=== PATIENT | male | born 1945 | race African-American/Black ===

== ENCOUNTER 2017-08-14 13:43 | Inpatient (IN) | payer MEDICARE, MEDICAID ==
[~2017-08-14] VITALS: Ht 185.4 cm; Wt 79.4 kg
[~2017-08-14 13:43] MED LIST: ASPIR-LOW81 MG PO; IBUPROFEN600 MG ORAL; LOSARTAN-HCTZ1 EACH PO; MOTRIN600 MG PO; NORCO 10-325 T1 EACH PO; NORCO 5-325 TA1 EACH ORAL; NORCO 5-325 TA1 EACH PO; NORVASC10 MG PO; UNOBMED; ZOFRAN4 MG PO
[2017-08-14 13:49] VITALS: BP 105/67
[2017-08-14] MEDS ORDERED: Sodium Chloride 500ML 500 ML IV ONE (13:57)
--- NOTE | 2017-08-14 14:00 | Emergency Room Report ---
History of Present Illness General Chief Complaint: General Complaint Source: Patient Present Illness HPI Patient reports a 2 and half weeks ago he had an episode where he felt dizzy lightheaded describes a syncopal episode After the patient sat up he felt better Since then he has traveled to [place] and came back During the flight then coming back he feels that he has had increased congestion no cough Complains of general malaise and weakness Denies any focal weakness denies any chest pain or shortness of breath His cough with phlegm production does continue Denies any neck pain or photophobia Allergies: Coded Allergies: No Known Allergies (Unverified , 12/09/12) Patient History Past Medical History: see triage record Pertinent Family History: none Reviewed Nursing Documentation: PMH: Agreed, PSxH: Agreed Nursing Documentation-PMH Hx Cardiac Problems: Yes Hx Hypertension: Yes Hx Cancer: No Hx Neurological Problems: No Review of Systems All Other Systems: negative except mentioned in HPI Physical Exam Vital Signs Date Time Temp Pulse Resp B/P (MAP) Pulse Ox O2 Delivery O2 Flow Rate FiO2 08/14/17 13:49 98.1 123 20 105/67 93 Room Air Sp02 EP Interpretation: reviewed, normal General Appearance: well appearing, no apparent distress Head: normocephalic, atraumatic Eyes: bilateral eye PERRL, bilateral eye EOMI ENT: hearing grossly normal, normal pharynx, TMs + canals normal, uvula midline Neck: full range of motion, supple, no meningismus, no bony tend Respiratory: lungs clear, normal breath sounds, no rhonchi, no respiratory distress, no retraction, no accessory muscle use Cardiovascular #1: normal peripheral pulses, regular rate, rhythm, no edema, no gallop, no JVD, no murmur Gastrointestinal: normal bowel sounds, non tender, soft, no mass, no organomegaly, non-distended, no guarding, no hernia, no pulsatile mass, no rebound Genitourinary: no CVA tenderness Musculoskeletal: normal inspection Neurologic: oriented x3, responsive, vamp creaser III-XII nml as tested, motor strength/ tone normal, sensory intact Psychiatric: mood/affect normal Skin: normal color, no rash, warm/dry, palpation normal Lymphatic: normal inspection, no adenopathy Medical Decision Making Diagnostic Impression: Primary Impression: Dehydration Additional Impression: Sepsis ER Course Given the patient's presentation multiple differentials considered Blood work and imaging studies initiated Patient has done better throughout his stay feels better Patient's white blood cell count is elevated Unfortunately I was told that the patient was not able to obtain urine prior to transfer however given the initial complaint to be dark urine and the patient's general weakness UTI and sepsis is considered highly In order not to delay acute care patient was given antibiotics And at this time require transfer secondary to insurance purposes for continued inpatient care Labs Test 08/14/17 14:10 08/14/17 16:00 08/16/17 06:55 White Blood Count 9.2 K/UL (4.8-10.8) 8.1 K/UL (4.8-10.8) Red Blood Count 3.75 M/UL (4.70-6.10) 3.07 M/UL (4.70-6.10) Hemoglobin 11.9 G/DL (14.2-18.0) 10.2 G/DL (14.2-18.0) Hematocrit 36.0 % (42.0-52.0) 29.4 % (42.0-52.0) Mean Corpuscular Volume 96 FL (80-99) 96 FL (80-99) Mean Corpuscular Hemoglobin 31.7 PG (27.0-31.0) 33.2 PG (27.0-31.0) Mean Corpuscular Hemoglobin Concent 32.9 G/DL (32.0-36.0) 34.6 G/DL (32.0-36.0) Red Cell Distribution Width 12.8 % (11.6-14.8) 12.4 % (11.6-14.8) Platelet Count 181 K/UL (150-450) 158 K/UL (150-450) Mean Platelet Volume 8.1 FL (6.5-10.1) 7.1 FL (6.5-10.1) Neutrophils (%) (Auto) 68.8 % (45.0-75.0) % (45.0-75.0) Lymphocytes (%) (Auto) 15.2 % (20.0-45.0) % (20.0-45.0) Monocytes (%) (Auto) 15.7 % (1.0-10.0) % (1.0-10.0) Eosinophils (%) (Auto) 0.0 % (0.0-3.0) % (0.0-3.0) Basophils (%) (Auto) 0.3 % (0.0-2.0) % (0.0-2.0) Sodium Level 135 mEQ/L (135-145) Potassium Level 3.9 mEQ/L (3.4-4.9) Chloride Level 93 mEQ/L (98-107) Carbon Dioxide Level 24 mEQ/L (20-30) Anion Gap 18 (5-15) Blood Urea Nitrogen 10 mg/dL (7-23) Creatinine 1.6 mg/dL (0.7-1.2) Estimat Glomerular Filtration Rate mL/min (>60) Glucose Level 154 mg/dL (74-106) Calcium Level 8.9 mg/dL (8.6-10.2) Total Bilirubin 0.9 mg/dL (0.0-1.2) Aspartate Amino Transf (AST/SGOT) 30 U/L (5-40) Alanine Aminotransferase (ALT/SGPT) 16 U/L (3-41) Alkaline Phosphatase 135 U/L (40-129) Total Creatine Kinase 66 U/L (38-174) Creatine Kinase MB < 1.5 ng/mL (< 6.7) Creatine Kinase MB Relative Index Troponin I < 0.30 ng/mL (<=0.30) Pro-B-Type Natriuretic Peptide 581 pg/mL (0-125) Total Protein 8.6 g/dL (6.6-8.7) Albumin 4.2 g/dL (3.5-5.2) Globulin 4.4 g/dL Albumin/Globulin Ratio 0.9 (1.0-2.7) Lipase 11 U/L (< 60) Urine Color Yellow Urine Appearance Clear Urine pH 9 (4.5-8.0) Urine Specific [place] 1.015 (1.005-1.035) Urine Protein 1+ (NEGATIVE) Urine Glucose (UA) Negative (NEGATIVE) Urine Ketones Negative (NEGATIVE) Urine Occult Blood 2+ (NEGATIVE) Urine Nitrite Negative (NEGATIVE) Urine Bilirubin Negative (NEGATIVE) Urine Urobilinogen 4 MG/DL (0.0-1.0) Urine Leukocyte Esterase 1+ (NEGATIVE) Urine RBC 5-10 /HPF (0 - 0) Urine WBC 0-2 /HPF (0 - 0) Urine Squamous Epithelial Cells None /LPF (NONE/OCC) Urine Bacteria None /HPF (NONE) EKG Diagnostic Results Rate: normal Rhythm: NSR ST Segments: no acute changes Rhythm Strip Diag. Results EP Interpretation: yes Rate: 78 Rhythm: NSR, no PVC's, no ectopy Chest X-Ray Diagnostic Results Chest X-Ray Diagnostic Results : Chest X-Ray Ordered: Yes Indication: Chest Pain EP Interpretation: Yes Interpretation: no consolidation, no effusion, no pneumothorax Impression: No acute disease Electronically Signed by: Kassandra Tran DO Last Vital Signs Date Time Temp Pulse Resp B/P (MAP) Pulse Ox O2 Delivery O2 Flow Rate FiO2 08/14/17 13:49 98.1 123 20 105/67 93 Room Air Status: improved Disposition: [facility] Condition: Improved KASSANDRA TRAN D.O. Aug 14, 2017 14:00
--- NOTE | 2017-08-14 14:42 | Diagnostic Imaging Report ---
Indication: Dyspnea Comparison: 05/23/10 A single view chest radiograph was obtained. Findings: Cardiomediastinal appearance is within normal limits for age. Pulmonary vascularity is appropriate. The diaphragmatic contour is smooth and costophrenic angles are sharp. No pleural effusions are identified. The bones are osteopenic. Impression: No acute findings
[2017-08-14 14:43] LABS: BASOPHILS % (AUTO) 0.3 % (0.0-2.0); LYMPHOCYTES % (AUTO) 15.2 % (20.0-45.0); MEAN CORPUSCULAR HEMOGLOBIN 31.7 PG (27.0-31.0); MEAN CORPUSCULAR HGB CONC 32.9 G/DL (32.0-36.0); MEAN CORPUSCULAR VOLUME 96 FL (80-99); MEAN PLATELET VOLUME 8.1 FL (6.5-10.1); MONOCYTES % (AUTO) 15.7 % (1.0-10.0); NEUTROPHILS % (AUTO) 68.8 % (45.0-75.0); PLATELET COUNT 181 K/UL (150-450); RED BLOOD COUNT 3.75 M/UL (4.70-6.10); RED CELL DISTRIBUTION WIDTH 12.8 % (11.6-14.8); WHITE BLOOD COUNT 9.2 K/UL (4.8-10.8)
[2017-08-14 15:05] VITALS: BP 120/67
[2017-08-14 15:09] LABS: TROPONIN I < 0.30 ng/mL (<=0.30)
[2017-08-14 15:12] LABS: ALANINE AMINOTRANSFERASE 16 U/L (3-41); ALBUMIN/GLOBULIN RATIO 0.9 (1.0-2.7); ANION GAP 18 (5-15); ASPARTATE AMINO TRANSFERASE 30 U/L (5-40); CALCIUM 8.9 mg/dL (8.6-10.2); CARBON DIOXIDE 24 mEQ/L (20-30); CHLORIDE 93 mEQ/L (98-107); CREATININE 1.6 mg/dL (0.7-1.2); HEMOLYSIS 0; LIPASE 11 U/L (< 60); POTASSIUM 3.9 mEQ/L (3.4-4.9); SODIUM 135 mEQ/L (135-145); TOTAL PROTEIN 8.6 g/dL (6.6-8.7)
[2017-08-14 15:23] LABS: CKMB < 1.5 ng/mL (< 6.7)
[2017-08-14 16:17] LABS: APPEARANCE,URINE CLEAR; KETONES,URINE NEGATIVE (NEGATIVE); LEUKOCYTE ESTERASE ,URINE 1+ (NEGATIVE); NITRITE,URINE NEGATIVE (NEGATIVE); PH,URINE 9 (4.5-8.0); PROTEIN,URINE 1+ (NEGATIVE); UROBILINOGEN,URINE 4 MG/DL (0.0-1.0)
[2017-08-14 16:41] LABS: WBC,URINE 0-2 /HPF (0 - 0)
[2017-08-14 17:01] VITALS: BP 108/60
[2017-08-14] MEDS ORDERED: TAMSULOSIN HCL0.4 MG ORAL (17:36)
[2017-08-14 19:36] VITALS: BP 115/76
[2017-08-15] VITALS: BP 125/69
[2017-08-15 04:00] VITALS: BP 106/67
[2017-08-15 08:30] VITALS: BP 112/68
--- NOTE | 2017-08-15 11:33 | Consultation ---
Consult Note Consult Note asked to eval for Cr 1.6 Patient reports a 2 and half weeks ago he had an episode where he felt dizzy lightheaded describes a syncopal episode After the patient sat up he felt better Since then he has traveled to [place] and came back During the flight then coming back he feels that he has had increased congestion no cough Complains of general malaise and weakness Denies any focal weakness denies any chest pain or shortness of breath His cough with phlegm production does continue Denies any neck pain or photophobia Hx Cardiac Problems: Yes Hx Hypertension: Yes patient been on Ibuprofen , HCTZ and Coozar Also has anemia Examined- data reviewed Assessment/Plan Renal failure, likely acute( dehydration and Low BP) Anemia h/o HTN presents with Syncope Plan: Fluid challenge- Hold BP meds Monitor renal parameters and lytes Gastric support SHANNON CLINE Aug 15, 2017 11:33
[2017-08-15 12:00] VITALS: BP 117/70
[2017-08-15] MEDS ORDERED: Promethazine/Codeine 5ml UD ORAL PRN ×2 (13:00→17:00)
[2017-08-15] MEDS ORDERED: Albuterol/Ipratropium 3ml neb HHN SCH ×2 (13:00→19:00)
--- NOTE | 2017-08-15 13:03 | Consultation ---
History of Present Illness General Date patient seen: Aug 15, 2017 Chief Complaint: General Complaint Reason for Consultation: cough Present Illness HPI 72 year old with hx of smoking presented with CC of cough and yellowish phlegm for a few days. C/o of episode of syncope a few days ago. He smokes for many years about 1/2 pack a day. Allergies: Coded Allergies: No Known Allergies (Unverified , 12/09/12) Medication History Scheduled Amlodipine Besylate (Norvasc), 10 MG PO DAILY, (Reported) Aspirin* (Aspir-Low*), 81 MG PO DAILY, (Reported) Hydrocodone Bit/Acetaminophen 10-325* ([place] 10-325*), 1 TAB PO Q6H Hydrocodone Bit/Acetaminophen 5-325* ([place] 5-325*), 1 TAB PO Q6H Ibuprofen* (Motrin*), 600 MG PO QID, (Reported) Ibuprofen* (Motrin*), 600 MG ORAL THREE TIMES A DAY Losartan/Hydrochlorothiazide (Losartan-Hctz 100-12.5 Mg Tab), 1 TAB PO DAILY, ( Reported) Ondansetron (Zofran), 4 MG PO Q8H Tamsulosin Hcl (Tamsulosin Hcl*), 0.4 MG ORAL DAILY, (Reported) Scheduled PRN Hydrocodone Bit/Acetaminophen 5-325* ([place] 5-325*), 1 TAB ORAL Q6H PRN for For Pain Hydrocodone Bit/Acetaminophen 5-325* ([place] 5-325*), 1 TAB ORAL Q6H PRN for For Pain Patient History Healthcare decision maker Resuscitation status Full Code Advanced Directive on File No Past Medical/Surgical History Past Medical/Surgical History: (1) COPD (chronic obstructive pulmonary disease) Review of Systems Respiratory: Reports: cough, shortness of breath, sputum All Other Systems: negative except mentioned in HPI Physical Exam General Appearance: WD/WN Lines, tubes and drains: peripheral HEENT: normocephalic, atraumatic Neck: non-tender, normal alignment Respiratory/Chest: chest wall non-tender, lungs clear Breasts: no masses Cardiovascular/Chest: normal peripheral pulses Abdomen: normal bowel sounds, non tender Last 24 Hour Vital Signs Date Time Temp Pulse Resp B/P (MAP) Pulse Ox O2 Delivery O2 Flow Rate FiO2 08/15/17 08:30 97.7 93 19 112/68 90 Room Air 9/27/17 08:00 91 08/15/17 04:00 97.5 96 20 106/67 96 Room Air 08/15/17 03:50 86 08/15/17 00:00 97.5 94 20 125/69 97 Room Air 08/14/17 23:54 92 08/14/17 21:22 95 21 114/72 97 Room Air 08/14/17 19:36 98.2 103 20 115/76 100 Room Air 08/14/17 17:01 97.8 98 20 108/60 97 Room Air 08/14/17 15:05 98.1 96 18 120/67 98 Room Air 08/14/17 13:49 98.1 123 20 105/67 93 Room Air 08/14/17 13:49 98.1 123 20 105/67 93 Room Air Laboratory Tests Test 08/14/17 14:10 08/14/17 16:00 White Blood Count 9.2 K/UL (4.8-10.8) Red Blood Count 3.75 M/UL (4.70-6.10) L Hemoglobin 11.9 G/DL (14.2-18.0) L Hematocrit 36.0 % (42.0-52.0) L Mean Corpuscular Volume 96 FL (80-99) Mean Corpuscular Hemoglobin 31.7 PG (27.0-31.0) H Mean Corpuscular Hemoglobin Concent 32.9 G/DL (32.0-36.0) Red Cell Distribution Width 12.8 % (11.6-14.8) Platelet Count 181 K/UL (150-450) Mean Platelet Volume 8.1 FL (6.5-10.1) Neutrophils (%) (Auto) 68.8 % (45.0-75.0) Lymphocytes (%) (Auto) 15.2 % (20.0-45.0) L Monocytes (%) (Auto) 15.7 % (1.0-10.0) H Eosinophils (%) (Auto) 0.0 % (0.0-3.0) Basophils (%) (Auto) 0.3 % (0.0-2.0) Sodium Level 135 mEQ/L (135-145) Potassium Level 3.9 mEQ/L (3.4-4.9) Chloride Level 93 mEQ/L (98-107) L Carbon Dioxide Level 24 mEQ/L (20-30) Anion Gap 18 (5-15) H Blood Urea Nitrogen 10 mg/dL (7-23) Creatinine 1.6 mg/dL (0.7-1.2) H Estimat Glomerular Filtration Rate mL/min (>60) Glucose Level 154 mg/dL (74-106) H Calcium Level 8.9 mg/dL (8.6-10.2) Total Bilirubin 0.9 mg/dL (0.0-1.2) Aspartate Amino Transf (AST/SGOT) 30 U/L (5-40) Alanine Aminotransferase (ALT/SGPT) 16 U/L (3-41) Alkaline Phosphatase 135 U/L (40-129) H Total Creatine Kinase 66 U/L (38-174) Creatine Kinase MB < 1.5 ng/mL (< 6.7) Creatine Kinase MB Relative Index Troponin I < 0.30 ng/mL (<=0.30) Pro-B-Type Natriuretic Peptide 581 pg/mL (0-125) H Total Protein 8.6 g/dL (6.6-8.7) Albumin 4.2 g/dL (3.5-5.2) Globulin 4.4 g/dL Albumin/Globulin Ratio 0.9 (1.0-2.7) L Lipase 11 U/L (< 60) Urine Color Yellow Urine Appearance Clear Urine pH 9 (4.5-8.0) Urine Specific [place] 1.015 (1.005-1.035) Urine Protein 1+ (NEGATIVE) H Urine Glucose (UA) Negative (NEGATIVE) Urine Ketones Negative (NEGATIVE) Urine Occult Blood 2+ (NEGATIVE) H Urine Nitrite Negative (NEGATIVE) Urine Bilirubin Negative (NEGATIVE) Urine Urobilinogen 4 MG/DL (0.0-1.0) H Urine Leukocyte Esterase 1+ (NEGATIVE) H Urine RBC 5-10 /HPF (0 - 0) H Urine WBC 0-2 /HPF (0 - 0) Urine Squamous Epithelial Cells None /LPF (NONE/OCC) Urine Bacteria None /HPF (NONE) Height (Feet): 6 Height (Inches): 1.00 Weight (Pounds): 175 Medications Current Medications Medications (Trade) Dose Ordered Sig/Bree Route PRN Reason Start Time Stop Time Status Last Admin Dose Admin Acetaminophen (Tylenol) 650 mg Q6H PRN ORAL Mild Pain/Temp > 100.5 08/14/17 22:45 09/13/17 22:44 Albuterol/ Ipratropium (DuoNeb 0.5-3(2.5)mg/3ml) 3 ml Q6HRT HHN 08/15/17 13:00 08/20/17 12:59 UNV Aspirin (Ecotrin) 81 mg DAILY ORAL 08/16/17 09:00 09/15/17 08:59 Dextrose (Dextrose 50%) STAT PRN IV Hypoglycemia 08/15/17 06:30 09/14/17 06:29 Piperacillin Sod/ Tazobactam Sod 3.375 gm/Sodium Chloride 110 ml @ 220 mls/hr EVERY 8 HOURS IVPB 08/15/17 14:00 08/22/17 13:59 UNV Promethazine HCl/ Codeine (Phenergan with Codeine) 5 ml Q4H PRN ORAL For Cough 08/15/17 13:00 09/14/17 12:59 UNV Sodium Chloride 1,000 ml @ 100 mls/hr Q10H IV 08/15/17 11:45 08/15/17 21:44 08/15/17 11:45 Tamsulosin HCl (Flomax) 0.4 mg QHS ORAL 08/15/17 21:00 09/15/17 08:59 Theophylline (Sky-Dur) 100 mg EVERY 12 HOURS ORAL 08/15/17 21:00 09/14/17 20:59 UNV Assessment/Plan Problem List: (1) Purulent bronchitis ICD Codes: J41.1 - Mucopurulent chronic bronchitis SNOMED: 19316229 (2) COPD (chronic obstructive pulmonary disease) ICD Codes: J44.9 - Chronic obstructive pulmonary disease, unspecified SNOMED: 98191562 Assessment/Plan check sputum respiratory treatment IV abx incentive spirometry LORY JERNIGAN Aug 15, 2017 13:03
[2017-08-15] MEDS ORDERED: Piperacillin/Tazobactam 3.375 GM in NS 110 ML IVPB SCH ×5 (14:00→22:00)
[2017-08-15] MEDS ORDERED: Aspirin EC 81mg tab ORAL SCH (17:00)
--- NOTE | 2017-08-15 17:25 | Cardiac Electrophysiology PN ---
Subjective Subjective [id number] Objective Last 24 Hour Vital Signs Date Time Temp Pulse Resp B/P (MAP) Pulse Ox O2 Delivery O2 Flow Rate FiO2 08/15/17 13:35 96 18 100 Room Air 08/15/17 13:30 93 18 100 Room Air 08/15/17 12:00 98.3 89 18 117/70 92 Room Air 08/15/17 08:30 97.7 93 19 112/68 90 Room Air 08/15/17 08:00 91 08/15/17 04:00 97.5 96 20 106/67 96 Room Air 08/15/17 03:50 86 08/15/17 00:00 97.5 94 20 125/69 97 Room Air 08/14/17 23:54 92 08/14/17 21:22 95 21 114/72 97 Room Air 08/14/17 19:36 98.2 103 20 115/76 100 Room Air VINITA HERNÁNDEZ Aug 15, 2017 17:25
--- NOTE | 2017-08-15 17:54 | Infectious Diseases Prog Note ---
Assessment/Plan Problems: (1) Purulent bronchitis Assessment & Plan: will start levaquin, and stop zosyn ,continue bronchodilaters (2) UTI (urinary tract infection) Assessment & Plan: will send urine culture and start levaquin (3) COPD (chronic obstructive pulmonary disease) Assessment & Plan: continue antibiotics, bronchodilators, monitor CXR Subjective Allergies: Coded Allergies: No Known Allergies (Unverified , 12/09/12) Objective Vital Signs Last 24 Hour Vital Signs Date Time Temp Pulse Resp B/P (MAP) Pulse Ox O2 Delivery O2 Flow Rate FiO2 08/15/17 13:35 96 18 100 Room Air 08/15/17 13:30 93 18 100 Room Air 08/15/17 12:00 98.3 89 18 117/70 92 Room Air 08/15/17 08:30 97.7 93 19 112/68 90 Room Air 08/15/17 08:00 91 08/15/17 04:00 97.5 96 20 106/67 96 Room Air 08/15/17 03:50 86 08/15/17 00:00 97.5 94 20 125/69 97 Room Air 08/14/17 23:54 92 08/14/17 21:22 95 21 114/72 97 Room Air 08/14/17 19:36 98.2 103 20 115/76 100 Room Air Height (Feet): 6 Height (Inches): 1.00 Weight (Pounds): 175 Current Medications Medications (Trade) Dose Ordered Sig/Bree Route PRN Reason Start Time Stop Time Status Last Admin Dose Admin Acetaminophen (Tylenol) 650 mg Q6H PRN ORAL Mild Pain/Temp > 100.5 08/15/17 17:00 09/13/17 16:59 Albuterol/ Ipratropium (DuoNeb 0.5-3(2.5)mg/3ml) 3 ml Q6HRT HHN 08/15/17 19:00 08/20/17 12:59 Aspirin (Ecotrin) 81 mg DAILY ORAL 08/15/17 17:00 09/14/17 16:59 08/15/17 17:12 Dextrose (Dextrose 50%) STAT PRN IV Hypoglycemia 08/15/17 17:00 09/14/17 16:59 Piperacillin Sod/ Tazobactam Sod 3.375 gm/Sodium Chloride 110 ml @ 27.5 mls/hr EVERY 8 HOURS IVPB 08/15/17 22:00 08/22/17 13:59 Promethazine HCl/ Codeine (Phenergan with Codeine) 5 ml Q4H PRN ORAL For Cough 08/15/17 17:00 09/14/17 12:59 Tamsulosin HCl (Flomax) 0.4 mg QHS ORAL 08/15/17 21:00 09/15/17 08:59 Theophylline (Sky-Dur) 100 mg EVERY 12 HOURS ORAL 08/15/17 21:00 09/14/17 20:59 Kristal Mendenhall M.D. Aug 15, 2017 17:54
[2017-08-15] MEDS ORDERED: Tubing IV Secondary IV ONE (18:32)
[2017-08-15 19:59] VITALS: BP 131/78
[2017-08-15] MEDS ORDERED: Miralax 17gm pkt ORAL PRN ×2 (20:00→22:28)
[2017-08-15] MEDS ORDERED: Tamsulosin 0.4mg cap ORAL SCH ×2 (21:00)
[2017-08-15] MEDS ORDERED: Theophylline ER 100mg ORAL SCH ×2 (21:00)
[2017-08-15] MEDS ORDERED: LORazepam Inj 2mg/ml 1ml IV PRN ×2 (21:15→22:15)
[2017-08-15] MEDS: Albuterol/Ipratropium 3ml neb HHN SCH (22:43)
[2017-08-16] VITALS: BP 130/77
[2017-08-16] MEDS: Promethazine/Codeine 5ml UD ORAL PRN ×4 (00:53→19:30)
--- NOTE | 2017-08-16 04:00 | Consultation ---
DATE OF CONSULTATION: 08/15/2017 NOTE: "INCOMPLETE DICTATION" INFECTIOUS DISEASES CONSULTATION CONSULTING PHYSICIAN: Kristal Mendenhall M.D. REQUESTING PHYSICIAN: Kassandra Shelton M.D. Reason For Consultation: Bronchitis and urine infection, recommendation for antibiotics therapy. History Of Present Illness: The patient is a 72-year-old male with past medical history of coronary artery disease and hypertension, presented to the hospital at [facility] with dizziness and lightheadedness with presyncopal episodes. Symptoms started two and a half weeks ago. Since he traveled to [place] and came back, he developed congestion and cough productive of yellowish phlegm. Denied any fever or chills. Denied any sick contacts. No shortness of breath. No chest pain. The patient had a chest x-ray in the emergency room, it did not show any acute infiltration. Urinalysis showed evidence of urine infection. The patient was given Zosyn in the emergency room and I was consulted by the primary provider for antibiotics treatment and further management. Past Medical History: Significant for coronary artery disease and hypertension. PAST SURGICAL HISTORY: Negative. Medications: He is on Zosyn IV by the admitting physician. For the rest of his medications, please refer to MAR. ALLERGIES: He has no known drug allergy. Social History: The patient lives with family. Denied using any drugs, tobacco, or alcohol. FAMILY HISTORY: Negative. Review Of Systems: A 14-point of system reviewed were all negative apart from the one I mentioned above in my History and Physical. Kristal Mendenhall M.D. DR: LUCY JOB#: [id number] CC:
[2017-08-16 04:28] VITALS: BP 106/66
[2017-08-16 07:11] LABS: MEAN CORPUSCULAR HEMOGLOBIN 33.2 PG (27.0-31.0); MEAN CORPUSCULAR HGB CONC 34.6 G/DL (32.0-36.0); MEAN CORPUSCULAR VOLUME 96 FL (80-99); MEAN PLATELET VOLUME 7.1 FL (6.5-10.1); PLATELET COUNT 158 K/UL (150-450); RED BLOOD COUNT 3.07 M/UL (4.70-6.10); RED CELL DISTRIBUTION WIDTH 12.4 % (11.6-14.8); WHITE BLOOD COUNT 8.1 K/UL (4.8-10.8)
[2017-08-16] MEDS: Albuterol/Ipratropium 3ml neb HHN SCH (07:42)
[2017-08-16 07:43] LABS: TROPONIN I < 0.30 ng/mL (<=0.30)
[2017-08-16 07:48] LABS: HEMOLYSIS 6; IRON 60 ug/dL (59-158); TOTAL IRON BINDING CAPACITY 237 ug/dL (250-400)
[2017-08-16 07:49] LABS: ALANINE AMINOTRANSFERASE 19 U/L (3-41); ALBUMIN/GLOBULIN RATIO 0.8 (1.0-2.7); ANION GAP 16 (5-15); ASPARTATE AMINO TRANSFERASE 28 U/L (5-40); CALCIUM 8.6 mg/dL (8.6-10.2); CARBON DIOXIDE 22 mEQ/L (20-30); CHLORIDE 92 mEQ/L (98-107); CREATININE 1.3 mg/dL (0.7-1.2); CRP QUANT 6.5 mg/dL (< 0.5); MAGNESIUM 1.7 mg/dL (1.7-2.5); PHOSPHORUS 3.6 mg/dL (2.5-4.8); POTASSIUM 4.2 mEQ/L (3.4-4.9); SODIUM 130 mEQ/L (135-145); TOTAL PROTEIN 7.6 g/dL (6.6-8.7); URIC ACID 7.8 mg/dL (3.0-7.5)
[2017-08-16 07:54] LABS: FERRITIN 780 ng/mL (10-230)
[2017-08-16 08:03] VITALS: BP 107/65
[2017-08-16] MEDS: Aspirin EC 81mg tab ORAL SCH (08:08)
[2017-08-16] MEDS: Theophylline ER 100mg ORAL SCH ×2 (08:08→21:49)
[2017-08-16 08:34] LABS: HEMOGLOBIN A1C 6.7 % (< 6.0)
[2017-08-16 08:49] LABS: BAND NEUTROPHILS % (MANUAL) 0 % (0-8); BASOPHILS % (MANUAL) 0 % (0-2); EOSINOPHILS % (MANUAL) 0 % (0-3); LYMPHOCYTES % (MANUAL) 22 % (20-45); NEUTROPHILS % (MANUAL) 60 % (45-75); PLATELET ESTIMATE ADEQUATE; PLATELET MORPHOLOGY NORMAL; TOTAL CELLS COUNTED 100
[2017-08-16] MEDS ORDERED: Tamsulosin 0.4mg cap ORAL SCH ×2 (09:00→21:00)
[2017-08-16] MEDS ORDERED: Aspirin EC 81mg tab ORAL SCH (09:00)
--- NOTE | 2017-08-16 09:00 | History and Physical Report ---
DATE OF ADMISSION: 08/14/2017 History of Present Illness: The patient admitted for dehydration and syncope. The patient had a syncope. According to him, it was about 2 weeks ago. The patient is weak, has flu-like symptoms for the past couple of days including rhinorrhea, weakness, dizziness with cough and was admitted per the ER doctor for syncope workup as well as for azotemia and elevated BNP. We need to see if the patient has any congestive heart failure or not. Also we work the patient up for that as well. The patient denies any orthopnea. Denies leg edema. Denies fever or chills. Denies shortness of breath. Denies wheezing, but does have cough. PAST MEDICAL HISTORY: Significant for hypertension and BPH. PAST SURGICAL HISTORY: None. MEDICATIONS: Aspirin, hydrochlorothiazide, Flomax, and Norvasc. ALLERGIES: None. Social History: The patient has history of smoking, history of drug abuse, and history of alcohol abuse. FAMILY HISTORY: Noncontributory. Review of Systems: HEENT: Denies headaches. Respiratory: Denies shortness of breath. Does have cough, nonproductive, for the last couple of days. Cardiovascular: Denies chest pain. Denies orthopnea. Gastrointestinal: Denies nausea, vomiting, or diarrhea. Extremities: Denies any pain in the lower extremities. Central Nervous System: Reports a syncopal episode recently and also has dizziness with each cough that he makes. He feels dizzy. Denies diplopia. PHYSICAL EXAMINATION: Vital Signs: Temperature is 97.5, pulse is 94, and blood pressure 135/69. HEENT: PERRLA. NECK: Supple. No lymphadenopathy. CHEST: Clear to auscultation. CARDIOVASCULAR: Regular rate and rhythm. Gastrointestinal: Soft. Nondistended. Positive bowel sounds. Nontender. EXTREMITIES: 1+ edema. Neurologic: Reflexes are equal on both sides. Moves all 4 extremities. Sensory intact to light touch. Laboratory And Diagnostic Data: WBC of 9.3, hemoglobin of 11.9, and platelets of 181,000. Sodium 135, potassium of 3.9, BUN of 10, creatinine of 1.6, and glucose of 154. Assessment And Plan: Rule out congestive heart failure. The patient also has a syncope episode and we will do a syncopal workup. The patient also has azotemia. For the above-mentioned findings and diagnoses, I have consulted Dr. Edouard, Dr. Melo, Dr. Barraza, and Dr. Yanes 02:46 diagnoses and for the above-mentioned problems. Kassandra Shelton M.D. DR: SOTERO JOB#: [id number] CC:
--- NOTE | 2017-08-16 09:02 | Consultation ---
DATE OF CONSULTATION: 08/15/2017 CARDIOLOGY CONSULTATION CONSULTING PHYSICIAN: Santiago Yanes M.D. REFERRING PHYSICIAN: Kassandra Shelton M.D. REASON FOR CONSULTATION: Presyncope and shortness of breath. History Of Present Illness: The patient is a 72-year-old gentleman with history of hypertension and diabetic hypertrophy as well as history of heavy smoking, presented to the hospital with episode of presyncope a few days ago. The patient also was complaining of cough and yellowish phlegm for few days. The patient was admitted and a Cardiology consultation was obtained for further evaluation and management. PAST MEDICAL HISTORY: Hypertension. FAMILY HISTORY: Not contributory. SOCIAL HISTORY: He lives at home. Continues to smoke cigarettes. Review Of Systems: His review of system was performed and was negative other what was mentioned in history of present illness. PHYSICAL EXAMINATION: Vital Signs: Blood pressure is 117/70, pulse 89, respirations 18, and temperature is 98.3 degrees. HEAD AND NECK: Shows no JVD. LUNGS: Coarse rhonchi bilaterally. CARDIOVASCULAR: Shows regular S1 and S2 with no gallop or murmur. ABDOMEN: Soft. EXTREMITIES: There is no pitting edema. Laboratory Data: Labs show white count of 9.2, hemoglobin of 12, hematocrit of 36, and platelet count is 181,000. Sodium 135, potassium 3.9, BUN of 10, creatinine 1.6, and glucose 154. Troponin is negative. BNP is 581. ASSESSMENT AND PLAN: 1. Presyncope. The patient does not have any arrhythmia. His BNP level is 581. We will order an echocardiogram to evaluate for ejection fraction and wall motion abnormality. His EKG also showed normal sinus rhythm with poor R-wave progression. 2. Hypertension. The patient was on Norvasc that was discontinued earlier as the blood pressure was in the 100s. We will hold off on antihypertensives, otherwise we can resume the patient's later on. Obviously, hydrochlorothiazide and Cozaar were discontinued for renal failure. 3. Chronic kidney disease. Creatinine 1.6. Again, hold on Cozaar and hydrochlorothiazide. 4. Presyncope. This is not clear at this time. We will do an echocardiogram for further evaluation. Thank you very much, Dr. Shelton, for allowing me to participate in the care of this patient. Please do not hesitate to contact for any questions regarding my evaluation. Santiago Yanes M.D. DR: ANAND JOB#: [id number] CC:
--- NOTE | 2017-08-16 09:15 | Consultation ---
DATE OF CONSULTATION: 08/15/2017 HEMATOLOGY/ONCOLOGY CONSULTATION CONSULTING PHYSICIAN: Luis Frausto M.D. REQUESTING PHYSICIAN: Kassandra Shelton M.D. REASON FOR CONSULTATION: Evaluation of anemia. IDENTIFICATION DATA: Dear Dr. Shelton, The patient is a pleasant 72-year-old male with past medical history significant for cough production as well as yellowish phlegm for the past several days. He was noted to continue to be smoking at this time. He was noted to have anemia, which is mild and Hematology service was consulted for further evaluation and treatment. In addition, he reports two and a half weeks of dizziness potentially secondary to presyncopal versus syncopal episode. He complains of general malaise and weakness and cough consistent with phlegm production. PAST MEDICAL HISTORY: As noted above. PAST SURGICAL HISTORY: None noted. ALLERGIES: No known drug allergies. Medications: Amlodipine, aspirin, Ronceverte, losartan, Zofran, and tamsulosin. CODE STATUS: Full Code. Review Of Systems: Constitutional: No fever, chills, or night sweats. Skin: No rashes, bumps, or itching. HEENT: No headache, hearing, or vision changes. Breasts: No lumps, pain, or discharge. Pulmonary: Cough and some shortness of breath along with phlegm production noted. Gastrointestinal: No nausea, vomiting, or diarrhea. Genitourinary: No dysuria, frequency, or urgency. Musculoskeletal: No joint swelling, muscle pain, or trauma. PHYSICAL EXAMINATION: VITAL SIGNS: Reviewed. GENERAL: The patient is in no acute distress. PULMONARY: Decreased breath sounds. Some crackles noted. CARDIOVASCULAR: Regular rate. No S3 or S4. ABDOMEN: Soft, nontender, and nondistended. EXTREMITIES: There is 1+ edema. Laboratory Data: WBC 9.2, hemoglobin 11.9, hematocrit 36, and platelet count 181,000. IMAGING: Chest x-ray consistent with no acute findings. ASSESSMENT AND PLAN: 1. Anemia, secondary to chronic disease. We will order for anemia workup. 2. Urinary tract infection, currently is on antibiotics per Infectious Disease service. 3. Chronic obstructive pulmonary disease. Pulmonary is on board. He is on antibiotics as well. Chest x-ray reviewed. 4. Purulent bronchitis, currently on Levaquin and bronchodilators. 5. Acute kidney injury. Seen by Nephrology. 6. Hypertension. 7. The patient . I appreciate the consultation. Luis Frausto M.D. DR: TRAE JOB#: [id number] CC:
--- NOTE | 2017-08-16 10:21 | Diagnostic Imaging Report ---
Indication: Altered level of consciousness, syncope Technique: spiral acquisitions obtained through the brain. Angled axial and coronal 5 x 5 mm slices were reconstructed. No IV contrast utilized. Radiation dose was minimized using automated exposure control Total dose length product 1369 mGycm. CTDIvol(s) 70 mGy Comparison: none FINDINGS: No acute hemorrhage or edema. No mass effect or midline shift. There is age-related enlargement of the ventricles and extra axial CSF spaces. There is periventricular deep white matter ischemic change. Normal [place]-white differentiation. Visualized orbits are unremarkable. There is bilateral ethmoid sinus disease. Intact calvarium. 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 Negative for acute intracranial bleed or mass effect Sinus disease The CT scanner at [facility] is accredited by the [employer] and the scans are performed using protocols designed to limit radiation exposure to as low as reasonably achievable to attain images of sufficient resolution adequate for diagnostic evaluation
[2017-08-16 11:26] VITALS: BP 126/77
--- NOTE | 2017-08-16 12:06 | General Progress Note ---
Assessment/Plan Status: stable Status Narrative Cr lower Assessment/Plan Renal failure, likely acute( dehydration and Low BP) Anemia h/o HTN presents with Syncope Plan: Fluid challenge- again Hold BP meds Monitor renal parameters and lytes Gastric support Subjective ROS Limited/Unobtainable: No Constitutional: Reports: malaise Allergies: Coded Allergies: No Known Allergies (Unverified , 12/09/12) Objective Last 24 Hour Vital Signs Date Time Temp Pulse Resp B/P (MAP) Pulse Ox O2 Delivery O2 Flow Rate FiO2 08/16/17 11:26 96.9 87 20 126/77 98 Room Air 08/16/17 08:03 96.6 76 20 107/65 97 Room Air 08/16/17 08:00 76 08/16/17 07:38 Room Air 08/16/17 07:36 Room Air 08/16/17 04:28 97.9 84 20 106/66 97 Room Air 08/16/17 04:00 79 08/16/17 01:07 Room Air 08/16/17 01:07 Room Air 08/16/17 00:00 83 08/16/17 00:00 98.0 98 20 130/77 98 Room Air 08/15/17 21:56 92 08/15/17 19:59 98.2 102 20 131/78 94 Room Air 08/15/17 19:37 107 18 100 Room Air 08/15/17 19:21 96 18 98 Room Air 08/15/17 13:35 96 18 100 Room Air 08/15/17 13:30 93 18 100 Room Air Intake and Output 08/16/17 08/17/17 19:00 07:00 Intake Total 320 ml Balance 320 ml Intake Oral 320 ml # Voids 2 Laboratory Tests 08/16/17 06:55: White Blood Count 8.1, Red Blood Count 3.07L, Hemoglobin 10.2L, Hematocrit 29.4L , Mean Corpuscular Volume 96, Mean Corpuscular Hemoglobin 33.2H, Mean Corpuscular Hemoglobin Concent 34.6, Red Cell Distribution Width 12.4, Platelet Count 158, Mean Platelet Volume 7.1, Neutrophils (%) (Auto) , Lymphocytes (%) ( Auto) , Monocytes (%) (Auto) , Eosinophils (%) (Auto) , Basophils (%) (Auto) , Differential Total Cells Counted 100, Neutrophils % (Manual) 60, Lymphocytes % ( Manual) 22, Monocytes % (Manual) 18H, Eosinophils % (Manual) 0, Basophils % ( Manual) 0, Band Neutrophils 0, Platelet Estimate Adequate, Platelet Morphology Normal, Sodium Level 130L, Potassium Level 4.2, Chloride Level 92L, Carbon Dioxide Level 22, Anion Gap 16H, Blood Urea Nitrogen 10, Creatinine 1.3H, Estimat Glomerular Filtration Rate , Glucose Level 121H, Hemoglobin A1c 6.7H, Uric Acid 7.8H, Calcium Level 8.6, Phosphorus Level 3.6, Magnesium Level 1.7, Iron Level 60, Total Iron Binding Capacity 237L, Percent Iron Saturation 25, Unsaturated Iron Binding 177, Ferritin 780H, Total Bilirubin 0.7, Gamma Glutamyl Transpeptidase 221H, Aspartate Amino Transf (AST/SGOT) 28, Alanine Aminotransferase (ALT/SGPT) 19, Alkaline Phosphatase 130H, Total Creatine Kinase 62, Troponin I < 0.30, C-Reactive Protein, Quantitative 6.5H, Pro-B-Type Natriuretic Peptide 208H, Total Protein 7.6, Albumin 3.5, Globulin 4.1, Albumin/ Globulin Ratio 0.8L, Vitamin B12 Level 1235H, Folate [Pending], Thyroid Stimulating Hormone (TSH) 3.490, Free Thyroxine 1.32 Height (Feet): 6 Height (Inches): 1.00 Weight (Pounds): 175 General Appearance: no apparent distress Objective PE not changed SHANNON CLINE Aug 16, 2017 12:06
--- NOTE | 2017-08-16 12:31 | Pulmonology Progress Note ---
Assessment/Plan Problems: (1) Purulent bronchitis (2) COPD (chronic obstructive pulmonary disease) (3) Uncontrolled seizures (4) Syncope Assessment/Plan improving respiratory treatment continue respiratory treatment check sputum cultures Subjective ROS Limited/Unobtainable: No Interval Events: less cough, no SOB Constitutional: Reports: no symptoms HEENT: Repors: no symptoms Allergies: Coded Allergies: No Known Allergies (Unverified , 12/09/12) Objective Last 24 Hour Vital Signs Date Time Temp Pulse Resp B/P (MAP) Pulse Ox O2 Delivery O2 Flow Rate FiO2 08/16/17 11:26 96.9 87 20 126/77 98 Room Air 08/16/17 08:03 96.6 76 20 107/65 97 Room Air 08/16/17 08:00 76 08/16/17 07:38 Room Air 08/16/17 07:36 Room Air 08/16/17 04:28 97.9 84 20 106/66 97 Room Air 08/16/17 04:00 79 08/16/17 01:07 Room Air 08/16/17 01:07 Room Air 08/16/17 00:00 83 08/16/17 00:00 98.0 98 20 130/77 98 Room Air 08/15/17 21:56 92 08/15/17 19:59 98.2 102 20 131/78 94 Room Air 08/15/17 19:37 107 18 100 Room Air 08/15/17 19:21 96 18 98 Room Air 08/15/17 13:35 96 18 100 Room Air 08/15/17 13:30 93 18 100 Room Air Intake and Output 08/16/17 08/17/17 19:00 07:00 Intake Total 320 ml Balance 320 ml Intake Oral 320 ml # Voids 2 General Appearance: WD/WN HEENT: normocephalic, atraumatic Respiratory/Chest: chest wall non-tender, lungs clear Cardiovascular: normal peripheral pulses, normal rate Abdomen: normal bowel sounds, soft, non tender Genitourinary: normal external genitalia Extremities: no cyanosis Skin: no rash Neurologic/Psychiatric: managing broker II-XII grossly normal Lymphatic: no neck adenopathy Microbiology Date/Time Source Procedure Growth Status 08/15/17 15:30 Sputum Gram Stain - Final Resulted 08/15/17 15:30 Sputum Sputum Culture Pending Resulted Laboratory Tests 08/16/17 06:55: White Blood Count 8.1, Red Blood Count 3.07L, Hemoglobin 10.2L, Hematocrit 29.4L , Mean Corpuscular Volume 96, Mean Corpuscular Hemoglobin 33.2H, Mean Corpuscular Hemoglobin Concent 34.6, Red Cell Distribution Width 12.4, Platelet Count 158, Mean Platelet Volume 7.1, Neutrophils (%) (Auto) , Lymphocytes (%) ( Auto) , Monocytes (%) (Auto) , Eosinophils (%) (Auto) , Basophils (%) (Auto) , Differential Total Cells Counted 100, Neutrophils % (Manual) 60, Lymphocytes % ( Manual) 22, Monocytes % (Manual) 18H, Eosinophils % (Manual) 0, Basophils % ( Manual) 0, Band Neutrophils 0, Platelet Estimate Adequate, Platelet Morphology Normal, Sodium Level 130L, Potassium Level 4.2, Chloride Level 92L, Carbon Dioxide Level 22, Anion Gap 16H, Blood Urea Nitrogen 10, Creatinine 1.3H, Estimat Glomerular Filtration Rate , Glucose Level 121H, Hemoglobin A1c 6.7H, Uric Acid 7.8H, Calcium Level 8.6, Phosphorus Level 3.6, Magnesium Level 1.7, Iron Level 60, Total Iron Binding Capacity 237L, Percent Iron Saturation 25, Unsaturated Iron Binding 177, Ferritin 780H, Total Bilirubin 0.7, Gamma Glutamyl Transpeptidase 221H, Aspartate Amino Transf (AST/SGOT) 28, Alanine Aminotransferase (ALT/SGPT) 19, Alkaline Phosphatase 130H, Total Creatine Kinase 62, Troponin I < 0.30, C-Reactive Protein, Quantitative 6.5H, Pro-B-Type Natriuretic Peptide 208H, Total Protein 7.6, Albumin 3.5, Globulin 4.1, Albumin/ Globulin Ratio 0.8L, Vitamin B12 Level 1235H, Folate [Pending], Thyroid Stimulating Hormone (TSH) 3.490, Free Thyroxine 1.32 Current Medications Medications (Trade) Dose Ordered Sig/Bree Route PRN Reason Start Time Stop Time Status Last Admin Dose Admin Acetaminophen (Tylenol) 650 mg Q6H PRN ORAL Mild Pain/Temp > 100.5 08/15/17 23:00 09/13/17 16:59 Albuterol/ Ipratropium (DuoNeb 0.5-3(2.5)mg/3ml) 3 ml Q6HRT HHN 08/16/17 01:00 08/20/17 12:59 Aspirin (Ecotrin) 81 mg DAILY ORAL 08/16/17 09:00 09/14/17 16:59 08/16/17 08:08 Bisacodyl (Dulcolax) 10 mg DAILYPRN PRN RECTAL Constipation 08/15/17 22:27 09/14/17 22:26 Dextrose (Dextrose 50%) STAT PRN IV Hypoglycemia 08/15/17 22:27 09/14/17 22:26 Levofloxacin 100 ml @ 100 mls/hr Q24H IVPB 08/16/17 20:00 08/22/17 19:59 Lorazepam (Ativan 2mg/ml 1ml) 1 mg Q1H PRN IV For Seizures 08/15/17 22:15 08/22/17 21:14 Polyethylene Glycol (Miralax) 17 gm DAILY PRN ORAL Constipation 08/15/17 22:28 09/14/17 22:27 Promethazine HCl/ Codeine (Phenergan with Codeine) 5 ml Q4H PRN ORAL For Cough 08/15/17 22:29 09/14/17 22:28 08/16/17 11:10 Sodium Chloride 500 ml @ 999 mls/hr ONCE ONCE IVPB 08/16/17 12:15 08/16/17 12:45 UNV Tamsulosin HCl (Flomax) 0.4 mg QHS ORAL 08/16/17 21:00 09/15/17 08:59 Theophylline (Sky-Dur) 100 mg EVERY 12 HOURS ORAL 08/16/17 09:00 09/14/17 20:59 08/16/17 08:08 LORY JERNIGAN Aug 16, 2017 12:31
[2017-08-16] MEDS ORDERED: Ipratropium 0.02% Inh Soln 2.5ml UD HHN SCH (13:00)
[2017-08-16] MEDS ORDERED: Sodium Chloride 500ML 500 ML IV ONE (13:00)
[2017-08-16] MEDS ORDERED: Ipratropium 0.02% Inh Soln 2.5ml UD HHN PRN (13:30)
[2017-08-16 15:21] VITALS: BP 114/72
--- NOTE | 2017-08-16 17:47 | Cardiac Electrophysiology PN ---
Assessment/Plan Assessment/Plan 1. Presyncope. The patient did not have any arrhythmia. His BNP level is 581. Echocardiogram EF 60% . His EKG also showed normal sinus rhythm with poor R-wave progression. 2. Hypertension. We will hold off on antihypertensives 3. Chronic kidney disease. Creatinine 1.6. 5. Seizure like activity on the floor.Follow up Dr Christi THOMAS RN Subjective Subjective Comfortable in NAD. Objective Last 24 Hour Vital Signs Date Time Temp Pulse Resp B/P (MAP) Pulse Ox O2 Delivery O2 Flow Rate FiO2 08/16/17 15:21 98.1 83 20 114/72 98 Room Air 08/16/17 13:10 Room Air 08/16/17 13:08 87 18 96 Room Air 08/16/17 12:00 102 08/16/17 11:26 96.9 87 20 126/77 98 Room Air 08/16/17 08:03 96.6 76 20 107/65 97 Room Air 08/16/17 08:00 76 08/16/17 07:38 Room Air 08/16/17 07:36 Room Air 08/16/17 04:28 97.9 84 20 106/66 97 Room Air 08/16/17 04:00 79 08/16/17 01:07 Room Air 08/16/17 01:07 Room Air 08/16/17 00:00 83 08/16/17 00:00 98.0 98 20 130/77 98 Room Air 08/15/17 21:56 92 08/15/17 19:59 98.2 102 20 131/78 94 Room Air 08/15/17 19:37 107 18 100 Room Air 08/15/17 19:21 96 18 98 Room Air Intake and Output 08/16/17 08/17/17 19:00 07:00 Intake Total 560 ml Balance 560 ml Intake Oral 560 ml # Voids 2 Laboratory Tests Test 08/16/17 06:55 White Blood Count 8.1 K/UL (4.8-10.8) Red Blood Count 3.07 M/UL (4.70-6.10) L Hemoglobin 10.2 G/DL (14.2-18.0) L Hematocrit 29.4 % (42.0-52.0) L Mean Corpuscular Volume 96 FL (80-99) Mean Corpuscular Hemoglobin 33.2 PG (27.0-31.0) H Mean Corpuscular Hemoglobin Concent 34.6 G/DL (32.0-36.0) Red Cell Distribution Width 12.4 % (11.6-14.8) Platelet Count 158 K/UL (150-450) Mean Platelet Volume 7.1 FL (6.5-10.1) Neutrophils (%) (Auto) % (45.0-75.0) Lymphocytes (%) (Auto) % (20.0-45.0) Monocytes (%) (Auto) % (1.0-10.0) Eosinophils (%) (Auto) % (0.0-3.0) Basophils (%) (Auto) % (0.0-2.0) Differential Total Cells Counted 100 Neutrophils % (Manual) 60 % (45-75) Lymphocytes % (Manual) 22 % (20-45) Monocytes % (Manual) 18 % (1-10) H Eosinophils % (Manual) 0 % (0-3) Basophils % (Manual) 0 % (0-2) Band Neutrophils 0 % (0-8) Platelet Estimate Adequate Platelet Morphology Normal Sodium Level 130 mEQ/L (135-145) L Potassium Level 4.2 mEQ/L (3.4-4.9) Chloride Level 92 mEQ/L (98-107) L Carbon Dioxide Level 22 mEQ/L (20-30) Anion Gap 16 (5-15) H Blood Urea Nitrogen 10 mg/dL (7-23) Creatinine 1.3 mg/dL (0.7-1.2) H Estimat Glomerular Filtration Rate mL/min (>60) Glucose Level 121 mg/dL (74-106) H Hemoglobin A1c 6.7 % (< 6.0) H Uric Acid 7.8 mg/dL (3.0-7.5) H Calcium Level 8.6 mg/dL (8.6-10.2) Phosphorus Level 3.6 mg/dL (2.5-4.8) Magnesium Level 1.7 mg/dL (1.7-2.5) Iron Level 60 ug/dL (59-158) Total Iron Binding Capacity 237 ug/dL (250-400) L Percent Iron Saturation 25 % (15-50) Unsaturated Iron Binding 177 ug/dL (112-346) Ferritin 780 ng/mL (10-230) H Total Bilirubin 0.7 mg/dL (0.0-1.2) Gamma Glutamyl Transpeptidase 221 U/L (8-61) H Aspartate Amino Transf (AST/SGOT) 28 U/L (5-40) Alanine Aminotransferase (ALT/SGPT) 19 U/L (3-41) Alkaline Phosphatase 130 U/L (40-129) H Total Creatine Kinase 62 U/L (38-174) Troponin I < 0.30 ng/mL (<=0.30) C-Reactive Protein, Quantitative 6.5 mg/dL (< 0.5) H Pro-B-Type Natriuretic Peptide 208 pg/mL (0-125) H Total Protein 7.6 g/dL (6.6-8.7) Albumin 3.5 g/dL (3.5-5.2) Globulin 4.1 g/dL Albumin/Globulin Ratio 0.8 (1.0-2.7) L Vitamin B12 Level 1235 pg/mL (211-946) H Folate Pending Thyroid Stimulating Hormone (TSH) 3.490 uIU/mL (0.300-4.500) Free Thyroxine 1.32 ng/dL (0.86-1.85) Microbiology Date/Time Source Procedure Growth Status 08/15/17 15:30 Sputum Gram Stain - Final Resulted 08/15/17 15:30 Sputum Sputum Culture Pending Resulted Objective HEAD AND NECK: Shows no JVD. LUNGS: Coarse rhonchi bilaterally. CARDIOVASCULAR: Shows regular S1 and S2 with no gallop or murmur. ABDOMEN: Soft. EXTREMITIES: There is no pitting edema. VINITA HERNÁNDEZ Aug 16, 2017 17:47
--- NOTE | 2017-08-16 18:30 | Electroencephalogram ---
DATE OF PROCEDURE: 08/15/2017 PROCEDURE PERFORMED: Electroencephalography. READING PHYSICIAN: Sam Barraza M.D. REQUESTING PHYSICIAN: Kassandra Shelton M.D. Indication: The patient is a 72-year-old man with a history of single seizure episode. CURRENT TREATMENT: Norvasc and Tylenol. Technique: EEG was done using 18 electrodes placed scalp to scalp, scalp to ear montages according to 10/20 International System. During the recording, the patient was awake or drowsy, at times asleep, but normal mentality and fair cooperation. Most wakeful portions of recording consists of a low voltage, at times poorly defined slow-wave activities of 6 to 8 hertz bilaterally. Activation procedure included eye opening and eye closure. As recording progressed, there was disorganization of background corresponding to sleep stages. IMPRESSION: Mildly abnormal EEG in the presence of diffuse slowing. Comment: The above abnormality is a nonspecific finding, may reflect toxic or metabolic derangement. Absence of paroxysmal event on a single recording should not rule out seizure disorder. Sam Barraza M.D. DR: ARISTIDES JOB#: [id number] CC:
--- NOTE | 2017-08-16 18:31 | Infectious Diseases Prog Note ---
Assessment/Plan Problems: (1) Purulent bronchitis Assessment & Plan: continue levaquin, and bronchodilators, taper steroids (2) UTI (urinary tract infection) Assessment & Plan: await urine culture , continue levaquin (3) COPD (chronic obstructive pulmonary disease) Assessment & Plan: continue antibiotics, bronchodilators, monitor CXR Subjective Constitutional: Reports: no symptoms HEENT: Reports: no symptoms Respiratory: Reports: productive cough Breasts: Reports: no symptoms Cardiovascular: Reports: no symptoms Gastrointestinal/Abdominal: Reports: no symptoms Genitourinary: Reports: no symptoms Neurologic: Reports: no symptoms Psychiatric: Reports: no symptoms Skin: Reports: no symptoms Endocrine: Reports: no symptoms Allergies: Coded Allergies: No Known Allergies (Unverified , 12/09/12) Objective Vital Signs Last 24 Hour Vital Signs Date Time Temp Pulse Resp B/P (MAP) Pulse Ox O2 Delivery O2 Flow Rate FiO2 08/16/17 15:21 98.1 83 20 114/72 98 Room Air 08/16/17 13:10 Room Air 08/16/17 13:08 87 18 96 Room Air 08/16/17 12:00 102 08/16/17 11:26 96.9 87 20 126/77 98 Room Air 08/16/17 08:03 96.6 76 20 107/65 97 Room Air 08/16/17 08:00 76 08/16/17 07:38 Room Air 08/16/17 07:36 Room Air 08/16/17 04:28 97.9 84 20 106/66 97 Room Air 08/16/17 04:00 79 08/16/17 01:07 Room Air 08/16/17 01:07 Room Air 08/16/17 00:00 83 08/16/17 00:00 98.0 98 20 130/77 98 Room Air 08/15/17 21:56 92 08/15/17 19:59 98.2 102 20 131/78 94 Room Air 08/15/17 19:37 107 18 100 Room Air 08/15/17 19:21 96 18 98 Room Air Height (Feet): 6 Height (Inches): 1.00 Weight (Pounds): 175 General Appearance: WD/WN, no acute distress HEENT: normocephalic, atraumatic, mucous membranes moist, PERRL, EOMI, pharynx normal, supple, no JVD Respiratory/Chest: chest wall non-tender, no respiratory distress, no accessory muscle use, decreased breath sounds, expiratory wheezing Cardiovascular: normal peripheral pulses, normal rate, regular rhythm, no gallop/murmur, no JVD Abdomen: normal bowel sounds, soft, non tender, no organomegaly, non distended , no mass, no scars Extremities: no cyanosis, no clubbing Skin: no rash, no lesions, no ulcers Neurologic/Psychiatric: alert, oriented x 3 Microbiology Date/Time Source Procedure Growth Status 08/15/17 15:30 Sputum Gram Stain - Final Resulted 08/15/17 15:30 Sputum Sputum Culture Pending Resulted Laboratory Tests Test 08/16/17 06:55 White Blood Count 8.1 K/UL (4.8-10.8) Red Blood Count 3.07 M/UL (4.70-6.10) L Hemoglobin 10.2 G/DL (14.2-18.0) L Hematocrit 29.4 % (42.0-52.0) L Mean Corpuscular Volume 96 FL (80-99) Mean Corpuscular Hemoglobin 33.2 PG (27.0-31.0) H Mean Corpuscular Hemoglobin Concent 34.6 G/DL (32.0-36.0) Red Cell Distribution Width 12.4 % (11.6-14.8) Platelet Count 158 K/UL (150-450) Mean Platelet Volume 7.1 FL (6.5-10.1) Neutrophils (%) (Auto) % (45.0-75.0) Lymphocytes (%) (Auto) % (20.0-45.0) Monocytes (%) (Auto) % (1.0-10.0) Eosinophils (%) (Auto) % (0.0-3.0) Basophils (%) (Auto) % (0.0-2.0) Differential Total Cells Counted 100 Neutrophils % (Manual) 60 % (45-75) Lymphocytes % (Manual) 22 % (20-45) Monocytes % (Manual) 18 % (1-10) H Eosinophils % (Manual) 0 % (0-3) Basophils % (Manual) 0 % (0-2) Band Neutrophils 0 % (0-8) Platelet Estimate Adequate Platelet Morphology Normal Sodium Level 130 mEQ/L (135-145) L Potassium Level 4.2 mEQ/L (3.4-4.9) Chloride Level 92 mEQ/L (98-107) L Carbon Dioxide Level 22 mEQ/L (20-30) Anion Gap 16 (5-15) H Blood Urea Nitrogen 10 mg/dL (7-23) Creatinine 1.3 mg/dL (0.7-1.2) H Estimat Glomerular Filtration Rate mL/min (>60) Glucose Level 121 mg/dL (74-106) H Hemoglobin A1c 6.7 % (< 6.0) H Uric Acid 7.8 mg/dL (3.0-7.5) H Calcium Level 8.6 mg/dL (8.6-10.2) Phosphorus Level 3.6 mg/dL (2.5-4.8) Magnesium Level 1.7 mg/dL (1.7-2.5) Iron Level 60 ug/dL (59-158) Total Iron Binding Capacity 237 ug/dL (250-400) L Percent Iron Saturation 25 % (15-50) Unsaturated Iron Binding 177 ug/dL (112-346) Ferritin 780 ng/mL (10-230) H Total Bilirubin 0.7 mg/dL (0.0-1.2) Gamma Glutamyl Transpeptidase 221 U/L (8-61) H Aspartate Amino Transf (AST/SGOT) 28 U/L (5-40) Alanine Aminotransferase (ALT/SGPT) 19 U/L (3-41) Alkaline Phosphatase 130 U/L (40-129) H Total Creatine Kinase 62 U/L (38-174) Troponin I < 0.30 ng/mL (<=0.30) C-Reactive Protein, Quantitative 6.5 mg/dL (< 0.5) H Pro-B-Type Natriuretic Peptide 208 pg/mL (0-125) H Total Protein 7.6 g/dL (6.6-8.7) Albumin 3.5 g/dL (3.5-5.2) Globulin 4.1 g/dL Albumin/Globulin Ratio 0.8 (1.0-2.7) L Vitamin B12 Level 1235 pg/mL (211-946) H Folate Pending Thyroid Stimulating Hormone (TSH) 3.490 uIU/mL (0.300-4.500) Free Thyroxine 1.32 ng/dL (0.86-1.85) Current Medications Medications (Trade) Dose Ordered Sig/Bree Route PRN Reason Start Time Stop Time Status Last Admin Dose Admin Acetaminophen (Tylenol) 650 mg Q6H PRN ORAL Mild Pain/Temp > 100.5 08/15/17 23:00 09/13/17 16:59 Aspirin (Ecotrin) 81 mg DAILY ORAL 08/16/17 09:00 09/14/17 16:59 08/16/17 08:08 Bisacodyl (Dulcolax) 10 mg DAILYPRN PRN RECTAL Constipation 08/15/17 22:27 09/14/17 22:26 Dextrose (Dextrose 50%) STAT PRN IV Hypoglycemia 08/15/17 22:27 09/14/17 22:26 Ipratropium [place] (Atrovent) 500 mcg Q6H PRN HHN Shortness of Breath 08/16/17 13:30 08/21/17 13:29 Levofloxacin 100 ml @ 100 mls/hr Q24H IVPB 08/16/17 20:00 08/22/17 19:59 Lorazepam (Ativan 2mg/ml 1ml) 1 mg Q1H PRN IV For Seizures 08/15/17 22:15 08/22/17 21:14 Polyethylene Glycol (Miralax) 17 gm DAILY PRN ORAL Constipation 08/15/17 22:28 09/14/17 22:27 Promethazine HCl/ Codeine (Phenergan with Codeine) 5 ml Q4H PRN ORAL For Cough 08/15/17 22:29 09/14/17 22:28 08/16/17 15:30 Tamsulosin HCl (Flomax) 0.4 mg QHS ORAL 08/16/17 21:00 09/15/17 08:59 Theophylline (Sky-Dur) 100 mg EVERY 12 HOURS ORAL 08/16/17 09:00 09/14/17 20:59 08/16/17 08:08 Kristal Mendenhall M.D. Aug 16, 2017 18:31
--- NOTE | 2017-08-16 20:00 | Consultation ---
DATE OF CONSULTATION: 08/16/2017 NEUROLOGIC CONSULTATION CONSULTING PHYSICIAN: Sam Barraza M.D. REQUESTING PHYSICIAN: Kassandra Shelton M.D. History Of Present Illness: The patient is a 72-year-old man, seen in neurological consultation to evaluate the episode of generalized seizure episode. The patient was admitted to this hospital with generalized malaise, weakness, and productive cough. He was getting respiratory therapy yesterday while with his being at bedside when she noted that he started coughing, he suddenly became stiff, looked up, and body was shaking. This lasted about few seconds. The patient being unresponsive then upon awakening, was somewhat confused without recollection of events. Stat assessment was obtained. There was no neurological deficit noted. Diagnostic studies were obtained, this included electroencephalogram, which was normal with no seizure activities. Stat CT of the brain was obtained, this revealed a periventricular deep white matter ischemic changes, bilateral ethmoid sinus disease, old bilateral basal ganglia lacunar infarcts noted, but no evidence of acute intracranial abnormality, and no midline shift. Since yesterday, he has remained asymptomatic with no evidence of paroxysmal events. According to the patient and his about three weeks ago while being outside, he got up from sitting position, got very dizzy, "I felt like spinning," lost consciousness, and fell down for few seconds. He had no recollection of events, but there was no evidence of involuntary movement. No urine or bowel incontinence. The patient had a syncopal episode. There was no other events with the loss of consciousness reported. The patient's laboratory work now included mild anemia, hemoglobin 11.9 and hematocrit 36.0. Chemistry panel with creatinine 1.6, blood sugar 154, and BNP 581. Normal B12 and TSH. Elevated CRP at 6.5. Elevated hemoglobin A1c of 6.7 and . Past Medical History: The patient has a history of chronic obstructive pulmonary disease, history of recent syncope, and bronchitis. He has a chronic kidney failure and hypertension. Social History: The patient lives at home. He is a smoker. Denies alcohol or drug abuse. FAMILY HISTORY: Noncontributory. Review Of Symptoms: The patient indicated that currently he is feeling fairly well. He has no headache. No dizziness. No unilateral weakness, numbness, or tingling. No chest pain. No palpitations, but has some mild respiratory difficulties and still dry cough. No urine or bowel incontinence. PHYSICAL EXAMINATION: General: A well-developed and well-nourished man, not in acute distress. His at bedside. Vital Signs: His vital signs now are stable with blood pressure 136/77 and temperature 96.9 degrees. HEENT: Head, normocephalic. There is no evidence of trauma. Eyes, ears, and throat are clear. NECK: Supple. No meningeal signs. Musculoskeletal Examination: Unremarkable. There is no deformities. Peripheral pulses 1+ and symmetric. Mental Status: Alert and oriented x3. No evidence of aphasia. No apraxia. Cognitive function normal. Cranial Nerve II: Pupils both responding to light and accommodation. Extraocular movement intact. No nystagmus. CRANIAL NERVE V: Normal corneal responses. CRANIAL NERVE VII: No facial asymmetry. CRANIAL NERVE VIII: Normal hearing. CRANIAL NERVES IX THROUGH XII: Within normal limits. Motor Examination: Normal muscle tone and strength 5/5 in all extremities. No involuntary movement. Deep tendon reflexes 1+ and symmetric with downgoing toes on both sides. Sensory Exam: Normal to pinprick and light touch. Gait reported stable. IMPRESSION: 1. History of single generalized seizure episode in the setting of chronic obstructive pulmonary disease and cough. 2. History of syncopal episode. 3. Hypertension. 4. Chronic renal insufficiency. 5. Ischemic cerebrovascular disease. 6. Old lacunar strokes. Recommendations: The patient had a single episode in the setting of respiratory abnormalities and metabolic derangement. This probably is asymptomatic event and does not represent chronic seizure activities. Still, his and the patient advised to observe for any further paroxysmal events at which point, the patient will need a preventive treatment with anticonvulsants. Advised not to drive for the following three months while under observation. Thank you for allowing me to see this interesting patient in neurological consultation. Sam Barraza M.D. DR: ARISTIDES JOB#: [id number] CC:
[2017-08-16 20:22] VITALS: BP 122/72
--- NOTE | 2017-08-16 20:38 | General Progress Note ---
Assessment/Plan Problem List: (1) UTI (urinary tract infection) ICD Codes: N39.0 - Urinary tract infection, site not specified SNOMED: 45246806 (2) Sepsis ICD Codes: A41.9 - Sepsis, unspecified organism SNOMED: 03967739 (3) Dehydration ICD Codes: E86.0 - Dehydration SNOMED: 46607819 (4) Syncope ICD Codes: R55 - Syncope and collapse SNOMED: 447810775 Status: progressing Assessment/Plan afebrile abx per id no sz clinically improving uti improving Subjective ROS Limited/Unobtainable: Yes Constitutional: Reports: no symptoms Allergies: Coded Allergies: No Known Allergies (Unverified , 12/09/12) Objective Last 24 Hour Vital Signs Date Time Temp Pulse Resp B/P (MAP) Pulse Ox O2 Delivery O2 Flow Rate FiO2 08/16/17 20:22 97.9 94 20 122/72 97 Room Air 08/16/17 16:00 86 08/16/17 15:21 98.1 83 20 114/72 98 Room Air 08/16/17 13:10 Room Air 08/16/17 13:08 87 18 96 Room Air 08/16/17 12:00 102 08/16/17 11:26 96.9 87 20 126/77 98 Room Air 08/16/17 08:03 96.6 76 20 107/65 97 Room Air 08/16/17 08:00 76 08/16/17 07:38 Room Air 08/16/17 07:36 Room Air 08/16/17 04:28 97.9 84 20 106/66 97 Room Air 08/16/17 04:00 79 08/16/17 01:07 Room Air 08/16/17 01:07 Room Air 08/16/17 00:00 83 08/16/17 00:00 98.0 98 20 130/77 98 Room Air 08/15/17 21:56 92 Intake and Output 08/16/17 08/17/17 19:00 07:00 Intake Total 800 ml Balance 800 ml Intake Oral 800 ml # Voids 3 Laboratory Tests 08/16/17 06:55: White Blood Count 8.1, Red Blood Count 3.07L, Hemoglobin 10.2L, Hematocrit 29.4L , Mean Corpuscular Volume 96, Mean Corpuscular Hemoglobin 33.2H, Mean Corpuscular Hemoglobin Concent 34.6, Red Cell Distribution Width 12.4, Platelet Count 158, Mean Platelet Volume 7.1, Neutrophils (%) (Auto) , Lymphocytes (%) ( Auto) , Monocytes (%) (Auto) , Eosinophils (%) (Auto) , Basophils (%) (Auto) , Differential Total Cells Counted 100, Neutrophils % (Manual) 60, Lymphocytes % ( Manual) 22, Monocytes % (Manual) 18H, Eosinophils % (Manual) 0, Basophils % ( Manual) 0, Band Neutrophils 0, Platelet Estimate Adequate, Platelet Morphology Normal, Sodium Level 130L, Potassium Level 4.2, Chloride Level 92L, Carbon Dioxide Level 22, Anion Gap 16H, Blood Urea Nitrogen 10, Creatinine 1.3H, Estimat Glomerular Filtration Rate , Glucose Level 121H, Hemoglobin A1c 6.7H, Uric Acid 7.8H, Calcium Level 8.6, Phosphorus Level 3.6, Magnesium Level 1.7, Iron Level 60, Total Iron Binding Capacity 237L, Percent Iron Saturation 25, Unsaturated Iron Binding 177, Ferritin 780H, Total Bilirubin 0.7, Gamma Glutamyl Transpeptidase 221H, Aspartate Amino Transf (AST/SGOT) 28, Alanine Aminotransferase (ALT/SGPT) 19, Alkaline Phosphatase 130H, Total Creatine Kinase 62, Troponin I < 0.30, C-Reactive Protein, Quantitative 6.5H, Pro-B-Type Natriuretic Peptide 208H, Total Protein 7.6, Albumin 3.5, Globulin 4.1, Albumin/ Globulin Ratio 0.8L, Vitamin B12 Level 1235H, Folate [Pending], Thyroid Stimulating Hormone (TSH) 3.490, Free Thyroxine 1.32 Height (Feet): 6 Height (Inches): 1.00 Weight (Pounds): 175 Neck: supple Cardiovascular: normal rate Respiratory/Chest: lungs clear Kassandra Shelton MD Aug 16, 2017 20:38
--- NOTE | 2017-08-16 20:57 | General Progress Note ---
Assessment/Plan Assessment/Plan ASSESSMENT AND PLAN: 1. Anemia, secondary to chronic disease. The patient has an elevated ferritin level and decreased TIBC. --> continue to watch counts 2. Urinary tract infection, currently is on antibiotics per Infectious Disease service. 3. Chronic obstructive pulmonary disease. Pulmonary is on board. He is on antibiotics as well. Chest x-ray reviewed. 4. Purulent bronchitis, currently on Levaquin and bronchodilators. 5. Acute kidney injury. Seen by Nephrology. 6. Hypertension. . Subjective Allergies: Coded Allergies: No Known Allergies (Unverified , 12/09/12) Objective Last 24 Hour Vital Signs Date Time Temp Pulse Resp B/P (MAP) Pulse Ox O2 Delivery O2 Flow Rate FiO2 08/16/17 20:22 97.9 94 20 122/72 97 Room Air 08/16/17 16:00 86 08/16/17 15:21 98.1 83 20 114/72 98 Room Air 08/16/17 13:10 Room Air 08/16/17 13:08 87 18 96 Room Air 08/16/17 12:00 102 08/16/17 11:26 96.9 87 20 126/77 98 Room Air 08/16/17 08:03 96.6 76 20 107/65 97 Room Air 08/16/17 08:00 76 08/16/17 07:38 Room Air 08/16/17 07:36 Room Air 08/16/17 04:28 97.9 84 20 106/66 97 Room Air 08/16/17 04:00 79 08/16/17 01:07 Room Air 08/16/17 01:07 Room Air 08/16/17 00:00 83 08/16/17 00:00 98.0 98 20 130/77 98 Room Air 08/15/17 21:56 92 Intake and Output 08/16/17 08/17/17 19:00 07:00 Intake Total 800 ml 240 ml Balance 800 ml 240 ml Intake Oral 800 ml 240 ml # Voids 3 1 Laboratory Tests 08/16/17 06:55: White Blood Count 8.1, Red Blood Count 3.07L, Hemoglobin 10.2L, Hematocrit 29.4L , Mean Corpuscular Volume 96, Mean Corpuscular Hemoglobin 33.2H, Mean Corpuscular Hemoglobin Concent 34.6, Red Cell Distribution Width 12.4, Platelet Count 158, Mean Platelet Volume 7.1, Neutrophils (%) (Auto) , Lymphocytes (%) ( Auto) , Monocytes (%) (Auto) , Eosinophils (%) (Auto) , Basophils (%) (Auto) , Differential Total Cells Counted 100, Neutrophils % (Manual) 60, Lymphocytes % ( Manual) 22, Monocytes % (Manual) 18H, Eosinophils % (Manual) 0, Basophils % ( Manual) 0, Band Neutrophils 0, Platelet Estimate Adequate, Platelet Morphology Normal, Sodium Level 130L, Potassium Level 4.2, Chloride Level 92L, Carbon Dioxide Level 22, Anion Gap 16H, Blood Urea Nitrogen 10, Creatinine 1.3H, Estimat Glomerular Filtration Rate , Glucose Level 121H, Hemoglobin A1c 6.7H, Uric Acid 7.8H, Calcium Level 8.6, Phosphorus Level 3.6, Magnesium Level 1.7, Iron Level 60, Total Iron Binding Capacity 237L, Percent Iron Saturation 25, Unsaturated Iron Binding 177, Ferritin 780H, Total Bilirubin 0.7, Gamma Glutamyl Transpeptidase 221H, Aspartate Amino Transf (AST/SGOT) 28, Alanine Aminotransferase (ALT/SGPT) 19, Alkaline Phosphatase 130H, Total Creatine Kinase 62, Troponin I < 0.30, C-Reactive Protein, Quantitative 6.5H, Pro-B-Type Natriuretic Peptide 208H, Total Protein 7.6, Albumin 3.5, Globulin 4.1, Albumin/ Globulin Ratio 0.8L, Vitamin B12 Level 1235H, Folate [Pending], Thyroid Stimulating Hormone (TSH) 3.490, Free Thyroxine 1.32 Height (Feet): 6 Height (Inches): 1.00 Weight (Pounds): 175 Luis Frausto Aug 16, 2017 20:57
[2017-08-17 00:02] VITALS: BP 106/67
[2017-08-17] MEDS: Promethazine/Codeine 5ml UD ORAL PRN ×3 (03:43→15:06)
[2017-08-17 03:50] VITALS: BP 103/67
[2017-08-17 08:00] VITALS: BP 111/65
[2017-08-17] MEDS: Theophylline ER 100mg ORAL SCH (09:44)
[2017-08-17] MEDS: Aspirin EC 81mg tab ORAL SCH (09:44)
[2017-08-17 12:00] VITALS: BP_SYST 120; BP_SYST 65; BP_DIAS 65
--- NOTE | 2017-08-17 12:12 | Diagnostic Imaging Report ---
APPROVED REPORT CPT Code: 24020 Present Symptoms Comments: Weakness BILATERAL: Imaging reveals a patent deep venous system bilaterally. There is no evidence of thrombus within the femoral, popliteal or tibial segments. The greater saphenous veins are also within normal limits. Doppler indicates normal spontaneous flow within these segments.
--- NOTE | 2017-08-17 12:15 | General Progress Note ---
Assessment/Plan Status: stable Assessment/Plan Renal failure, likely acute( dehydration and Low BP) Anemia h/o HTN presents with Syncope Plan: Stable from renal stand ? DC planning?? Subjective ROS Limited/Unobtainable: No Allergies: Coded Allergies: No Known Allergies (Unverified , 12/09/12) Objective Last 24 Hour Vital Signs Date Time Temp Pulse Resp B/P (MAP) Pulse Ox O2 Delivery O2 Flow Rate FiO2 08/17/17 08:00 97.5 73 21 111/65 95 Room Air 08/17/17 04:00 75 08/17/17 03:50 97.5 89 20 103/67 97 Room Air 08/17/17 00:02 97.0 77 20 106/67 96 Room Air 08/17/17 00:00 74 08/16/17 20:22 97.9 94 20 122/72 97 Room Air 08/16/17 20:00 84 08/16/17 16:00 86 08/16/17 15:21 98.1 83 20 114/72 98 Room Air 08/16/17 13:10 Room Air 08/16/17 13:08 87 18 96 Room Air Intake and Output 08/17/17 08/18/17 19:00 07:00 Intake Total 260 ml Balance 260 ml Intake Oral 260 ml Height (Feet): 6 Height (Inches): 1.00 Weight (Pounds): 175 General Appearance: no apparent distress Objective PE not changed SHANNON CLINE Aug 17, 2017 12:15
--- NOTE | 2017-08-17 12:22 | Pulmonology Progress Note ---
Assessment/Plan Problems: (1) Purulent bronchitis (2) COPD (chronic obstructive pulmonary disease) (3) Uncontrolled seizures (4) Syncope Assessment/Plan improving respiratory treatment continue respiratory treatment check sputum cultures pb controlled echo reviewed pt wants to go home Subjective ROS Limited/Unobtainable: No Constitutional: Reports: no symptoms Respiratory: Reports: no symptoms Allergies: Coded Allergies: No Known Allergies (Unverified , 12/09/12) Objective Last 24 Hour Vital Signs Date Time Temp Pulse Resp B/P (MAP) Pulse Ox O2 Delivery O2 Flow Rate FiO2 08/17/17 08:00 73 08/17/17 08:00 97.5 73 21 111/65 95 Room Air 08/17/17 04:00 75 08/17/17 03:50 97.5 89 20 103/67 97 Room Air 08/17/17 00:02 97.0 77 20 106/67 96 Room Air 08/17/17 00:00 74 08/16/17 20:22 97.9 94 20 122/72 97 Room Air 08/16/17 20:00 84 08/16/17 16:00 86 08/16/17 15:21 98.1 83 20 114/72 98 Room Air 08/16/17 13:10 Room Air 08/16/17 13:08 87 18 96 Room Air Intake and Output 08/17/17 08/18/17 19:00 07:00 Intake Total 260 ml Balance 260 ml Intake Oral 260 ml General Appearance: WD/WN HEENT: normocephalic, anicteric Respiratory/Chest: chest wall non-tender, lungs clear Cardiovascular: normal peripheral pulses, normal rate Abdomen: normal bowel sounds, soft, non tender Genitourinary: normal external genitalia Extremities: no clubbing Skin: no rash Microbiology Date/Time Source Procedure Growth Status 08/15/17 15:30 Sputum Gram Stain - Final Complete 08/15/17 15:30 Sputum Sputum Culture - Final NORMAL UPPER RESPIRATORY WILLIAMS PRESENT Complete 08/15/17 18:53 Urine,Clean Catch Urine Culture - Preliminary NO GROWTH AFTER 24 HOURS Resulted Current Medications Medications (Trade) Dose Ordered Sig/Bree Route PRN Reason Start Time Stop Time Status Last Admin Dose Admin Acetaminophen (Tylenol) 650 mg Q6H PRN ORAL Mild Pain/Temp > 100.5 08/15/17 23:00 09/13/17 16:59 Aspirin (Ecotrin) 81 mg DAILY ORAL 08/16/17 09:00 09/14/17 16:59 08/17/17 09:44 Bisacodyl (Dulcolax) 10 mg DAILYPRN PRN RECTAL Constipation 08/15/17 22:27 09/14/17 22:26 Dextrose (Dextrose 50%) STAT PRN IV Hypoglycemia 08/15/17 22:27 09/14/17 22:26 Ipratropium Merrill (Atrovent) 500 mcg Q6H PRN HHN Shortness of Breath 08/16/17 13:30 08/21/17 13:29 Levofloxacin 100 ml @ 100 mls/hr Q24H IVPB 08/16/17 20:00 08/22/17 19:59 08/16/17 19:30 Lorazepam (Ativan 2mg/ml 1ml) 1 mg Q1H PRN IV For Seizures 08/15/17 22:15 08/22/17 21:14 Polyethylene Glycol (Miralax) 17 gm DAILY PRN ORAL Constipation 08/15/17 22:28 09/14/17 22:27 Promethazine HCl/ Codeine (Phenergan with Codeine) 5 ml Q4H PRN ORAL For Cough 08/15/17 22:29 09/14/17 22:28 08/17/17 10:38 Tamsulosin HCl (Flomax) 0.4 mg QHS ORAL 08/16/17 21:00 09/15/17 08:59 08/16/17 21:49 Theophylline (Sky-Dur) 100 mg EVERY 12 HOURS ORAL 08/16/17 09:00 09/14/17 20:59 08/17/17 09:44 LORY JERNIGAN Aug 17, 2017 12:22
--- NOTE | 2017-08-17 15:25 | Cardiology Report ---
APPROVED REPORT EKG Measurement Heart [id number] Normal sinus rhythm Anteroseptal infarct, age undetermined Abnormal ECG
--- NOTE | 2017-08-17 15:25 | General Progress Note ---
Assessment/Plan Problem List: (1) UTI (urinary tract infection) ICD Codes: N39.0 - Urinary tract infection, site not specified SNOMED: 79087029 (2) Sepsis ICD Codes: A41.9 - Sepsis, unspecified organism SNOMED: 61108210 (3) Dehydration ICD Codes: E86.0 - Dehydration SNOMED: 15072718 (4) Syncope ICD Codes: R55 - Syncope and collapse SNOMED: 947320293 Status: progressing Assessment/Plan reviewed chart and labs clinically improving uti improving Subjective Constitutional: Reports: no symptoms Allergies: Coded Allergies: No Known Allergies (Unverified , 12/09/12) Objective Last 24 Hour Vital Signs Date Time Temp Pulse Resp B/P (MAP) Pulse Ox O2 Delivery O2 Flow Rate FiO2 08/17/17 12:00 97.8 75 20 120/65 93 Room Air 08/17/17 08:00 73 08/17/17 08:00 97.5 73 21 111/65 95 Room Air 08/17/17 04:00 75 08/17/17 03:50 97.5 89 20 103/67 97 Room Air 08/17/17 00:02 97.0 77 20 106/67 96 Room Air 08/17/17 00:00 74 08/16/17 20:22 97.9 94 20 122/72 97 Room Air 08/16/17 20:00 84 08/16/17 16:00 86 Intake and Output 08/17/17 08/18/17 19:00 07:00 Intake Total 260 ml Balance 260 ml Intake Oral 260 ml Height (Feet): 6 Height (Inches): 1.00 Weight (Pounds): 175 Respiratory/Chest: lungs clear Abdomen: soft Kassandra Shelton MD Aug 17, 2017 15:25
--- NOTE | 2017-08-17 15:38 | Cardiac Electrophysiology PN ---
Assessment/Plan Assessment/Plan 1. Presyncope. The patient did not have any arrhythmia. His BNP level is 581. Echocardiogram EF 60% . His EKG also showed normal sinus rhythm with poor R-wave progression. 2. Hypertension. We will hold off on antihypertensives 3. Chronic kidney disease. Creatinine 1.6. 5. Seizure like activity on the floor.Follow up Dr Christi THOMAS RN and OK to DC from cardiac perspective Subjective Subjective Comfortable in NAD. at bedside. Wants to go home. Objective Last 24 Hour Vital Signs Date Time Temp Pulse Resp B/P (MAP) Pulse Ox O2 Delivery O2 Flow Rate FiO2 08/17/17 12:00 97.8 75 20 120/65 93 Room Air 08/17/17 08:00 73 08/17/17 08:00 97.5 73 21 111/65 95 Room Air 08/17/17 04:00 75 08/17/17 03:50 97.5 89 20 103/67 97 Room Air 08/17/17 00:02 97.0 77 20 106/67 96 Room Air 08/17/17 00:00 74 08/16/17 20:22 97.9 94 20 122/72 97 Room Air 08/16/17 20:00 84 08/16/17 16:00 86 Intake and Output 08/17/17 08/18/17 19:00 07:00 Intake Total 260 ml Balance 260 ml Intake Oral 260 ml Microbiology Date/Time Source Procedure Growth Status 08/15/17 15:30 Sputum Gram Stain - Final Complete 08/15/17 15:30 Sputum Sputum Culture - Final NORMAL UPPER RESPIRATORY WILLIAMS PRESENT Complete 08/15/17 18:53 Urine,Clean Catch Urine Culture - Preliminary NO GROWTH AFTER 24 HOURS Resulted Objective HEAD AND NECK: No JVD. LUNGS: Coarse rhonchi bilaterally. CARDIOVASCULAR: Regular S1 and S2 with no gallop or murmur. ABDOMEN: Soft. EXTREMITIES: There is no pitting edema. VINITA HERNÁNDEZ Aug 17, 2017 15:38
[2017-08-17 16:00] VITALS: BP 137/82
[2017-08-17] MEDS ORDERED: NS 275ml ONE (16:39)
[2017-08-17] MEDS ORDERED: Tubing IV Secondary IV ONE (16:39)
[2017-08-17] MEDS ORDERED: 1/2 NS 1000ml IV ONE (16:39)
--- NOTE | 2017-08-17 19:30 | General Progress Note ---
Assessment/Plan Assessment/Plan ASSESSMENT AND PLAN: 1. Anemia, secondary to chronic disease. The patient has an elevated ferritin level and decreased TIBC. --> continue to watch counts, stable currently 2. Urinary tract infection, currently is on antibiotics per Infectious Disease service. 3. Chronic obstructive pulmonary disease. Pulmonary is on board. He is on antibiotics as well. Chest x-ray reviewed. 4. Purulent bronchitis, currently on Levaquin and bronchodilators. 5. Acute kidney injury. Seen by Nephrology. 6. Hypertension. . Subjective Constitutional: Reports: no symptoms HEENT: Reports: no symptoms Cardiovascular: Reports: no symptoms Respiratory: Reports: no symptoms Gastrointestinal/Abdominal: Reports: no symptoms Genitourinary: Reports: no symptoms Neurologic/Psychiatric: Reports: no symptoms Endocrine: Reports: no symptoms Hematologic/Lymphatic: Reports: no symptoms Allergies: Coded Allergies: No Known Allergies (Unverified , 12/09/12) Subjective NAD Objective Last 24 Hour Vital Signs Date Time Temp Pulse Resp B/P (MAP) Pulse Ox O2 Delivery O2 Flow Rate FiO2 08/17/17 16:00 97.0 71 20 137/82 95 Room Air 08/17/17 12:00 107 08/17/17 12:00 97.8 75 20 120/65 93 Room Air 08/17/17 08:00 73 08/17/17 08:00 97.5 73 21 111/65 95 Room Air 08/17/17 04:00 75 08/17/17 03:50 97.5 89 20 103/67 97 Room Air 08/17/17 00:02 97.0 77 20 106/67 96 Room Air 08/17/17 00:00 74 08/16/17 20:22 97.9 94 20 122/72 97 Room Air 08/16/17 20:00 84 Intake and Output 08/17/17 08/18/17 19:00 07:00 Intake Total 260 ml Balance 260 ml Intake Oral 260 ml Height (Feet): 6 Height (Inches): 1.00 Weight (Pounds): 175 General Appearance: no apparent distress EENT: normal ENT inspection Neck: normal alignment, supple Cardiovascular: regular rhythm Abdomen: non tender Extremities: non-tender Skin: warm/dry Luis Frausto Aug 17, 2017 19:30
--- NOTE | 2017-08-18 10:36 | Cardiology Report ---
APPROVED REPORT EXAM: Two-dimensional and M-mode echocardiogram with Doppler and color Doppler. INDICATION Congestive Heart Failure M-Mode DIMENSIONS IVSd1.0 (0.7-1.1cm)Left Atrium (MM)3.8 (1.6-4.0cm) LVDd3.5 (3.5-5.6cm)Aortic Root3.1 (2.0-3.7cm) PWd0.8 (0.7-1.1cm)Aortic Cusp Exc.1.7 (1.5-2.0cm) LVDs2.6 (2.5-4.0cm) PWs1.1 cm Normal left ventricular chamber size, systolic function and wall motion. Left ventricular ejection fraction estimated to be 60-65%. No evidence of left ventricular hypertrophy. No evidence of pericardial or pleural effusion. Mild left atrial enlargement by 2D. Right cardiac chamber sizes are within normal limits. Focal aortic valve sclerosis with adequate cusp excursion. Normal mitral valve leaflets with normal excursion. Normal mitral annulus and aortic root calcification. Pulmonic valve not well visualized. Normal tricuspid valve structure. IVC is normal in size and collapsible with respiration. A color flow and spectral Doppler study was performed and revealed: No aortic regurgitation. No mitral regurgitation. Mitral diastolic velocities suggest reduced left ventricular relaxation c/w diastolic dysfunction grade 1. No tricuspid regurgitation.
--- NOTE | 2017-08-20 10:23 | Discharge Summary ---
Discharge Summary Hospital Course Date of Admission Aug 14, 2017 at 19:19 Date of Discharge Aug 17, 2017 at 16:40 Admitting Diagnosis syncope, dehydration HPI Arsalan Finley NarcisoSr is a 72 year old male who was admitted on Aug 14, 2017 at 19: 19 for Syncope, Dehydration Hospital Course dc summary #[id number] Discharge Medications Continued Medications: Amlodipine Besylate (Norvasc) 10 Mg Tab 10 MG PO DAILY, #10 TAB Aspirin* (Aspir-Low*) 81 Mg Tablet.dr 81 MG PO DAILY Hydrocodone Bit/Acetaminophen 5-325* ([place] 5-325*) 1 Each Tablet 1 TAB ORAL Q6H PRN for For Pain, #20 TAB Ibuprofen* (Motrin*) 600 Mg Tablet 600 MG ORAL THREE TIMES A DAY, #20 TAB Losartan/Hydrochlorothiazide (Losartan-Hctz 100-12.5 Mg Tab) 1 Each Tablet 1 TAB PO DAILY Ondansetron (Zofran) 4 Mg Tab 4 MG PO Q8H, #10 TAB Tamsulosin Hcl (Tamsulosin Hcl*) 0.4 Mg Cap.er.24h 0.4 MG ORAL DAILY, CAP Discharge Condition Upon Discharge: stable Discharge Disposition Patient was discharged to Home (01) Discharge Diagnoses: Discharge Instructions Discharge Instructions Special Instructions I have been assigned to complete a D/C Summary on this account. I was not involved in the patient management Migdalia Hliario NP ([place]) Aug 20, 2017 10:23
--- NOTE | 2017-08-21 01:15 | Discharge Summary 2 SIG ---
DATE OF ADMISSION: 08/14/2017 DATE OF DISCHARGE: 08/17/2017 Reason For Admission: 72-year-old male with history of old CVA and hypertension, presented to emergency room with complaint of cough, yellowish phlegm for few days. He had a syncopal episode few weeks ago that was treated. After that he traveled to [place] and he felt good until this time when he developed a cough and a phlegm. He reported history of smoking about 1/2 pack a day for years. Chest x-ray revealed no acute cardiopulmonary pathology. The patient was afebrile. Creatinine - 1.6. Blood pressure was on the low side. Patient was admitted for further management. ADMITTING DIAGNOSES: 1. Purulent bronchitis. 2. Chronic obstructive pulmonary disease. 3. History of syncopal episode. 4. Hypotension. 5. Acute kidney injury. Hospital Course: The patient was admitted. Pulmonology, Infectious Disease, Cardiology, Nephrology, and Hematology consults were requested. Supplemental oxygen was provided to keep saturation above 92%. Pulmonary toilet provided on as needed basis. The patient was started on theophylline. Antitussive were provided as needed. Incentive spirometer was on the bedside. The patient was taught and encouraged to use while in the bed. Sputum culture was negative. The patient was on empiric antibiotic as per ID management. Urine culture was negative. The patient off antibiotic prior to discharge. The patient counseled on smoking cessation. Consult for Neurology was called because while being in the hospital , the patient had an episode, resembling seizure. While the was at the bedside, she noted that he started to cough, became stiff, looked up, and his body was shaken. It lasted about few seconds. The patient initially was unresponsive and then upon awakening was somewhat confused without recollection of the event. Subsequently, Neurology consult was obtained. Per neurologist, the patient had a single generalized seizure episode in the setting of chronic obstructive pulmonary disease and cough likely due to the respiratory abnormalities and metabolic derangement. Per Neurology, this was asymptomatic event and did not represent any chronic seizure activity. He suggested to and the patient to observe for any further paroxysmal events and should they occur, then the patient will need a preventive treatment with anticonvulsant. At this time, no anticonvulsants were ordered. EEG revealed mild abnormality. The patient was advised not to drive for 3 months while under observation. EEG showed mildly abnormal EEG in the presence of diffuse slowing, likely related to history of ischemic cardiovascular disease and old lacunar stroke. CT of the head revealed no acute cardiopulmonary pathology, but showed extensive chronic and age related changes. Donation Specialist followed the patient. Per janitor cleaner, the patient had no evidence of any arrhythmia. Pro BNP - 581. Echocardiogram revealed preserved ejection fraction. The patient was in normal sinus rhythm. Initially, antihypertensive medications were on hold since the patient was hypotensive . The patient was given IV fluids. Acute kidney injury was likely secondary to dehydration and hypotension. Insurance Account Manager closely followed. After intravenous fluids, creatinine down to 1.3. The patient likely had acute kidney injury on chronic kidney disease. Antihypertensive medication resumed as blood pressure normalized. School Cook followed. Hemoglobin and hematocrit remained at the baseline. Anemia workup revealed stable iron, stable B12 and folate level. School Cook recommended monitor counts. The patient was stable for discharge. FINAL DIAGNOSES: 1. Purulent bronchitis. 2. Chronic obstructive pulmonary disease. 3. Single generalized seizure episode. 4. History of syncopal episode. 5. Dehydration. 6. Hypertension (initial hypotension). 7. Acute on chronic kidney disease. 8. Ischemic cerebrovascular disease. 9. Old lacunar stroke. 10. Anemia of chronic disease. DISCHARGE MEDICATIONS: See medication reconciliation list. Discharge Instructions: The patient was discharged to home and follow up with the primary medical doctor. Kassandra Shelton M.D. I have been assigned to dictate discharge summary on this account and I was not involved in the patient's management. Migdalia Saavedradixon N.PAngeli DR: JELANI JOB#: [id number] CC: TRACY
--- NOTE | 2017-08-25 02:45 | Consultation ---
DATE OF CONSULTATION: 08/15/2017 NOTE: PREVIOUS INCOMPLETE DICTATION HAS BEEN MERGED WITH THIS DICTATION PER PHYSICIAN REQUEST INFECTIOUS DISEASES CONSULTATION CONSULTING PHYSICIAN: Kristal Mendenhall M.D. REQUESTING PHYSICIAN: Kassandra Shelton M.D. Reason For Consultation: Bronchitis and urine infection, recommendation for antibiotics therapy. History Of Present Illness: The patient is a 72-year-old male with past medical history of coronary artery disease and hypertension, presented to the hospital at [facility] with dizziness and lightheadedness with presyncopal episodes. Symptoms started two and a half weeks ago. Since he traveled to [place] and came back, he developed congestion and cough productive of yellowish phlegm. Denied any fever or chills. Denied any sick contacts. No shortness of breath. No chest pain. The patient had a chest x-ray in the emergency room, it did not show any acute infiltration. Urinalysis showed evidence of urine infection. The patient was given Zosyn in the emergency room and I was consulted by the primary provider for antibiotics treatment and further management. Past Medical History: Significant for coronary artery disease and hypertension. PAST SURGICAL HISTORY: Negative. ALLERGIES: No known drug allergy. MEDICATIONS: Please refer to the medical record. Social History: The patient lives with family. Denied using any drugs, tobacco, or alcohol. FAMILY HISTORY: Unable to obtain at this point. Review Of Systems: A 14-point of system reviewed were all negative apart from the one I mentioned above in my History and Physical. PHYSICAL EXAMINATION: Vital Signs: Temperature 98.2, pulse 102, respirations 20, blood pressure 131/78, and saturation 94% on room air. General: A middle-aged male, up in bed, awake, alert, not in distress. HEENT: Normocephalic, atraumatic. Pupils reactive to light. Moist oral mucosa. No exudate. NECK: Supple. No lymphadenopathy. CARDIOVASCULAR: Regular rate and rhythm. No murmur or gallop. Lungs: He had wheezing with diminished breathing sounds at the bases. Normal breathing efforts. Abdomen: Soft, nontender, and nondistended. Positive bowel sounds. No hepatosplenomegaly. No ascites. EXTREMITIES: No edema or cyanosis. SKIN: No rash or hives. Laboratory and diagnostic Data: White count 9.2, hemoglobin 11.9, and platelet count 181,000. BUN of 10, creatinine 1.3. Hemoglobin A1c 6.7. C-reactive protein 6.5. Urinalysis showed +1 leukocyte esterase, 5 to 10 red blood cells, and WBC 0 to 2. Imaging, chest x-ray showed no acute finding. ASSESSMENT AND RECOMMENDATION: 1. Purulent bronchitis. We will start the patient on Levaquin empiric treatment. Continue bronchodilator and taper steroid as needed. 2. Urinary tract infection. We will send urine culture and start Levaquin empiric treatment. 3. Chronic obstructive pulmonary disease with acute exacerbation. Continue antibiotics, bronchodilator, and oxygen. Monitor chest x-ray. Pulmonary is following. Thank you for the consult. Infectious Disease will continue to follow. Kristal Mendenhall M.D. DR: CORA JOB#: [id number] CC:
== END 2017-08-17 16:40 | disposition home or self-care (01) | DRG 191 ==
LOC: EMR 14:25 → 2E 19:19 → EDBEDREQ 19:30 → 4E 08-15 15:46 → 2E 08-15 22:02
PROC: 4A00X4Z Measurement of Central Nervous Electrical Activity, External Approach (ICD-10-PCS; principal; 2017-08-16)
DX: J44.1 Chronic obstructive pulmonary disease with (acute) exacerbation (principal); N17.9 Acute kidney failure, unspecified; R56.9 Unspecified convulsions; N39.0 Urinary tract infection, site not specified; E86.0 Dehydration; D63.8 Anemia in other chronic diseases classified elsewhere; I12.9 Hypertensive chronic kidney disease with stage 1 through stage 4 chronic kidney disease, or unspecified chronic kidney disease; N18.9 Chronic kidney disease, unspecified; F17.210 Nicotine dependence, cigarettes, uncomplicated; I25.10 Atherosclerotic heart disease of native coronary artery without angina pectoris; N40.0 Benign prostatic hyperplasia without lower urinary tract symptoms; Z86.73 Personal history of transient ischemic attack (TIA), and cerebral infarction without residual deficits
CPT/HCPCS: 36415; 70450; 71010; 80053; 81003; 82550; 82553; 82607; 82728; 82746; 82977; 83036; 83540; 83550; 83690; 83735; 83880; 84100; 84439; 84443; 84484; 84550; 85007; 85025; 86140; 87070; 87086; 87205; 93005; 93306; 93970; 94640; 95819; 99285; J7620

== ENCOUNTER 2017-11-14 20:05 | Inpatient (IN) | payer OTHER, MEDICAID ==
[~2017-11-14] VITALS: Ht 185.4 cm; Wt 78.9 kg
[~2017-11-14 20:05] MED LIST changes: +TAMSULOSIN HCL0.4 MG ORAL
[2017-11-14 20:52] VITALS: BP 99/61
--- NOTE | 2017-11-14 21:23 | Emergency Room Report ---
History of Present Illness General Chief Complaint: General Complaint Source: Patient Present Illness HPI Is a 72-year-old male with a history blood pressure. He presents with chief complaint of joint weakness and body pain. Onset for last 2 days. Subjective fever and chills. Pain is 9/10 diffuse in nature. No nausea no vomiting. Mild cough. Denies any diarrhea. Denies any sick contact. No chest pain. Allergies: Coded Allergies: No Known Allergies (Unverified , 11/14/17) Patient History Past Medical History: see triage record, old chart reviewed, HTN Past Surgical History: other Pertinent Family History: none Social History: Denies: smoking Immunizations: other Reviewed Nursing Documentation: PMH: Agreed, PSxH: Agreed Nursing Documentation-PMH Hx Hypertension: Yes Review of Systems Constitutional: Reports: fever, malaise, weakness Eye: Denies: eye pain, blurred vision ENT: Denies: ear pain, nose congestion, throat swelling Respiratory: Denies: cough, shortness of breath Cardiovascular: Denies: chest pain, palpitations Gastrointestinal: Denies: abdominal pain, diarrhea, nausea, vomiting Musculoskeletal: Denies: back pain, joint pain Skin: Denies: rash Neurological: Denies: headache, numbness Endocrine: Denies: increased thirst, increased urine Hematologic/Lymphatic: Denies: easy bruising All Other Systems: negative except mentioned in HPI Physical Exam Vital Signs Date Time Temp Pulse Resp B/P (MAP) Pulse Ox O2 Delivery O2 Flow Rate FiO2 11/14/17 20:49 99.7 107 22 99/61 98 Room Air vitals with low-grade fever Sp02 EP Interpretation: reviewed, normal General Appearance: well appearing, no apparent distress, alert Head: normocephalic, atraumatic Eyes: bilateral eye PERRL, bilateral eye EOMI ENT: hearing grossly normal, normal pharynx Neck: full range of motion, supple, no meningismus Respiratory: chest non-tender, lungs clear, normal breath sounds Cardiovascular #1: regular rate, rhythm, no murmur Gastrointestinal: normal bowel sounds, no mass, no organomegaly, no bruit, non- distended, tenderness - diffuse Musculoskeletal: back normal, gait/station normal, normal range of motion Psychiatric: mood/affect normal Skin: warm/dry Medical Decision Making Diagnostic Impression: Primary Impression: Choledocholithiasis with acute cholecystitis with obstruction Additional Impression: PARAS (acute kidney injury) ER Course Patient presents with obstructing common bile duct stone. May also have sepsis secondary to cholecystitis. White count very high. His influenza is negative. Antibiotics given. He felt better now. We'll admit this patient unable to be transferred due to lack of bed at [facility]. I had initially discussed the case with the transferring Dr. Patient will be admitted here. Pt will be admitted to service of Dr. Frausto who is covering for Dr. Guevara. I also contacted Dr. Sullivan, surgeon regarding case. Laboratory Tests Test 11/14/17 21:35 11/14/17 21:56 Urine Color Brown Urine Appearance Clear Urine pH 6 (4.5-8.0) Urine Specific [place] 1.010 (1.005-1.035) Urine Protein Negative (NEGATIVE) Urine Glucose (UA) Negative (NEGATIVE) Urine Ketones 1+ (NEGATIVE) H Urine Occult Blood 1+ (NEGATIVE) H Urine Nitrite Negative (NEGATIVE) Urine Bilirubin 1+ (NEGATIVE) H Urine Ictotest Positive Urine Urobilinogen 4 MG/DL (0.0-1.0) H Urine Leukocyte Esterase 1+ (NEGATIVE) H Urine RBC 2-4 /HPF (0 - 0) H Urine WBC 2-4 /HPF (0 - 0) Urine Squamous Epithelial Cells None /LPF (NONE/OCC) Urine Bacteria Few /HPF (NONE) White Blood Count 29.7 K/UL (4.8-10.8) *H Red Blood Count 4.22 M/UL (4.70-6.10) L Hemoglobin 13.1 G/DL (14.2-18.0) L Hematocrit 41.0 % (42.0-52.0) L Mean Corpuscular Volume 97 FL (80-99) Mean Corpuscular Hemoglobin 31.1 PG (27.0-31.0) H Mean Corpuscular Hemoglobin Concent 32.0 G/DL (32.0-36.0) Red Cell Distribution Width 11.3 % (11.6-14.8) L Platelet Count 205 K/UL (150-450) Mean Platelet Volume 7.3 FL (6.5-10.1) Neutrophils (%) (Auto) % (45.0-75.0) Lymphocytes (%) (Auto) % (20.0-45.0) Monocytes (%) (Auto) % (1.0-10.0) Eosinophils (%) (Auto) % (0.0-3.0) Basophils (%) (Auto) % (0.0-2.0) Differential Total Cells Counted 100 Neutrophils % (Manual) 87 % (45-75) H Lymphocytes % (Manual) 5 % (20-45) L Monocytes % (Manual) 4 % (1-10) Eosinophils % (Manual) 1 % (0-3) Basophils % (Manual) 0 % (0-2) Band Neutrophils 3 % (0-8) Platelet Estimate Adequate Platelet Morphology Normal Red Blood Cell Morphology Normal Sodium Level 130 MMOL/L (136-145) L Potassium Level 4.2 MMOL/L (3.5-5.1) Chloride Level 95 MMOL/L (98-107) L Carbon Dioxide Level 25 MMOL/L (21-32) Anion Gap 10 mmol/L (5-15) Blood Urea Nitrogen 14 mg/dL (7-18) Creatinine 2.0 MG/DL (0.55-1.30) H Estimat Glomerular Filtration Rate mL/min (>60) Glucose Level 239 MG/DL (74-106) H Calcium Level 8.6 MG/DL (8.5-10.1) Total Bilirubin 3.4 MG/DL (0.2-1.0) H Direct Bilirubin 2.6 MG/DL (0.0-0.3) H Aspartate Amino Transf (AST/SGOT) 102 U/L (15-37) H Alanine Aminotransferase (ALT/SGPT) 41 U/L (12-78) Alkaline Phosphatase 251 U/L (46-116) H Total Protein 8.8 G/DL (6.4-8.2) H Albumin 3.2 G/DL (3.4-5.0) L Lipase 91 U/L (73-393) Lab Results Impression labs with elevated WBC Chest X-Ray Diagnostic Results Chest X-Ray Diagnostic Results : Chest X-Ray Ordered: Yes # of Views/Limited/Complete: 1 View Indication: Shortness of Breath EP Interpretation: Yes Interpretation: no consolidation, no effusion, no pneumothorax, no acute cardiopulmonary disease Impression: No acute disease Electronically Signed by: Aniceto Rodrigez MD CT/MRI/US Diagnostic Results CT/MRI/US Diagnostic Results #1: Imaging Test Ordered: CT abdomen and pelvis Impression read by radiologist. Cholelithiasis and choledocholithiasis. Distended gallbladder and biliary prominence, concerning for biliary obstruction. Possible mild stranding near pancreatic head, correlate clinically for pancreatitis. No appendicitis, SBO, or diverticulitis. No hydronephrosis or ureteral calculus. Small umbilical fat hernia. Possible right pelvis Paget's disease. Right lower lung mild infiltrates. CT/MRI/US Diagnostic Results #2: Imaging Test Ordered: Abdominal ultrasound Impression Read by night time nanny. Very dilated gallbladder. No stranding or of pericholecystic fluid. Common bile duct dilated to 1 cm. Positive gallstone. Last Vital Signs Date Time Temp Pulse Resp B/P (MAP) Pulse Ox O2 Delivery O2 Flow Rate FiO2 11/14/17 20:49 99.7 107 22 99/61 98 Room Air Status: improved Disposition: ADMITTED INPATIENT Condition: Serious ANICETO RODRIGEZ M.D. Nov 14, 2017 21:23
[2017-11-14] MEDS ORDERED: Ketorolac 30mg Inj IV ONE (21:30)
[2017-11-14] MEDS ORDERED: Acetaminophen 500mg (ES) tab ORAL ONE (21:30)
[2017-11-14 21:54] LABS: APPEARANCE,URINE CLEAR; BILIRUBIN, URINE 1+ (NEGATIVE); COLOR,URINE BROWN; GLUCOSE, URINE (UA) NEGATIVE (NEGATIVE); KETONES,URINE 1+ (NEGATIVE); LEUKOCYTE ESTERASE ,URINE 1+ (NEGATIVE); NITRITE,URINE NEGATIVE (NEGATIVE); PH,URINE 6 (4.5-8.0); PROTEIN,URINE NEGATIVE (NEGATIVE); UROBILINOGEN,URINE 4 MG/DL (0.0-1.0)
[2017-11-14 22:20] LABS: HEMOGLOBIN 13.1 G/DL (14.2-18.0); MEAN CORPUSCULAR VOLUME 97 FL (80-99); PLATELET COUNT 205 K/UL (150-450); RED BLOOD COUNT 4.22 M/UL (4.70-6.10); RED CELL DISTRIBUTION WIDTH 11.3 % (11.6-14.8)
[2017-11-14 22:23] LABS: WHITE BLOOD COUNT 29.7 K/UL (4.8-10.8)
[2017-11-14 22:28] LABS: ANION GAP 10 mmol/L (5-15); BLOOD UREA NITROGEN 14 mg/dL (7-18); CALCIUM 8.6 MG/DL (8.5-10.1); CARBON DIOXIDE 25 MMOL/L (21-32); CHLORIDE 95 MMOL/L (98-107); POTASSIUM 4.2 MMOL/L (3.5-5.1); SODIUM 130 MMOL/L (136-145)
[2017-11-14 22:52] VITALS: BP 100/55
[2017-11-15] VITALS (13 sets, daily range): BP systolic 90–130; BP diastolic 47–86
[2017-11-15] MEDS ORDERED: Mylanta II UD 30ml ORAL ONE (00:15)
[2017-11-15 00:22] LABS: ALANINE AMINOTRANSFERASE 41 U/L (12-78); ALBUMIN 3.2 G/DL (3.4-5.0); ALKALINE PHOSPHATASE 251 U/L (46-116); ASPARTATE AMINO TRANSFERASE 102 U/L (15-37); BILIRUBIN,DIRECT 2.6 MG/DL (0.0-0.3); BILIRUBIN,TOTAL 3.4 MG/DL (0.2-1.0)
[2017-11-15] MEDS ORDERED: Piperacillin/Tazobactam 3.375 GM in NS 55 ML IVPB ONE (00:30)
[2017-11-15] MEDS ORDERED: Zosyn 3.375gm inj ONE (01:22)
[2017-11-15] MEDS ORDERED: UNOBMED (04:19)
[2017-11-15] MEDS: Norco 5mg/325mg tab ORAL PRN ×2 (05:45→17:16)
[2017-11-15] MEDS: Heparin 5000 units/ml inj SUBQ SCH ×2 (09:02→21:43)
--- NOTE | 2017-11-15 09:58 | Diagnostic Imaging Report ---
Indication: Reason For Exam: SOB Technique: One view of the chest Comparison: none Findings: There are linear and irregular opacities in the right lung apex, more questionable similar opacities in the left lung apex. Questionable small curvilinear densities are seen in the left mid and upper lung. The remainder of the lungs and pleural spaces are clear. The heart size is normal. Impression: Bilateral apical opacities, probably on the basis of scarring but mass or infiltrate not excludable. More questionable smaller left mid and upper lung opacities. May just be artifact of normal vascular markings. Recommend CT for further evaluation of the above No acute process otherwise Patient's nurse notified at the time of interpretation
--- NOTE | 2017-11-15 10:42 | Diagnostic Imaging Report ---
Indication: Is abdominal pain Technique: Spiral acquisitions obtained through the abdomen and pelvis. No oral contrast utilized, per emergency room physician request No IV contrast utilized, per referring physician request.. Multiplanar reconstructions were generated. Total dose length product 671.06 mGycm. CTDIvol(s) 13.68 mGy. Dose reduction achieved using automated exposure control Comparison: None Findings: Since the appendix is normal. There is colonic diverticulosis. No evidence of diverticulitis. No small bowel distention. No free or loculated intraperitoneal air or fluid. There is a tiny fat-containing umbilical hernia. The distal esophagus, stomach, duodenum are unremarkable. The gallbladder is distended, but the wall is not particularly thickened and there is no pericholecystic inflammation. One or more small gallstones are seen within the gallbladder lumen. The common bile duct is dilated, measuring up to 13 mm in diameter. There is also significant central intrahepatic biliary ductal dilatation A 4 mm calculus is seen within the common bile duct. However, it does not span the entire lumen, and the dilated common bile duct is seen to continue downstream beyond this calculus. The common bile duct dilatation terminates within the pancreatic head, but a discrete pancreatic head mass or intraluminal calculus are not definitely identified. There are dense calcifications within the pancreatic head, any of which could be an ampullary calculus, but these could also be calcifications from chronic calcifying pancreatitis, which are present in abundance. The lack of IV contrast limits assessment of the solid organs. The liver is unremarkable other than the central intrahepatic biliary ductal dilatation. The pancreas, as mentioned earlier, contains numerous calcifications. It is also atrophic. The spleen is unremarkable. The left adrenal is somewhat enlarged, demonstrates surrounding fat stranding. The right adrenal is unremarkable. Unusual reticular and linear densities are seen around the upper pole of the right kidney. The kidneys are otherwise unremarkable. No calculi, hydronephrosis, or hydroureter demonstrated. No retroperitoneal or mesenteric mass or adenopathy. No pelvic mass or adenopathy. There are very mild degenerative changes of the lumbar spine. There is unusual appearance of the right pelvis, with mixture lucency and prominent trabecular markings likely representing pagetoid changes. Interstitial septal thickening, hyperinflation, and small bullae are seen at the lung bases. Reticular opacities are seen in the right middle lobe and right lower lobe Impression: Cholelithiasis and choledocholithiasis. Biliary ductal dilatation is concerning for common bile duct obstruction, most likely due to the choledocholithiasis, much less likely due to pancreatic mass. Consider MRCP for better characterization if clinically indicated Evidence of chronic calcifying pancreatitis COPD changes of the lung bases. Nonspecific interstitial septal thickening and reticular opacities Unusual fat stranding surrounding the adrenals. Correlate with adrenal function Unusual opacities over the right kidney, may indicate prior surgery Pagetoid changes of the right pelvis Other findings as noted, including degenerative spondylosis, fat-containing umbilical hernia This agrees with the preliminary interpretation provided overnight by [facility] teleradiology service. The CT scanner at [facility] is accredited by the [employer] and the scans are performed using protocols designed to limit radiation exposure to as low as reasonably achievable to attain images of sufficient resolution adequate for diagnostic evaluation.
--- NOTE | 2017-11-15 10:46 | Diagnostic Imaging Report ---
Indication: Abdominal pain Technique: Guillen-scale and duplex images of the upper abdomen were obtained Comparison: Reference made to CT scan performed one hour earlier Findings: Gallbladder demonstrates a small calculus. No gallbladder wall thickening nor pericholecystic fluid Sonographic Kline's sign is negative. Common bile duct measures 11 mm in diameter. The intraductal stones seen on recent CT is not visualized on the current exam, likely obscured by overlying bowel gas. There is intrahepatic biliary ductal dilatation. Liver demonstrates normal echogenicity, no focal abnormality. Portal vein and hepatic veins are patent. Pancreas is obscured by bowel gas. Spleen is unremarkable. Left kidney measures 10.6 cm in length. Right kidney measures 10.2 cm length. Both kidneys demonstrate normal echogenicity. There is no hydronephrosis. No focal abnormality . Non-aneurysmal abdominal aorta . Impression: Cholelithiasis, also described on recent CT. No secondary signs of acute cholecystitis Biliary ductal dilatation. Probably related to choledocholithiasis better seen on recent CT scan Nonvisualization of the pancreas
--- NOTE | 2017-11-15 11:21 | GI Initial Consult Note ---
Beatriz Lala N.P. 11/15/17 1121: History of Present Illness General Date patient seen: Nov 15, 2017 Time patient seen: 11:15 Reason for Hospitalization: General Complaint Referring physician: HANNAH ESTRADA Reason for Consultation: ABDOMINAL PAIN Present Illness HPI Is a 72-year-old male with a history blood pressure. He presents with chief complaint of joint weakness and body pain. Onset for last 2 days. Subjective fever and chills. Pain is 9/10 diffuse in nature. No nausea no vomiting. Mild cough. Denies any diarrhea. Denies any sick contact. No chest pain. GI consulted for abdominal pain. HPI as noted above. Pt seen on floor, awake A&Ox4 NAD with no active s/sx of N/V/D. Had previous abdominal pain, now rated at 6/10. Denies hematemesis/coffee grounds/melena/hematochezia. Last EGD /colonoscopy performed approximately 6 years which the patient stated as "okay. " CT AP shows possible choledocholithiasis, see full report. Lab evaluation leukocytosis with WBC 29 elevated total bilirubin elevated alkaline phosphatase Home Meds Active Scripts Hydrocodone Bit/Acetaminophen 5-325* (NORCO 5-325*) 1 Each Tablet, 1 TAB ORAL Q6H Y for For Pain, #20 TAB Prov:HERBERT ALVAREZ P.A. 12/22/14 Hydrocodone Bit/Acetaminophen 5-325* ([place] 5-325*) 1 Each Tablet, 1 TAB ORAL Q6H Y for For Pain, #15 TAB Prov:BEATA TRAN D.O. 12/26/13 Ibuprofen* (MOTRIN*) 600 Mg Tablet, 600 MG ORAL THREE TIMES A DAY, #20 TAB Prov:ITZELEHDOR,ALI D.O. 12/26/13 Hydrocodone Bit/Acetaminophen 10-325* (NORCO 10-325*) 1 Each Tablet, 1 TAB PO Q6H, #20 TAB PRN PAIN Prov:JAS HEAD M.D. 01/23/13 Ondansetron (Zofran) 4 Mg Tab, 4 MG PO Q8H, #10 TAB Prov:KAYLEIGH MACARIO P.A. 12/09/12 Hydrocodone Bit/Acetaminophen 5-325* (NORCO 5-325*) 1 Each Tablet, 1 TAB PO Q6H , #20 TAB Take 1 tablet by mouth every 6 hours as needed for pain. Prov:AMIRAHKAYLEIGHJUDE Adkins 12/09/12 Reported Medications Metronidazole (FLAGYL) 375 Mg Capsule, 300 MG ORAL Q8HR, #9 CAP 0 Refills 11/18/17 Ciprofloxacin (CIPRO) 500 Mg/5 Ml Consuelo.mc.rec, 500 MG PO Q12HR, #6 11/18/17 Docusate Sodium* (COLACE*) 100 Mg Capsule, 100 MG ORAL TWICE A DAY, #60 CAP 11/18/17 Hydrocodone Bit/Acetaminophen 5-325* (NORCO 5-325 TABLET*) 1 Each Tablet, 1 TAB ORAL Q4H Y for For Pain, #30 TAB 11/18/17 Unable to Obtain Medications (UNABLE TO OBTAIN MEDS) 1 Ea Ea 11/15/17 Tamsulosin Hcl (TAMSULOSIN HCL*) 0.4 Mg Cap.er.24h, 0.4 MG ORAL DAILY, CAP 08/14/17 Amlodipine Besylate (Norvasc) 10 Mg Tab, 10 MG PO DAILY, #10 TAB 12/25/12 Aspirin* (ASPIR-LOW*) 81 Mg Tablet.dr, 81 MG PO DAILY 12/25/12 Losartan/Hydrochlorothiazide (LOSARTAN-HCTZ 100-12.5 MG TAB) 1 Each Tablet, 1 TAB PO DAILY 12/25/12 Ibuprofen* (MOTRIN*) 600 Mg Tablet, 600 MG PO QID, TAB 12/25/12 Med list reviewed/reconciled: Yes Allergies: Coded Allergies: No Known Allergies (Unverified , 12/09/12) Patient History PMH Narrative Past Medical History: see triage record, old chart reviewed, HTN Past Surgical History: other Pertinent Family History: none Social History: Denies: smoking Immunizations: other Reviewed Nursing Documentation: PMH: Agreed, PSxH: Agreed Nursing Documentation-PMH Hx Hypertension: Yes Social History: Denies: smoking, alcohol use, drug use, other Review of Systems All Other Systems: negative except mentioned in HPI Physical Exam Vital Signs Date Time Temp Pulse Resp B/P (MAP) Pulse Ox O2 Delivery O2 Flow Rate FiO2 11/14/17 20:49 99.7 107 22 99/61 98 Room Air Sp02 EP Interpretation: reviewed, normal Labs Laboratory Tests Test 11/14/17 21:35 11/14/17 21:56 Urine Color Brown Urine Appearance Clear Urine pH 6 (4.5-8.0) Urine Specific [place] 1.010 (1.005-1.035) Urine Protein Negative (NEGATIVE) Urine Glucose (UA) Negative (NEGATIVE) Urine Ketones 1+ (NEGATIVE) H Urine Occult Blood 1+ (NEGATIVE) H Urine Nitrite Negative (NEGATIVE) Urine Bilirubin 1+ (NEGATIVE) H Urine Ictotest Positive Urine Urobilinogen 4 MG/DL (0.0-1.0) H Urine Leukocyte Esterase 1+ (NEGATIVE) H Urine RBC 2-4 /HPF (0 - 0) H Urine WBC 2-4 /HPF (0 - 0) Urine Squamous Epithelial Cells None /LPF (NONE/OCC) Urine Bacteria Few /HPF (NONE) White Blood Count 29.7 K/UL (4.8-10.8) *H Red Blood Count 4.22 M/UL (4.70-6.10) L Hemoglobin 13.1 G/DL (14.2-18.0) L Hematocrit 41.0 % (42.0-52.0) L Mean Corpuscular Volume 97 FL (80-99) Mean Corpuscular Hemoglobin 31.1 PG (27.0-31.0) H Mean Corpuscular Hemoglobin Concent 32.0 G/DL (32.0-36.0) Red Cell Distribution Width 11.3 % (11.6-14.8) L Platelet Count 205 K/UL (150-450) Mean Platelet Volume 7.3 FL (6.5-10.1) Neutrophils (%) (Auto) % (45.0-75.0) Lymphocytes (%) (Auto) % (20.0-45.0) Monocytes (%) (Auto) % (1.0-10.0) Eosinophils (%) (Auto) % (0.0-3.0) Basophils (%) (Auto) % (0.0-2.0) Differential Total Cells Counted 100 Neutrophils % (Manual) 87 % (45-75) H Lymphocytes % (Manual) 5 % (20-45) L Monocytes % (Manual) 4 % (1-10) Eosinophils % (Manual) 1 % (0-3) Basophils % (Manual) 0 % (0-2) Band Neutrophils 3 % (0-8) Platelet Estimate Adequate Platelet Morphology Normal Red Blood Cell Morphology Normal Sodium Level 130 MMOL/L (136-145) L Potassium Level 4.2 MMOL/L (3.5-5.1) Chloride Level 95 MMOL/L (98-107) L Carbon Dioxide Level 25 MMOL/L (21-32) Anion Gap 10 mmol/L (5-15) Blood Urea Nitrogen 14 mg/dL (7-18) Creatinine 2.0 MG/DL (0.55-1.30) H Estimat Glomerular Filtration Rate mL/min (>60) Glucose Level 239 MG/DL (74-106) H Calcium Level 8.6 MG/DL (8.5-10.1) Total Bilirubin 3.4 MG/DL (0.2-1.0) H Direct Bilirubin 2.6 MG/DL (0.0-0.3) H Aspartate Amino Transf (AST/SGOT) 102 U/L (15-37) H Alanine Aminotransferase (ALT/SGPT) 41 U/L (12-78) Alkaline Phosphatase 251 U/L (46-116) H Total Protein 8.8 G/DL (6.4-8.2) H Albumin 3.2 G/DL (3.4-5.0) L Lipase 91 U/L (73-393) General Appearance: well appearing, no apparent distress, alert Head: normocephalic EENT: PERRL/EOMI, normal ENT inspection Neck: supple Respiratory: normal breath sounds, no respiratory distress Cardiovascular: normal rate Gastrointestinal: normal inspection, non tender, soft, normal bowel sounds, non -distended Rectal: deferred Genitourinary: deferred Musculoskeletal: normal inspection, back normal Neurologic: normal inspection, alert, oriented x3, responsive Psychiatric: normal inspection, judgement/insight normal, memory normal Skin: normal inspection, normal color, no rash, warm/dry, palpation normal, well hydrated Lymphatic: normal inspection, no adenopathy Current Medications Current Medications Medications (Trade) Dose Ordered Sig/Bree Route PRN Reason Start Time Stop Time Status Last Admin Dose Admin Acetaminophen/ Hydrocodone Bitart ([place] 5/325) 1 tab Q8H PRN ORAL Severe Pain (Pain Scale 7-10) 11/15/17 05:15 11/22/17 05:14 11/15/17 05:45 Heparin Sodium (Porcine) (Heparin 5000 units/ml) 5,000 units EVERY 12 HOURS SUBQ 11/15/17 09:00 12/15/17 08:59 11/15/17 09:02 Ondansetron HCl (Zofran) 4 mg Q6H PRN IVP Nausea & Vomiting 11/15/17 05:15 12/15/17 05:14 Sodium Chloride 1,000 ml @ 150 mls/hr Q6H40M IV 11/15/17 05:15 12/15/17 05:14 11/15/17 10:25 GI: Plan Problems: (1) (2) Plan abdomina U/S, CT AP reviewed. ERCP today. maintain NPO + IVFs pain mgmt ppi IV fu labs Discussed with Dr. Johnson. Thank you for this patient referral, we will follow. AMY JOHNSON 11/20/17 1225: History of Present Illness General Reason for Hospitalization: General Complaint Present Illness Home Meds Active Scripts Hydrocodone Bit/Acetaminophen 5-325* (NORCO 5-325*) 1 Each Tablet, 1 TAB ORAL Q6H Y for For Pain, #20 TAB Prov:HERBERT ALVAREZ P.A. 12/22/14 Hydrocodone Bit/Acetaminophen 5-325* (NORCO 5-325*) 1 Each Tablet, 1 TAB ORAL Q6H Y for For Pain, #15 TAB Prov:BEATA TRAN D.O. 12/26/13 Ibuprofen* (MOTRIN*) 600 Mg Tablet, 600 MG ORAL THREE TIMES A DAY, #20 TAB Prov:BEATA TRAN D.O. 12/26/13 Hydrocodone Bit/Acetaminophen 10-325* (NORCO 10-325*) 1 Each Tablet, 1 TAB PO Q6H, #20 TAB PRN PAIN Prov:JAS HEAD M.D. 01/23/13 Ondansetron (Zofran) 4 Mg Tab, 4 MG PO Q8H, #10 TAB Prov:KAYLEIGH MACARIO P.A. 12/09/12 Hydrocodone Bit/Acetaminophen 5-325* (NORCO 5-325*) 1 Each Tablet, 1 TAB PO Q6H , #20 TAB Take 1 tablet by mouth every 6 hours as needed for pain. Prov:KAYLEIGH MACARIO P.A. 12/09/12 Reported Medications Metronidazole (FLAGYL) 375 Mg Capsule, 300 MG ORAL Q8HR, #9 CAP 0 Refills 11/18/17 Ciprofloxacin (CIPRO) 500 Mg/5 Ml Consuelo.mc.rec, 500 MG PO Q12HR, #6 11/18/17 Docusate Sodium* (COLACE*) 100 Mg Capsule, 100 MG ORAL TWICE A DAY, #60 CAP 11/18/17 Hydrocodone Bit/Acetaminophen 5-325* (NORCO 5-325 TABLET*) 1 Each Tablet, 1 TAB ORAL Q4H Y for For Pain, #30 TAB 11/18/17 Unable to Obtain Medications (UNABLE TO OBTAIN MEDS) 1 Ea Ea 11/15/17 Tamsulosin Hcl (TAMSULOSIN HCL*) 0.4 Mg Cap.er.24h, 0.4 MG ORAL DAILY, CAP 08/14/17 Amlodipine Besylate (Norvasc) 10 Mg Tab, 10 MG PO DAILY, #10 TAB 12/25/12 Aspirin* (ASPIR-LOW*) 81 Mg Tablet.dr, 81 MG PO DAILY 12/25/12 Losartan/Hydrochlorothiazide (LOSARTAN-HCTZ 100-12.5 MG TAB) 1 Each Tablet, 1 TAB PO DAILY 12/25/12 Ibuprofen* (MOTRIN*) 600 Mg Tablet, 600 MG PO QID, TAB 12/25/12 Allergies: Coded Allergies: No Known Allergies (Unverified , 12/09/12) GI: Plan Plan The patient was seen and examined at bedside and all new and available data was reviewed in the patients chart. I agree with the above findings, impression and plan. (Patient seen earlier today. Signature stamp does not reflect patient encounter time.). - MD Dai [facility] Enmanuel N.PAngeli Nov 15, 2017 11:21 AMY JOHNSON Nov 20, 2017 12:25
[2017-11-15 11:25] LABS: BASOPHILS % (AUTO) 0.2 % (0.0-2.0); HEMOGLOBIN 11.4 G/DL (14.2-18.0); LYMPHOCYTES % (AUTO) 6.3 % (20.0-45.0); MEAN CORPUSCULAR VOLUME 96 FL (80-99); NEUTROPHILS % (AUTO) 84.5 % (45.0-75.0); PLATELET COUNT 172 K/UL (150-450); RED BLOOD COUNT 3.55 M/UL (4.70-6.10); RED CELL DISTRIBUTION WIDTH 11.6 % (11.6-14.8)
--- NOTE | 2017-11-15 11:36 | Consultation ---
History of Present Illness General Date patient seen: Nov 15, 2017 Time patient seen: 11:56 Chief Complaint: General Complaint Referring physician: HANNAH ESTRADA Reason for Consultation: ABDOMINAL PAIN Present Illness HPI 72 y/o M with hx of HTN presents to ED on 11/14 with 2 days onset of joint weakness and body pain, subjective fevers and chills, mild cough and abd pain, rate 6/10. Found to have WBC up to 29, elevated bili and ALP and a CT AP that showed possible choledocholithiasis. Denies n/v/d, sick contacts, CP, hematemesis/hematochezia. Allergies: Coded Allergies: No Known Allergies (Unverified , 11/14/17) Medication History Miscellaneous Medications Unable to Obtain Medications (Unable To Obtain Meds), Unknown Dose, (Reported) Patient History Healthcare decision maker Resuscitation status Full Code Advanced Directive on File No Patient History Narrative PMhx: as above SHx Denies: smoking, alcohol use, drug use Fhx: non contributory Review of Systems ROS Narrative as per HPI, otherwise negative Physical Exam Physical Exam Narrative General Appearance: well appearing, no apparent distress, alert] HEENT: normocephalic, PERRL/EOMI, normal ENT inspection Neck: supple Respiratory: normal breath sounds, no respiratory distress Cardiovascular: normal rate Gastrointestinal: normal inspection, non tender, soft, normal bowel sounds, non -distended Musculoskeletal: normal inspection, back normal Neurologic: normal inspection, alert, oriented x3, responsive Psychiatric: normal inspection, judgement/insight normal, memory normal Skin: normal inspection, normal color, no rash, warm/dry, palpation normal, well hydrated Lymphatic: normal inspection, no adenopathy Last 24 Hour Vital Signs Date Time Temp Pulse Resp B/P (MAP) Pulse Ox O2 Delivery O2 Flow Rate FiO2 11/15/17 08:47 97.9 69 19 98/59 98 11/15/17 04:50 98.1 73 20 90/55 98 11/15/17 04:40 97.0 70 15 97/49 97 Room Air 11/15/17 04:40 97.0 70 15 97/48 97 Room Air 11/15/17 02:52 97.0 78 17 96/47 97 Room Air 11/15/17 00:52 98.2 100 15 111/61 97 Room Air 11/14/17 23:02 98.2 12/27/17 22:52 98.2 99 21 100/55 98 Room Air 11/14/17 22:32 98.2 11/14/17 20:52 99.7 107 22 99/61 98 Room Air 11/14/17 20:49 99.7 107 22 99/61 98 Room Air Intake and Output 11/14/17 11/15/17 19:00 07:00 Intake Total 1050 ml Balance 1050 ml Intake IV Total 1050 ml # Voids 2 Laboratory Tests Test 11/14/17 21:35 11/14/17 21:56 11/15/17 11:00 Urine Color Brown Urine Appearance Clear Urine pH 6 (4.5-8.0) Urine Specific [place] 1.010 (1.005-1.035) Urine Protein Negative (NEGATIVE) Urine Glucose (UA) Negative (NEGATIVE) Urine Ketones 1+ (NEGATIVE) H Urine Occult Blood 1+ (NEGATIVE) H Urine Nitrite Negative (NEGATIVE) Urine Bilirubin 1+ (NEGATIVE) H Urine Ictotest Positive Urine Urobilinogen 4 MG/DL (0.0-1.0) H Urine Leukocyte Esterase 1+ (NEGATIVE) H Urine RBC 2-4 /HPF (0 - 0) H Urine WBC 2-4 /HPF (0 - 0) Urine Squamous Epithelial Cells None /LPF (NONE/OCC) Urine Bacteria Few /HPF (NONE) White Blood Count 29.7 K/UL (4.8-10.8) *H 14.0 K/UL (4.8-10.8) #H Red Blood Count 4.22 M/UL (4.70-6.10) L 3.55 M/UL (4.70-6.10) L Hemoglobin 13.1 G/DL (14.2-18.0) L 11.4 G/DL (14.2-18.0) L Hematocrit 41.0 % (42.0-52.0) L 34.0 % (42.0-52.0) L Mean Corpuscular Volume 97 FL (80-99) 96 FL (80-99) Mean Corpuscular Hemoglobin 31.1 PG (27.0-31.0) H 32.2 PG (27.0-31.0) H Mean Corpuscular Hemoglobin Concent 32.0 G/DL (32.0-36.0) 33.6 G/DL (32.0-36.0) Red Cell Distribution Width 11.3 % (11.6-14.8) L 11.6 % (11.6-14.8) Platelet Count 205 K/UL (150-450) 172 K/UL (150-450) Mean Platelet Volume 7.3 FL (6.5-10.1) 8.0 FL (6.5-10.1) Neutrophils (%) (Auto) % (45.0-75.0) 84.5 % (45.0-75.0) H Lymphocytes (%) (Auto) % (20.0-45.0) 6.3 % (20.0-45.0) L Monocytes (%) (Auto) % (1.0-10.0) 9.0 % (1.0-10.0) Eosinophils (%) (Auto) % (0.0-3.0) 0.0 % (0.0-3.0) Basophils (%) (Auto) % (0.0-2.0) 0.2 % (0.0-2.0) Differential Total Cells Counted 100 Neutrophils % (Manual) 87 % (45-75) H Lymphocytes % (Manual) 5 % (20-45) L Monocytes % (Manual) 4 % (1-10) Eosinophils % (Manual) 1 % (0-3) Basophils % (Manual) 0 % (0-2) Band Neutrophils 3 % (0-8) Platelet Estimate Adequate Platelet Morphology Normal Red Blood Cell Morphology Normal Sodium Level 130 MMOL/L (136-145) L Pending Potassium Level 4.2 MMOL/L (3.5-5.1) Pending Chloride Level 95 MMOL/L (98-107) L Pending Carbon Dioxide Level 25 MMOL/L (21-32) Pending Anion Gap 10 mmol/L (5-15) Blood Urea Nitrogen 14 mg/dL (7-18) Pending Creatinine 2.0 MG/DL (0.55-1.30) H Pending Estimat Glomerular Filtration Rate mL/min (>60) Pending Glucose Level 239 MG/DL (74-106) H Pending Calcium Level 8.6 MG/DL (8.5-10.1) Pending Total Bilirubin 3.4 MG/DL (0.2-1.0) H Pending Direct Bilirubin 2.6 MG/DL (0.0-0.3) H Aspartate Amino Transf (AST/SGOT) 102 U/L (15-37) H Pending Alanine Aminotransferase (ALT/SGPT) 41 U/L (12-78) Pending Alkaline Phosphatase 251 U/L (46-116) H Pending Total Protein 8.8 G/DL (6.4-8.2) H Pending Albumin 3.2 G/DL (3.4-5.0) L Pending Lipase 91 U/L (73-393) Globulin Pending Microbiology Date/Time Source Procedure Growth Status 11/14/17 21:50 Nasal Nares Influenza Types A,B Antigen (MARIANA) - Final Complete Height (Feet): 6 Height (Inches): 1.00 Weight (Pounds): 174 Medications Current Medications Medications (Trade) Dose Ordered Sig/Bree Route PRN Reason Start Time Stop Time Status Last Admin Dose Admin Acetaminophen/ Hydrocodone Bitart ([place] 5/325) 1 tab Q8H PRN ORAL Severe Pain (Pain Scale 7-10) 11/15/17 05:15 11/22/17 05:14 11/15/17 05:45 Heparin Sodium (Porcine) (Heparin 5000 units/ml) 5,000 units EVERY 12 HOURS SUBQ 11/15/17 09:00 12/15/17 08:59 11/15/17 09:02 Ondansetron HCl (Zofran) 4 mg Q6H PRN IVP Nausea & Vomiting 11/15/17 05:15 12/15/17 05:14 Sodium Chloride 1,000 ml @ 150 mls/hr Q6H40M IV 11/15/17 05:15 12/15/17 05:14 11/15/17 10:25 Assessment/Plan Assessment/Plan Abx: Zosyn x1 11/15 Assessment: Leukocytosis, improving- ?2ry to cholangitis vs PNA -afebrile Pulmonary opacities- ?scarring vs PNA vs mass- CT chest ordered -CXR: Bilateral apical opacities, probably on the basis of scarring but mass or infiltrate not excludable. -influenza neg Choledocholithiasis and cholelithiasis -CT abd/p: Cholelithiasis and choledocholithiasis. Biliary ductal dilatation is concerning for common bile duct obstruction, most likely due to the choledocholithiasis, much less likely due to pancreatic mass. Consider MRCP for better characterization if clinically indicated. Evidence of chronic calcifying pancreatitis. COPD changes of the lung bases. Nonspecific interstitial septal thickening and reticular opacities. Unusual fat stranding surrounding the adrenals. Correlate with adrenal function. Unusual opacities over the right kidney, may indicate prior surgery. Pagetoid changes of the right pelvis -Abd US: Cholelithiasis, also described on recent CT. No secondary signs of acute cholecystitis. Biliary ductal dilatation. Probably related to choledocholithiasis better seen on recent CT scan Elevated LFTs, ALB. Bili- 2ry to above PARAS- improving HTN Plan: -s/p 1 dose of Zosyn; start Ceftriaxone and Flagyl for possible cholangitis and PNA -For ERCP today per GI -please send cultures from biliary fluid -obtain sp and Bcx -f/u CT chest -f/u cx -Monitor CBC/CMP, temperatures -aspiration precautions Thank you for this consultation. Will continue to follow along with you. Discussed with Lidia Johnsno M.D. Nov 15, 2017 11:36
[2017-11-15 11:52] LABS: ALANINE AMINOTRANSFERASE 43 U/L (12-78); ALBUMIN 2.7 G/DL (3.4-5.0); ALBUMIN/GLOBULIN RATIO 0.6 (1.0-2.7); ALKALINE PHOSPHATASE 209 U/L (46-116); ANION GAP 8 mmol/L (5-15); ASPARTATE AMINO TRANSFERASE 79 U/L (15-37); BILIRUBIN,TOTAL 3.3 MG/DL (0.2-1.0); BLOOD UREA NITROGEN 19 mg/dL (7-18); CALCIUM 7.7 MG/DL (8.5-10.1); CARBON DIOXIDE 25 MMOL/L (21-32); CHLORIDE 100 MMOL/L (98-107); CREATININE 1.8 MG/DL (0.55-1.30); POTASSIUM 4.1 MMOL/L (3.5-5.1); SODIUM 133 MMOL/L (136-145)
[2017-11-15 11:54] LABS: BILIRUBIN,DIRECT 2.8 MG/DL (0.0-0.3)
--- NOTE | 2017-11-15 12:37 | Consultation ---
History of Present Illness General Date patient seen: Nov 15, 2017 Chief Complaint: General Complaint Referring physician: HANNAH ESTRADA Reason for Consultation: ABDOMINAL PAIN Present Illness HPI 72 year old male presented with worsening RUQ abdominal pain with associated nausea and emesis. As per patient, he was in his normal state of health until two days ago when he began to have some vague RUQ abdominal pain. Pain progressively worsened and he spent most the day at home in bed because of pain. Pain 10/10 RUQ at max with no radiation. associated nausea and multiple non bloody emesis. chills and fatigue. normal BM's. no significant appetite. has had intermittent RUQ abdominal discomfort for years but did not seek medical care. in ED had scan which demonstrated cholecystitis with choledocholithiasis. leukocytosis of 29k and elevated t bili/lfts. surgery called to evaluate. Allergies: Coded Allergies: No Known Allergies (Unverified , 11/14/17) Medication History Miscellaneous Medications Unable to Obtain Medications (Unable To Obtain Meds), Unknown Dose, (Reported) Patient History History Provided By: Patient Healthcare decision maker Resuscitation status Full Code Advanced Directive on File No Past Medical/Surgical History Past Medical/Surgical History: (1) PARAS (acute kidney injury) (2) Choledocholithiasis with acute cholecystitis with obstruction (3) Cholecystitis (4) Leukocytosis Review of Systems Constitutional: Reports: no symptoms, chills, fever, malaise, Denies: see HPI, sweats, weakness, other Eye: Denies: no symptoms, see HPI, eye pain, blurred vision, tearing, double vision, nose pain, nose congestion, acuity changes, discharge, other ENT: Denies: no symptoms, see HPI, ear pain, ear discharge, nose pain, nose congestion, throat pain, throat swelling, mouth pain, hearing loss, nasal discharge, other Respiratory: Denies: no symptoms, see HPI, cough, orthopnea, shortness of breath, stridor, wheezing, BOYCE, sputum, other Cardiovascular: Denies: no symptoms, see HPI, chest pain, edema, palpitations, syncope, PND, other Gastrointestinal: Reports: abdominal pain, nausea, vomiting Genitourinary: Denies: no symptoms, see HPI, discharge, dysuria, frequency, hematuria, pain, retention, incontinence, urgency, vag bleed/dc, other Musculoskeletal: Reports: joint pain, Denies: no symptoms, see HPI, back pain, gout, joint swelling, muscle pain, muscle stiffness, other Skin: Denies: no symptoms, see HPI, rash, change in color, change in hair/nails , dryness, lesions, other Psychiatric: Denies: no symptoms, see HPI, prior hx, anxiety, depressed feelings, emotional problems, SI, HI, hallucinations, other Neurological: Denies: no symptoms, see HPI, headache, numbness, paresthesia, seizure, tingling, tremors, focal weakness, syncope, dizziness, other Endocrine: Denies: no symptoms, see HPI, excessive sweating, flushing, intolerance to temperature, increased thirst, increased urine, unexplained weight loss, other All Other Systems: negative except mentioned in HPI Physical Exam General Appearance: WD/WN, no apparent distress, alert Lines, tubes and drains: peripheral HEENT: normocephalic, atraumatic, mucous membranes moist, PERRL Neck: non-tender, normal alignment, normal inspection Respiratory/Chest: lungs clear, normal breath sounds, no respiratory distress, no accessory muscle use Cardiovascular/Chest: normal peripheral pulses, normal rate, regular rhythm Abdomen: normal bowel sounds, non tender, soft, no organomegaly, no mass Extremities: normal inspection Skin Exam: normal pigmentation, warm/dry Neurologic: alert, oriented x 3, responsive Last 24 Hour Vital Signs Date Time Temp Pulse Resp B/P (MAP) Pulse Ox O2 Delivery O2 Flow Rate FiO2 11/15/17 11:37 98.4 74 20 107/59 95 11/15/17 08:47 97.9 69 19 98/59 98 11/15/17 04:50 98.1 73 20 90/55 98 11/15/17 04:40 97.0 70 15 97/49 97 Room Air 11/15/17 04:40 97.0 70 15 97/48 97 Room Air 11/15/17 02:52 97.0 78 17 96/47 97 Room Air 11/15/17 00:52 98.2 100 15 111/61 97 Room Air 11/14/17 23:02 98.2 11/14/17 22:52 98.2 99 21 100/55 98 Room Air 11/14/17 22:32 98.2 11/14/17 20:52 99.7 107 22 99/61 98 Room Air 11/14/17 20:49 99.7 107 22 99/61 98 Room Air Intake and Output 11/14/17 11/15/17 19:00 07:00 Intake Total 1050 ml Balance 1050 ml Intake IV Total 1050 ml # Voids 2 Laboratory Tests Test 11/14/17 21:35 11/14/17 21:56 11/15/17 11:00 Urine Color Brown Urine Appearance Clear Urine pH 6 (4.5-8.0) Urine Specific Rayne 1.010 (1.005-1.035) Urine Protein Negative (NEGATIVE) Urine Glucose (UA) Negative (NEGATIVE) Urine Ketones 1+ (NEGATIVE) H Urine Occult Blood 1+ (NEGATIVE) H Urine Nitrite Negative (NEGATIVE) Urine Bilirubin 1+ (NEGATIVE) H Urine Ictotest Positive Urine Urobilinogen 4 MG/DL (0.0-1.0) H Urine Leukocyte Esterase 1+ (NEGATIVE) H Urine RBC 2-4 /HPF (0 - 0) H Urine WBC 2-4 /HPF (0 - 0) Urine Squamous Epithelial Cells None /LPF (NONE/OCC) Urine Bacteria Few /HPF (NONE) White Blood Count 29.7 K/UL (4.8-10.8) *H 14.0 K/UL (4.8-10.8) #H Red Blood Count 4.22 M/UL (4.70-6.10) L 3.55 M/UL (4.70-6.10) L Hemoglobin 13.1 G/DL (14.2-18.0) L 11.4 G/DL (14.2-18.0) L Hematocrit 41.0 % (42.0-52.0) L 34.0 % (42.0-52.0) L Mean Corpuscular Volume 97 FL (80-99) 96 FL (80-99) Mean Corpuscular Hemoglobin 31.1 PG (27.0-31.0) H 32.2 PG (27.0-31.0) H Mean Corpuscular Hemoglobin Concent 32.0 G/DL (32.0-36.0) 33.6 G/DL (32.0-36.0) Red Cell Distribution Width 11.3 % (11.6-14.8) L 11.6 % (11.6-14.8) Platelet Count 205 K/UL (150-450) 172 K/UL (150-450) Mean Platelet Volume 7.3 FL (6.5-10.1) 8.0 FL (6.5-10.1) Neutrophils (%) (Auto) % (45.0-75.0) 84.5 % (45.0-75.0) H Lymphocytes (%) (Auto) % (20.0-45.0) 6.3 % (20.0-45.0) L Monocytes (%) (Auto) % (1.0-10.0) 9.0 % (1.0-10.0) Eosinophils (%) (Auto) % (0.0-3.0) 0.0 % (0.0-3.0) Basophils (%) (Auto) % (0.0-2.0) 0.2 % (0.0-2.0) Differential Total Cells Counted 100 Neutrophils % (Manual) 87 % (45-75) H Lymphocytes % (Manual) 5 % (20-45) L Monocytes % (Manual) 4 % (1-10) Eosinophils % (Manual) 1 % (0-3) Basophils % (Manual) 0 % (0-2) Band Neutrophils 3 % (0-8) Platelet Estimate Adequate Platelet Morphology Normal Red Blood Cell Morphology Normal Sodium Level 130 MMOL/L (136-145) L 133 MMOL/L (136-145) L Potassium Level 4.2 MMOL/L (3.5-5.1) 4.1 MMOL/L (3.5-5.1) Chloride Level 95 MMOL/L (98-107) L 100 MMOL/L (98-107) Carbon Dioxide Level 25 MMOL/L (21-32) 25 MMOL/L (21-32) Anion Gap 10 mmol/L (5-15) 8 mmol/L (5-15) Blood Urea Nitrogen 14 mg/dL (7-18) 19 mg/dL (7-18) H Creatinine 2.0 MG/DL (0.55-1.30) H 1.8 MG/DL (0.55-1.30) H Estimat Glomerular Filtration Rate mL/min (>60) mL/min (>60) Glucose Level 239 MG/DL (74-106) H 120 MG/DL (74-106) #H Calcium Level 8.6 MG/DL (8.5-10.1) 7.7 MG/DL (8.5-10.1) L Total Bilirubin 3.4 MG/DL (0.2-1.0) H 3.3 MG/DL (0.2-1.0) H Direct Bilirubin 2.6 MG/DL (0.0-0.3) H 2.8 MG/DL (0.0-0.3) H Aspartate Amino Transf (AST/SGOT) 102 U/L (15-37) H 79 U/L (15-37) H Alanine Aminotransferase (ALT/SGPT) 41 U/L (12-78) 43 U/L (12-78) Alkaline Phosphatase 251 U/L (46-116) H 209 U/L (46-116) H Total Protein 8.8 G/DL (6.4-8.2) H 7.5 G/DL (6.4-8.2) Albumin 3.2 G/DL (3.4-5.0) L 2.7 G/DL (3.4-5.0) L Lipase 91 U/L (73-393) Globulin 4.8 g/dL Albumin/Globulin Ratio 0.6 (1.0-2.7) L Microbiology Date/Time Source Procedure Growth Status 11/14/17 21:50 Nasal Nares Influenza Types A,B Antigen (MARIANA) - Final Complete Height (Feet): 6 Height (Inches): 1.00 Weight (Pounds): 174 Medications Current Medications Medications (Trade) Dose Ordered Sig/Bree Route PRN Reason Start Time Stop Time Status Last Admin Dose Admin Acetaminophen/ Hydrocodone Bitart ([place] 5/325) 1 tab Q8H PRN ORAL Severe Pain (Pain Scale 7-10) 11/15/17 05:15 11/22/17 05:14 11/15/17 05:45 Ceftriaxone Sodium 1 gm/ Dextrose 55 ml @ 110 mls/hr Q24H IVPB 11/15/17 13:00 11/22/17 12:59 Heparin Sodium (Porcine) (Heparin 5000 units/ml) 5,000 units EVERY 12 HOURS SUBQ 11/15/17 09:00 12/15/17 08:59 11/15/17 09:02 Metronidazole 100 ml @ 100 mls/hr Q8HR IVPB 11/15/17 14:00 11/22/17 13:59 Ondansetron HCl (Zofran) 4 mg Q6H PRN IVP Nausea & Vomiting 11/15/17 05:15 12/15/17 05:14 Sodium Chloride 1,000 ml @ 150 mls/hr Q6H40M IV 11/15/17 05:15 12/15/17 05:14 11/15/17 10:25 Assessment/Plan Problem List: (1) Choledocholithiasis with acute cholecystitis with obstruction Assessment & Plan: 72M with acute cholecystitis and choledocholithiasis. currently afebrile, HD stable, leukocytosis 29k, elevated t bili/lft's, CT with obstructing stone, ultrasound with distended gallbladder/stones. on exam pain improved since administered pain meds and abx. -ERCP as planned per GI -Abx as per ID -trend labs -should have cholecystectomy given history and recent events. will discuss timing of cholecystectomy with patient after this episode resolved. thank you for this consultation. will follow with you. ICD Codes: K80.41 - Calculus of bile duct with cholecystitis, unspecified, with obstruction SNOMED: [id number] Status: stable JoaojoyColt Nov 15, 2017 12:37
--- NOTE | 2017-11-15 14:13 | Diagnostic Imaging Report ---
Clinical Indication: Abnormal chest radiograph, cough Technique: Spiral acquisitions obtained through the chest. No IV contrast utilized, due to history of acute kidney injury. Multiplanar reconstructions generated. Total dose length product 655 mGycm. CTDIvol(s) 17.31 mGy. Dose reduction achieved using automated exposure control Comparison: none. Reference made to chest radiograph 11/14/2017 Findings: There is parenchymal scarring at the right lung apex, presumably accounting for the apical opacity described on recent chest radiograph. There is also underlying pleural scarring. Similar parenchymal scarring is seen in the left lung apex as well, less striking on the recent chest radiograph. The possibility of underlying mass within either these areas of opacity cannot be completely ruled out. There is some calcification at the periphery of the left apical scarring. Apical bullae are also present. There is generalized hyperinflation. Some scarring is seen adjacent to the posterior minor fissure on the right. A non-calcified 5 mm solid nodule in the right lower lobe (series 33, image 4) is indeterminate. Some pleural thickening is seen at the lung bases bilaterally. Some irregular opacities likely representing scarring are seen in the perihilar left upper lobe. No mediastinal or hilar mass or adenopathy. There is minimal anterior pericardial thickening. The heart size is normal. There are coronary artery calcifications. The included upper abdominal anatomy is remarkable for intrahepatic biliary ductal dilatation and unusual opacities surrounding the upper pole of the right kidney. Impression: Bilateral apical parenchymal scarring, presumably accounting for the opacities demonstrated on recent chest radiograph. Findings do not appear suspicious for neoplasm, although underlying mass lesion cannot be completely ruled out COPD changes Other areas of postinflammatory change, as described Upper abdominal findings, as described, also described in recent abdomen pelvis CT report Indeterminate solid pulmonary nodule measuring 5 mm. In a high-risk patient with a solid nodule <6 mm, CT at 12 months is optional with stronger consideration if there is suspicious nodule morphology and/or upper lobe location. Cesiahoxenia H, et al. Guidelines for Management of Incidental Pulmonary Nodules Detected on CT Images: From the Fleischner Society 2017. Radiology. 2017 Guillermo;284(1):228-243. The CT scanner at [facility] is accredited by the [employer] and the scans are performed using protocols designed to limit radiation exposure to as low as reasonably achievable to attain images of sufficient resolution adequate for diagnostic evaluation.
--- NOTE | 2017-11-15 14:26 | Anethesia Preoperative Eval ---
Anesthesia Pre-op PMH/ROS General Date of Evaluation: Nov 15, 2017 Time of Evaluation: 14:31 Anesthesiologist: Caryn ASA Score: ASA 3 Mallampati Score Class I : Soft palate, uvula, fauces, pillars visible Class II: Soft palate, uvula, fauces visible Class III: Soft palate, base of uvula visible Class IV: Only hard plate visible Mallampati Classification: Class II Surgeon: Leslie Diagnosis: Abd Pain Surgical Procedure: ERCP Anesthesia History: none Family History: no anesthesia problems Allergies: Coded Allergies: No Known Allergies (Unverified , 11/14/17) Medications: see eMAR Past Medical History Cardiovascular: Reports: HTN Pulmonary: Reports: other - Bronchitis Musculoskeletal/Integumentary: Reports: other - Back Pain PSxH Narrative: Appendectomy Anesthesia Pre-op Phys. Exam Physician Exam Last Vital Signs Date Time Temp Pulse Resp B/P (MAP) Pulse Ox O2 Delivery O2 Flow Rate FiO2 11/15/17 11:37 98.4 74 20 107/59 95 11/15/17 04:40 Room Air Constitutional: NAD Neurologic: CN 2-12 intact Cardiovascular: RRR Respiratory: CTA Gastrointestinal: S/NT/ND Airway Exam Mallampati Score: Class II MO: limited ROM: full Teeth: intact Anesthesia Pre-op A/P Labs Hematology Test 11/14/17 21:56 11/15/17 11:00 White Blood Count 29.7 K/UL (4.8-10.8) *H 14.0 K/UL (4.8-10.8) #H Red Blood Count 4.22 M/UL (4.70-6.10) L 3.55 M/UL (4.70-6.10) L Hemoglobin 13.1 G/DL (14.2-18.0) L 11.4 G/DL (14.2-18.0) L Hematocrit 41.0 % (42.0-52.0) L 34.0 % (42.0-52.0) L Mean Corpuscular Volume 97 FL (80-99) 96 FL (80-99) Mean Corpuscular Hemoglobin 31.1 PG (27.0-31.0) H 32.2 PG (27.0-31.0) H Mean Corpuscular Hemoglobin Concent 32.0 G/DL (32.0-36.0) 33.6 G/DL (32.0-36.0) Red Cell Distribution Width 11.3 % (11.6-14.8) L 11.6 % (11.6-14.8) Platelet Count 205 K/UL (150-450) 172 K/UL (150-450) Mean Platelet Volume 7.3 FL (6.5-10.1) 8.0 FL (6.5-10.1) Neutrophils (%) (Auto) % (45.0-75.0) 84.5 % (45.0-75.0) H Lymphocytes (%) (Auto) % (20.0-45.0) 6.3 % (20.0-45.0) L Monocytes (%) (Auto) % (1.0-10.0) 9.0 % (1.0-10.0) Eosinophils (%) (Auto) % (0.0-3.0) 0.0 % (0.0-3.0) Basophils (%) (Auto) % (0.0-2.0) 0.2 % (0.0-2.0) Differential Total Cells Counted 100 Neutrophils % (Manual) 87 % (45-75) H Lymphocytes % (Manual) 5 % (20-45) L Monocytes % (Manual) 4 % (1-10) Eosinophils % (Manual) 1 % (0-3) Basophils % (Manual) 0 % (0-2) Band Neutrophils 3 % (0-8) Platelet Estimate Adequate Platelet Morphology Normal Red Blood Cell Morphology Normal Chemistry Test 11/14/17 21:56 11/15/17 11:00 Sodium Level 130 MMOL/L (136-145) L 133 MMOL/L (136-145) L Potassium Level 4.2 MMOL/L (3.5-5.1) 4.1 MMOL/L (3.5-5.1) Chloride Level 95 MMOL/L (98-107) L 100 MMOL/L (98-107) Carbon Dioxide Level 25 MMOL/L (21-32) 25 MMOL/L (21-32) Anion Gap 10 mmol/L (5-15) 8 mmol/L (5-15) Blood Urea Nitrogen 14 mg/dL (7-18) 19 mg/dL (7-18) H Creatinine 2.0 MG/DL (0.55-1.30) H 1.8 MG/DL (0.55-1.30) H Estimat Glomerular Filtration Rate mL/min (>60) mL/min (>60) Glucose Level 239 MG/DL (74-106) H 120 MG/DL (74-106) #H Calcium Level 8.6 MG/DL (8.5-10.1) 7.7 MG/DL (8.5-10.1) L Total Bilirubin 3.4 MG/DL (0.2-1.0) H 3.3 MG/DL (0.2-1.0) H Direct Bilirubin 2.6 MG/DL (0.0-0.3) H 2.8 MG/DL (0.0-0.3) H Aspartate Amino Transf (AST/SGOT) 102 U/L (15-37) H 79 U/L (15-37) H Alanine Aminotransferase (ALT/SGPT) 41 U/L (12-78) 43 U/L (12-78) Alkaline Phosphatase 251 U/L (46-116) H 209 U/L (46-116) H Total Protein 8.8 G/DL (6.4-8.2) H 7.5 G/DL (6.4-8.2) Albumin 3.2 G/DL (3.4-5.0) L 2.7 G/DL (3.4-5.0) L Lipase 91 U/L (73-393) Globulin 4.8 g/dL Albumin/Globulin Ratio 0.6 (1.0-2.7) L Risk Assessment & Plan Assessment: ASA 3 Plan: GA Status Change Before Surgery: No Pre-Antibiotics Dru Gram Cefoxitin IV Given Within 1 Hr of Incision: Yes Time Given: 14:46 Jet Rubin MD Nov 15, 2017 14:26
[2017-11-15] MEDS ORDERED: Iothalamate Meglumine 60% 30ML INJ ONE (14:28)
[2017-11-15] MEDS ORDERED: NS 500ML IV ONE (14:30)
[2017-11-15] MEDS ORDERED: Lidocaine 1% MPF 10mg/ml 5ml ONE (14:30)
[2017-11-15] MEDS ORDERED: Propofol 200mg/20ml IV ONE (14:30)
[2017-11-15] MEDS ORDERED: Metoprolol 5mg/5ml Inj ONE (14:30)
[2017-11-15] MEDS ORDERED: LR 1000ml ONE (14:30)
--- NOTE | 2017-11-15 14:35 | Immediate Post-Op Evaluation ---
Immediate Post-Op Evalulation Immediate Post-Op Evalulation Procedure: ERCP Date of Evaluation: Nov 15, 2017 Time of Evaluation: 16:15 IV Fluids: 500 LR Blood Products: 0 Estimated Blood Loss: 10 Urinary Output: 0 Blood Pressure Systolic: 125 Blood Pressure Diastolic: 82 Pulse Rate: 81 Respiratory Rate: 16 O2 Sat by Pulse Oximetry: 98 Temperature (Fahrenheit): 98.4 Pain Score (1-10): 1 Nausea: No Vomiting: No Complications 0 Patient Status: awake, reacts, patent, none Hydration Status: adequate Dru Gram Cefoxitin IV Given Within 1 Hr of Incision: Yes Time Given: 14:46 Jet Rubin MD Nov 15, 2017 14:35
--- NOTE | 2017-11-15 14:36 | 48 Hour Post Anesthesia Eval ---
Post Anesthesia Evaluation Procedure: ERCP Date of Evaluation: Nov 15, 2017 Time of Evaluation: 18:21 Blood Pressure Systolic: 124 0: 73 Pulse Rate: 84 Respiratory Rate: 18 Temperature (Fahrenheit): 98.4 O2 Sat by Pulse Oximetry: 99 Airway: patent Nausea: No Vomiting: No Pain Intensity: 1 Hydration Status: adequate Cardiopulmonary Status: Stable Mental Status/LOC: patient returned to baseline Follow-up Care/Observations: 0 Post-Anesthesia Complications: 0 Follow-up care needed: N/A Jet Rubin MD Nov 15, 2017 14:36
--- NOTE | 2017-11-15 16:11 | Endoscopy Procedure Note ---
Endoscopy Procedure Note Indication for Procedure: cholangitis Procedures Performed: ERCP Operative Findings/Diagnosis: same Specimen: yes Pt Tolerated Procedure Well: Yes Estimated Blood Loss: none Anesthesiologist: shan Anesthesia: MAC Implant(s) used?: No 50 yrs or older w/o bx or poly: Not Applicable 10yrs. F/U not recommended: Not Applicable AMY JOHNSON Nov 15, 2017 16:11
--- NOTE | 2017-11-15 16:58 | Diagnostic Imaging Report ---
Indication: Abdominal pain, elevated bilirubin Technique: Intraprocedural images Comparison: Reference made to recent CT scan Findings: Digital images demonstrate opacification of dilated common bile duct and common hepatic duct as well as mildly dilated central intrahepatic bile ducts. Small intraluminal filling defects are consistent with small common bile duct calculi. Subsequent images demonstrate stone deployment balloon, balloon dilatation of the ampulla with an angioplasty balloon, and placement of a plastic endobiliary stent Impression: Intraoperative images, as described
[2017-11-15] MEDS: cefTRIAXone 1 GM in D5W 55 ML IVPB SCH (17:17)
[2017-11-15] MEDS ORDERED: Morphine Sulfate 2mg/ml Inj IVP PRN (18:30)
--- NOTE | 2017-11-15 21:30 | Procedure Note ---
DATE OF PROCEDURE: 11/15/2017 PROCEDURE: ERCP with sphincterotomy, dilatation, stone removal, and stent placement. ANESTHESIA: Per Dr. Rubin. INSTRUMENT: Olympus scope. INDICATIONS: Biliary obstruction and cholangitis. The procedure, risks, benefits, and possible consequences, including hemorrhage, aspiration, perforation and infection, and alternative treatments, were explained to the patient/legal guardian by Dr. Elias Nelson and the patient/legal guardian understood and accepted these risks. DESCRIPTION OF PROCEDURE: After informed consent was obtained and the patient was adequately sedated, ERCP scope was advanced from the mouth into the second portion of the duodenum. Using the sphincterotome, common bile duct was selectively cannulated. Initial cholangiogram showed evidence of dilated common bile duct to about 12 mm. The patient had a tight stricture in the distal common bile duct that was a short stricture and may be about 1 cm, but very tight. Using a sphincterotome over guidewire, 95% sphincterotomy was performed. Also, I would like to mention that there were multiple floating stones in the common bile duct. After ERCP was completed, we used a 1-cm balloon to dilate the distal common bile duct stricture. After the dilation, lot of stones, sludge, and also pus was coming out from the common bile duct. Then, we used a balloon to sweep the duct multiple times to remove the remaining stones, sludge, and pus. Over a guidewire, I proceeded with brush biopsy and then 10-Thai 7-cm stent was successfully placed in the distal common bile duct. SUMMARY OF FINDINGS: 1. Choledocholithiasis. 2. Short distal biliary stricture. 3. Status post endoscopic retrograde cholangiopancreatography with sphincterotomy, dilation, biopsy, and stenting. RECOMMENDATIONS: Follow up biopsy results and treat accordingly. The patient is to come back in three months for removal of the stent and may need repeat biopsies. Elias Nelson M.D. DR: Indy JOB#: [id number] CC:
--- NOTE | 2017-11-15 22:36 | Consultation ---
Consult Note Consult Note JOb ID: [id number] Luis Frausto Nov 15, 2017 22:36
[2017-11-16] VITALS: BP 101/59
[2017-11-16 04:00] VITALS: BP 123/76
[2017-11-16 08:00] VITALS: BP 128/80
[2017-11-16 08:45] LABS: BASOPHILS % (AUTO) 0.1 % (0.0-2.0); EOSINOPHILS % (AUTO) 0.1 % (0.0-3.0); HEMATOCRIT 33.1 % (42.0-52.0); HEMOGLOBIN 11.3 G/DL (14.2-18.0); LYMPHOCYTES % (AUTO) 10.3 % (20.0-45.0); MEAN CORPUSCULAR VOLUME 97 FL (80-99); MONOCYTES % (AUTO) 11.7 % (1.0-10.0); NEUTROPHILS % (AUTO) 77.8 % (45.0-75.0); PLATELET COUNT 159 K/UL (150-450); RED CELL DISTRIBUTION WIDTH 11.6 % (11.6-14.8); WHITE BLOOD COUNT 8.5 K/UL (4.8-10.8)
[2017-11-16] MEDS: Hyzaar 12.5mg/50mg tab ORAL SCH (09:00)
[2017-11-16] MEDS: Heparin 5000 units/ml inj SUBQ SCH (09:00)
[2017-11-16] MEDS ORDERED: Aspirin Baby 81mg NG SCH (09:00)
--- NOTE | 2017-11-16 09:13 | General Surgery Progress Note ---
General Surgery-Progress Note Subjective Symptoms: improved Additional Comments c/o dry throat. otherwise well. mild abdominal discomfort. successful ERCP yesterday Objective Last 24 Hour Vital Signs Date Time Temp Pulse Resp B/P (MAP) Pulse Ox O2 Delivery O2 Flow Rate FiO2 11/16/17 08:00 96.3 86 17 128/80 97 11/16/17 04:00 97.6 88 18 123/76 91 11/16/17 04:00 Nasal Cannula 2.0 11/16/17 00:00 97.6 82 18 101/59 98 11/16/17 00:00 Nasal Cannula 2.0 11/15/17 20:00 98.8 97 20 120/73 97 11/15/17 20:00 97 Nasal Cannula 2.0 11/15/17 17:00 97.7 95 20 118/67 99 11/15/17 16:30 98.3 80 17 130/82 98 Nasal Cannula 3.0 11/15/17 16:20 76 16 126/86 98 Nasal Cannula 3.0 11/15/17 16:14 80 16 128/78 98 Simple Mask 6.0 11/15/17 16:09 80 16 128/78 98 Simple Mask 6.0 11/15/17 16:04 98.5 81 13 125/82 98 Simple Mask 6.0 11/15/17 16:02 84 18 99 11/15/17 16:01 81 16 98 11/15/17 11:37 98.4 74 20 107/59 95 I&O Intake and Output 11/15/17 11/16/17 19:00 07:00 Intake Total 1400 ml 240 ml Output Total 10 ml Balance 1390 ml 240 ml Intake Oral 240 ml IV Total 1400 ml Output Estimated Blood Loss 10 ml # Voids 1 Drains: none Cardiovascular: RSR Respiratory: clear Abdomen: soft, non-tender, present bowel sounds Extremities: no tenderness Laboratory Tests Test 11/15/17 11:00 11/16/17 07:00 White Blood Count 14.0 K/UL (4.8-10.8) #H 8.5 K/UL (4.8-10.8) Red Blood Count 3.55 M/UL (4.70-6.10) L 3.40 M/UL (4.70-6.10) L Hemoglobin 11.4 G/DL (14.2-18.0) L 11.3 G/DL (14.2-18.0) L Hematocrit 34.0 % (42.0-52.0) L 33.1 % (42.0-52.0) L Mean Corpuscular Volume 96 FL (80-99) 97 FL (80-99) Mean Corpuscular Hemoglobin 32.2 PG (27.0-31.0) H 33.2 PG (27.0-31.0) H Mean Corpuscular Hemoglobin Concent 33.6 G/DL (32.0-36.0) 34.1 G/DL (32.0-36.0) Red Cell Distribution Width 11.6 % (11.6-14.8) 11.6 % (11.6-14.8) Platelet Count 172 K/UL (150-450) 159 K/UL (150-450) Mean Platelet Volume 8.0 FL (6.5-10.1) 7.7 FL (6.5-10.1) Neutrophils (%) (Auto) 84.5 % (45.0-75.0) H 77.8 % (45.0-75.0) H Lymphocytes (%) (Auto) 6.3 % (20.0-45.0) L 10.3 % (20.0-45.0) L Monocytes (%) (Auto) 9.0 % (1.0-10.0) 11.7 % (1.0-10.0) H Eosinophils (%) (Auto) 0.0 % (0.0-3.0) 0.1 % (0.0-3.0) Basophils (%) (Auto) 0.2 % (0.0-2.0) 0.1 % (0.0-2.0) Sodium Level 133 MMOL/L (136-145) L Pending Potassium Level 4.1 MMOL/L (3.5-5.1) Pending Chloride Level 100 MMOL/L (98-107) Pending Carbon Dioxide Level 25 MMOL/L (21-32) Pending Anion Gap 8 mmol/L (5-15) Blood Urea Nitrogen 19 mg/dL (7-18) H Pending Creatinine 1.8 MG/DL (0.55-1.30) H Pending Estimat Glomerular Filtration Rate mL/min (>60) Pending Glucose Level 120 MG/DL (74-106) #H Pending Calcium Level 7.7 MG/DL (8.5-10.1) L Pending Total Bilirubin 3.3 MG/DL (0.2-1.0) H Pending Direct Bilirubin 2.8 MG/DL (0.0-0.3) H Aspartate Amino Transf (AST/SGOT) 79 U/L (15-37) H Pending Alanine Aminotransferase (ALT/SGPT) 43 U/L (12-78) Pending Alkaline Phosphatase 209 U/L (46-116) H Pending Total Protein 7.5 G/DL (6.4-8.2) Pending Albumin 2.7 G/DL (3.4-5.0) L Pending Globulin 4.8 g/dL Pending Albumin/Globulin Ratio 0.6 (1.0-2.7) L Plan Problems: (1) Choledocholithiasis with acute cholecystitis with obstruction Assessment & Plan: 72M with acute cholecystitis and choledocholithiasis. admitted with leukocytosis 29k, elevated t bili/lft's, CT with obstructing stone , ultrasound with distended gallbladder/stones. Had ERCP yesterday with successful clearance of duct. leukocytosis resolved. pending other labs. on ERCP films noted that gallbladder did not fill at all. this can happen at times but given CT and ultrasound findings of a very distended gallbladder there is suspicion for possible cystic duct obstruction. -HIDA today -if positive will need cholecystectomy either today or tomorrow -if negative can be done electively as an outpatient -appreciate GI input -Abx as per ID -trend labs thank you for this consultation. will follow with you. Colt Galindo Nov 16, 2017 09:13
--- NOTE | 2017-11-16 09:13 | Consultation ---
History of Present Illness General Date patient seen: Nov 16, 2017 Chief Complaint: Referring physician: Reason for Consultation: Present Illness Allergies: Coded Allergies: No Known Allergies (Unverified , 11/14/17) Medication History Miscellaneous Medications Unable to Obtain Medications (Unable To Obtain Meds), Unknown Dose, (Reported) Patient History Healthcare decision maker Resuscitation status Full Code Advanced Directive on File No Physical Exam Last 24 Hour Vital Signs Date Time Temp Pulse Resp B/P (MAP) Pulse Ox O2 Delivery O2 Flow Rate FiO2 11/16/17 08:00 96.3 86 17 128/80 97 11/16/17 04:00 97.6 88 18 123/76 91 11/16/17 04:00 Nasal Cannula 2.0 11/16/17 00:00 97.6 82 18 101/59 98 11/16/17 00:00 Nasal Cannula 2.0 11/15/17 20:00 98.8 97 20 120/73 97 11/15/17 20:00 97 Nasal Cannula 2.0 11/15/17 17:00 97.7 95 20 118/67 99 11/15/17 16:30 98.3 80 17 130/82 98 Nasal Cannula 3.0 11/15/17 16:20 76 16 126/86 98 Nasal Cannula 3.0 11/15/17 16:14 80 16 128/78 98 Simple Mask 6.0 11/15/17 16:09 80 16 128/78 98 Simple Mask 6.0 11/15/17 16:04 98.5 81 13 125/82 98 Simple Mask 6.0 11/15/17 16:02 84 18 99 11/15/17 16:01 81 16 98 11/15/17 11:37 98.4 74 20 107/59 95 Intake and Output 11/15/17 11/16/17 19:00 07:00 Intake Total 1400 ml 240 ml Output Total 10 ml Balance 1390 ml 240 ml Intake Oral 240 ml IV Total 1400 ml Output Estimated Blood Loss 10 ml # Voids 1 Laboratory Tests Test 11/15/17 11:00 11/16/17 07:00 White Blood Count 14.0 K/UL (4.8-10.8) #H 8.5 K/UL (4.8-10.8) Red Blood Count 3.55 M/UL (4.70-6.10) L 3.40 M/UL (4.70-6.10) L Hemoglobin 11.4 G/DL (14.2-18.0) L 11.3 G/DL (14.2-18.0) L Hematocrit 34.0 % (42.0-52.0) L 33.1 % (42.0-52.0) L Mean Corpuscular Volume 96 FL (80-99) 97 FL (80-99) Mean Corpuscular Hemoglobin 32.2 PG (27.0-31.0) H 33.2 PG (27.0-31.0) H Mean Corpuscular Hemoglobin Concent 33.6 G/DL (32.0-36.0) 34.1 G/DL (32.0-36.0) Red Cell Distribution Width 11.6 % (11.6-14.8) 11.6 % (11.6-14.8) Platelet Count 172 K/UL (150-450) 159 K/UL (150-450) Mean Platelet Volume 8.0 FL (6.5-10.1) 7.7 FL (6.5-10.1) Neutrophils (%) (Auto) 84.5 % (45.0-75.0) H 77.8 % (45.0-75.0) H Lymphocytes (%) (Auto) 6.3 % (20.0-45.0) L 10.3 % (20.0-45.0) L Monocytes (%) (Auto) 9.0 % (1.0-10.0) 11.7 % (1.0-10.0) H Eosinophils (%) (Auto) 0.0 % (0.0-3.0) 0.1 % (0.0-3.0) Basophils (%) (Auto) 0.2 % (0.0-2.0) 0.1 % (0.0-2.0) Sodium Level 133 MMOL/L (136-145) L Pending Potassium Level 4.1 MMOL/L (3.5-5.1) Pending Chloride Level 100 MMOL/L (98-107) Pending Carbon Dioxide Level 25 MMOL/L (21-32) Pending Anion Gap 8 mmol/L (5-15) Blood Urea Nitrogen 19 mg/dL (7-18) H Pending Creatinine 1.8 MG/DL (0.55-1.30) H Pending Estimat Glomerular Filtration Rate mL/min (>60) Pending Glucose Level 120 MG/DL (74-106) #H Pending Calcium Level 7.7 MG/DL (8.5-10.1) L Pending Total Bilirubin 3.3 MG/DL (0.2-1.0) H Pending Direct Bilirubin 2.8 MG/DL (0.0-0.3) H Aspartate Amino Transf (AST/SGOT) 79 U/L (15-37) H Pending Alanine Aminotransferase (ALT/SGPT) 43 U/L (12-78) Pending Alkaline Phosphatase 209 U/L (46-116) H Pending Total Protein 7.5 G/DL (6.4-8.2) Pending Albumin 2.7 G/DL (3.4-5.0) L Pending Globulin 4.8 g/dL Pending Albumin/Globulin Ratio 0.6 (1.0-2.7) L Height (Feet): 6 Height (Inches): 1.00 Weight (Pounds): 174 Medications Current Medications Medications (Trade) Dose Ordered Sig/Bree Route PRN Reason Start Time Stop Time Status Last Admin Dose Admin Acetaminophen/ Hydrocodone Bitart ([place] 5/325) 1 tab Q8H PRN ORAL Severe Pain (Pain Scale 7-10) 11/15/17 05:15 11/22/17 05:14 11/15/17 17:16 Amlodipine Besylate (Norvasc) 10 mg DAILY ORAL 11/16/17 09:00 12/16/17 08:59 Aspirin (ASA) 81 mg DAILY NG 11/16/17 09:00 12/16/17 08:59 Ceftriaxone Sodium 1 gm/ Dextrose 55 ml @ 110 mls/hr Q24H IVPB 11/15/17 13:00 11/22/17 12:59 11/15/17 17:17 HCTZ/Losartan Potassium (Hyzaar 50-12.5) 1 tab DAILY ORAL 11/16/17 09:00 12/16/17 08:59 Heparin Sodium (Porcine) (Heparin 5000 units/ml) 5,000 units EVERY 12 HOURS SUBQ 11/15/17 09:00 12/15/17 08:59 11/15/17 21:43 Hydromorphone HCl (Dilaudid) 2 mg Q6H PRN IVP Severe Pain (>7) 11/15/17 20:15 11/22/17 20:14 11/16/17 04:06 Ibuprofen (Motrin) 600 mg Q8H PRN ORAL For Pain 11/16/17 04:30 12/16/17 04:29 Metronidazole 100 ml @ 100 mls/hr Q8HR IVPB 11/15/17 18:00 11/22/17 17:59 11/16/17 05:29 Morphine Sulfate (Morphine Sulfate) 1 mg Q8H PRN IVP Breakthrough Pain 11/15/17 18:30 11/22/17 18:29 11/15/17 18:47 Ondansetron HCl (Zofran) 4 mg Q6H PRN IVP Nausea & Vomiting 11/15/17 05:15 12/15/17 05:14 Sodium Chloride 1,000 ml @ 150 mls/hr Q6H40M IV 11/15/17 05:15 12/15/17 05:14 11/16/17 05:28 Tamsulosin HCl (Flomax) 0.4 mg BEDTIME ORAL 11/16/17 21:00 12/16/17 20:59 Assessment/Plan Assessment/Plan (1) Intractable abdominal Pain (2) Choledocholithiasis (3) Cholangitis Seem dictated. TAMARA ACEVEDO PMarisol Nov 16, 2017 09:13
[2017-11-16 09:14] LABS: ALANINE AMINOTRANSFERASE 48 U/L (12-78); ALBUMIN 2.6 G/DL (3.4-5.0); ALBUMIN/GLOBULIN RATIO 0.5 (1.0-2.7); ALKALINE PHOSPHATASE 213 U/L (46-116); ANION GAP 10 mmol/L (5-15); ASPARTATE AMINO TRANSFERASE 64 U/L (15-37); BILIRUBIN,TOTAL 2.4 MG/DL (0.2-1.0); BLOOD UREA NITROGEN 18 mg/dL (7-18); CALCIUM 7.5 MG/DL (8.5-10.1); CARBON DIOXIDE 23 MMOL/L (21-32); CHLORIDE 101 MMOL/L (98-107); CREATININE 1.5 MG/DL (0.55-1.30); POTASSIUM 4.1 MMOL/L (3.5-5.1); SODIUM 134 MMOL/L (136-145)
[2017-11-16 09:16] LABS: BILIRUBIN,DIRECT 1.9 MG/DL (0.0-0.3)
--- NOTE | 2017-11-16 10:24 | GI Progress Note ---
Assessment/Plan Problems: (1) Cholecystitis ICD Codes: K81.9 - Cholecystitis SNOMED: 98172056 (2) Choledocholithiasis with acute cholecystitis with obstruction ICD Codes: K80.41 - Calculus of bile duct with cholecystitis, unspecified, with obstruction SNOMED: 29238225 Status: progressing Status Narrative Discussed with Dr. Nelson. Assessment/Plan s/p ERCP SUMMARY OF FINDINGS: 1. Choledocholithiasis. 2. Short distal biliary stricture. 3. Status post endoscopic retrograde cholangiopancreatography with sphincterotomy, dilation, biopsy, and stenting. RECOMMENDATIONS: NPO for HIDA today, diet per surgery. Follow up biopsy results and treat accordingly. The patient is to come back in three months for removal of the stent and may need repeat biopsies. abx fu labs Subjective Gastrointestinal/Abdominal: Reports: no symptoms Subjective abdominal pain improved overall feels good Objective Last 24 Hour Vital Signs Date Time Temp Pulse Resp B/P (MAP) Pulse Ox O2 Delivery O2 Flow Rate FiO2 11/16/17 08:00 96.3 86 17 128/80 97 11/16/17 04:00 97.6 88 18 123/76 91 11/16/17 04:00 Nasal Cannula 2.0 11/16/17 00:00 97.6 82 18 101/59 98 11/16/17 00:00 Nasal Cannula 2.0 11/15/17 20:00 98.8 97 20 120/73 97 11/15/17 20:00 97 Nasal Cannula 2.0 11/15/17 17:00 97.7 95 20 118/67 99 11/15/17 16:30 98.3 80 17 130/82 98 Nasal Cannula 3.0 11/15/17 16:20 76 16 126/86 98 Nasal Cannula 3.0 11/15/17 16:14 80 16 128/78 98 Simple Mask 6.0 11/15/17 16:09 80 16 128/78 98 Simple Mask 6.0 11/15/17 16:04 98.5 81 13 125/82 98 Simple Mask 6.0 11/15/17 16:02 84 18 99 11/15/17 16:01 81 16 98 11/15/17 11:37 98.4 74 20 107/59 95 Intake and Output 11/15/17 11/16/17 19:00 07:00 Intake Total 1400 ml 240 ml Output Total 10 ml Balance 1390 ml 240 ml Intake Oral 240 ml IV Total 1400 ml Output Estimated Blood Loss 10 ml # Voids 1 Laboratory Tests Test 11/15/17 11:00 11/16/17 07:00 White Blood Count 14.0 K/UL (4.8-10.8) #H 8.5 K/UL (4.8-10.8) Red Blood Count 3.55 M/UL (4.70-6.10) L 3.40 M/UL (4.70-6.10) L Hemoglobin 11.4 G/DL (14.2-18.0) L 11.3 G/DL (14.2-18.0) L Hematocrit 34.0 % (42.0-52.0) L 33.1 % (42.0-52.0) L Mean Corpuscular Volume 96 FL (80-99) 97 FL (80-99) Mean Corpuscular Hemoglobin 32.2 PG (27.0-31.0) H 33.2 PG (27.0-31.0) H Mean Corpuscular Hemoglobin Concent 33.6 G/DL (32.0-36.0) 34.1 G/DL (32.0-36.0) Red Cell Distribution Width 11.6 % (11.6-14.8) 11.6 % (11.6-14.8) Platelet Count 172 K/UL (150-450) 159 K/UL (150-450) Mean Platelet Volume 8.0 FL (6.5-10.1) 7.7 FL (6.5-10.1) Neutrophils (%) (Auto) 84.5 % (45.0-75.0) H 77.8 % (45.0-75.0) H Lymphocytes (%) (Auto) 6.3 % (20.0-45.0) L 10.3 % (20.0-45.0) L Monocytes (%) (Auto) 9.0 % (1.0-10.0) 11.7 % (1.0-10.0) H Eosinophils (%) (Auto) 0.0 % (0.0-3.0) 0.1 % (0.0-3.0) Basophils (%) (Auto) 0.2 % (0.0-2.0) 0.1 % (0.0-2.0) Sodium Level 133 MMOL/L (136-145) L 134 MMOL/L (136-145) L Potassium Level 4.1 MMOL/L (3.5-5.1) 4.1 MMOL/L (3.5-5.1) Chloride Level 100 MMOL/L (98-107) 101 MMOL/L (98-107) Carbon Dioxide Level 25 MMOL/L (21-32) 23 MMOL/L (21-32) Anion Gap 8 mmol/L (5-15) 10 mmol/L (5-15) Blood Urea Nitrogen 19 mg/dL (7-18) H 18 mg/dL (7-18) Creatinine 1.8 MG/DL (0.55-1.30) H 1.5 MG/DL (0.55-1.30) H Estimat Glomerular Filtration Rate mL/min (>60) mL/min (>60) Glucose Level 120 MG/DL (74-106) #H 120 MG/DL (74-106) H Calcium Level 7.7 MG/DL (8.5-10.1) L 7.5 MG/DL (8.5-10.1) L Total Bilirubin 3.3 MG/DL (0.2-1.0) H 2.4 MG/DL (0.2-1.0) H Direct Bilirubin 2.8 MG/DL (0.0-0.3) H 1.9 MG/DL (0.0-0.3) H Aspartate Amino Transf (AST/SGOT) 79 U/L (15-37) H 64 U/L (15-37) H Alanine Aminotransferase (ALT/SGPT) 43 U/L (12-78) 48 U/L (12-78) Alkaline Phosphatase 209 U/L (46-116) H 213 U/L (46-116) H Total Protein 7.5 G/DL (6.4-8.2) 7.6 G/DL (6.4-8.2) Albumin 2.7 G/DL (3.4-5.0) L 2.6 G/DL (3.4-5.0) L Globulin 4.8 g/dL 5.0 g/dL Albumin/Globulin Ratio 0.6 (1.0-2.7) L 0.5 (1.0-2.7) L Height (Feet): 6 Height (Inches): 1.00 Weight (Pounds): 174 General Appearance: WD/WN, no apparent distress, alert Cardiovascular: normal rate Respiratory/Chest: normal breath sounds, no respiratory distress Abdominal Exam: normal bowel sounds, non tender, soft Extremities: normal range of motion, non-tender Beatriz Lala N.P. Nov 16, 2017 10:24
--- NOTE | 2017-11-16 11:21 | Infectious Diseases Prog Note ---
Assessment/Plan Assessment/Plan Abx: Zosyn x1 11/15 Ceftriaxone/Flagyl 11/15- Assessment: Leukocytosis, resolved- ?2ry to cholangitis vs reactive -afebrile Pulmonary opacities-likely 2ry to scarring- patient with no cough- doubt PNA -CT chest: Bilateral apical parenchymal scarring, presumably accounting for the opacities demonstrated on recent chest radiograph. Findings do not appear suspicious for neoplasm, although underlying mass lesion cannot be completely ruled out. COPD changes. Other areas of postinflammatory change, as described. Indeterminate solid pulmonary nodule measuring 5 mm. In a high-risk patient with a solid nodule <6 mm, CT at 12 months is optional with stronger consideration if there is suspicious nodule morphology and/or upper lobe location. -CXR: Bilateral apical opacities, probably on the basis of scarring but mass or infiltrate not excludable. -influenza neg Choledocholithiasis and cholelithiasis, possible cholangitis s/p ERCP w/ agioplasty ballon and stent placement 11/15 -findings: opacification of dilated common bile duct and common hepatic duct as well as mildly dilated central intrahepatic bile ducts. Small intraluminal filling defects are consistent with small common bile duct calculi. -CT abd/p: Cholelithiasis and choledocholithiasis. Biliary ductal dilatation is concerning for common bile duct obstruction, most likely due to the choledocholithiasis, much less likely due to pancreatic mass. Consider MRCP for better characterization if clinically indicated. Evidence of chronic calcifying pancreatitis. COPD changes of the lung bases. Nonspecific interstitial septal thickening and reticular opacities. Unusual fat stranding surrounding the adrenals. Correlate with adrenal function. Unusual opacities over the right kidney, may indicate prior surgery. Pagetoid changes of the right pelvis -Abd US: Cholelithiasis, also described on recent CT. No secondary signs of acute cholecystitis. Biliary ductal dilatation. Probably related to choledocholithiasis better seen on recent CT scan Elevated LFTs, ALB. Bili- 2ry to above; improving PARAS- improving HTN Plan: -Continue Ceftriaxone and Flagyl #2/7 for possible cholangitis ; upon discharge can be transitioned to PO Cipro and Flagyl. -11/15 SP Zosyn x1 -f/u cx -Monitor CBC/CMP, temperatures -aspiration precautions Thank you for this consultation. Will continue to follow along with you. Discussed with RN. Subjective Allergies: Coded Allergies: No Known Allergies (Unverified , 11/14/17) Subjective afebrile leukocytosis resolved s/p ERCP with stone removal and stent placement yesterday Objective Vital Signs Last 24 Hour Vital Signs Date Time Temp Pulse Resp B/P (MAP) Pulse Ox O2 Delivery O2 Flow Rate FiO2 11/16/17 08:00 96.3 86 17 128/80 97 11/16/17 04:00 97.6 88 18 123/76 91 11/16/17 04:00 Nasal Cannula 2.0 11/16/17 00:00 97.6 82 18 101/59 98 11/16/17 00:00 Nasal Cannula 2.0 11/15/17 20:00 98.8 97 20 120/73 97 11/15/17 20:00 97 Nasal Cannula 2.0 11/15/17 17:00 97.7 95 20 118/67 99 11/15/17 16:30 98.3 80 17 130/82 98 Nasal Cannula 3.0 11/15/17 16:20 76 16 126/86 98 Nasal Cannula 3.0 11/15/17 16:14 80 16 128/78 98 Simple Mask 6.0 11/15/17 16:09 80 16 128/78 98 Simple Mask 6.0 11/15/17 16:04 98.5 81 13 125/82 98 Simple Mask 6.0 11/15/17 16:02 84 18 99 11/15/17 16:01 81 16 98 11/15/17 11:37 98.4 74 20 107/59 95 Height (Feet): 6 Height (Inches): 1.00 Weight (Pounds): 174 Objective General Appearance: well appearing, no apparent distress, alert] HEENT: normocephalic, PERRL/EOMI, normal ENT inspection Neck: supple Respiratory: normal breath sounds, no respiratory distress Cardiovascular: normal rate Gastrointestinal: normal inspection, non tender, soft, normal bowel sounds, non -distended Musculoskeletal: normal inspection, back normal Neurologic: normal inspection, alert, oriented x3, responsive Psychiatric: normal inspection, judgement/insight normal, memory normal Skin: normal inspection, normal color, no rash, warm/dry, palpation normal, well hydrated Lymphatic: normal inspection, no adenopathy Microbiology Date/Time Source Procedure Growth Status 11/14/17 21:50 Nasal Nares Influenza Types A,B Antigen (MARIANA) - Final Complete Laboratory Tests Test 11/16/17 07:00 White Blood Count 8.5 K/UL (4.8-10.8) Red Blood Count 3.40 M/UL (4.70-6.10) L Hemoglobin 11.3 G/DL (14.2-18.0) L Hematocrit 33.1 % (42.0-52.0) L Mean Corpuscular Volume 97 FL (80-99) Mean Corpuscular Hemoglobin 33.2 PG (27.0-31.0) H Mean Corpuscular Hemoglobin Concent 34.1 G/DL (32.0-36.0) Red Cell Distribution Width 11.6 % (11.6-14.8) Platelet Count 159 K/UL (150-450) Mean Platelet Volume 7.7 FL (6.5-10.1) Neutrophils (%) (Auto) 77.8 % (45.0-75.0) H Lymphocytes (%) (Auto) 10.3 % (20.0-45.0) L Monocytes (%) (Auto) 11.7 % (1.0-10.0) H Eosinophils (%) (Auto) 0.1 % (0.0-3.0) Basophils (%) (Auto) 0.1 % (0.0-2.0) Sodium Level 134 MMOL/L (136-145) L Potassium Level 4.1 MMOL/L (3.5-5.1) Chloride Level 101 MMOL/L (98-107) Carbon Dioxide Level 23 MMOL/L (21-32) Anion Gap 10 mmol/L (5-15) Blood Urea Nitrogen 18 mg/dL (7-18) Creatinine 1.5 MG/DL (0.55-1.30) H Estimat Glomerular Filtration Rate mL/min (>60) Glucose Level 120 MG/DL (74-106) H Calcium Level 7.5 MG/DL (8.5-10.1) L Total Bilirubin 2.4 MG/DL (0.2-1.0) H Direct Bilirubin 1.9 MG/DL (0.0-0.3) H Aspartate Amino Transf (AST/SGOT) 64 U/L (15-37) H Alanine Aminotransferase (ALT/SGPT) 48 U/L (12-78) Alkaline Phosphatase 213 U/L (46-116) H Total Protein 7.6 G/DL (6.4-8.2) Albumin 2.6 G/DL (3.4-5.0) L Globulin 5.0 g/dL Albumin/Globulin Ratio 0.5 (1.0-2.7) L Current Medications Medications (Trade) Dose Ordered Sig/Bree Route PRN Reason Start Time Stop Time Status Last Admin Dose Admin Acetaminophen/ Hydrocodone Bitart ([place] 10/325) 1 ea Q6H PRN ORAL moderate pain 4-6 11/16/17 09:30 11/23/17 09:29 Amlodipine Besylate (Norvasc) 10 mg DAILY ORAL 11/16/17 09:00 12/16/17 08:59 Aspirin (ASA) 81 mg DAILY NG 11/16/17 09:00 12/16/17 08:59 Ceftriaxone Sodium 1 gm/ Dextrose 55 ml @ 110 mls/hr Q24H IVPB 11/15/17 13:00 11/22/17 12:59 11/15/17 17:17 HCTZ/Losartan Potassium (Hyzaar 50-12.5) 1 tab DAILY ORAL 11/16/17 09:00 12/16/17 08:59 Heparin Sodium (Porcine) (Heparin 5000 units/ml) 5,000 units EVERY 12 HOURS SUBQ 11/15/17 09:00 12/15/17 08:59 11/15/17 21:43 Hydromorphone HCl (Dilaudid) 1 mg Q4H PRN IVP severe pain 7-10 11/16/17 09:30 11/22/17 20:14 Ibuprofen (Motrin) 600 mg Q8H PRN ORAL mild pain 1-3 11/16/17 12:30 12/16/17 12:29 Metronidazole 100 ml @ 100 mls/hr Q8HR IVPB 11/15/17 18:00 11/22/17 17:59 11/16/17 05:29 Ondansetron HCl (Zofran) 4 mg Q6H PRN IVP Nausea & Vomiting 11/15/17 05:15 12/15/17 05:14 Sodium Chloride 1,000 ml @ 150 mls/hr Q6H40M IV 11/15/17 05:15 12/15/17 05:14 11/16/17 05:28 Tamsulosin HCl (Flomax) 0.4 mg BEDTIME ORAL 11/16/17 21:00 12/16/17 20:59 Lidia Grimaldo M.D. Nov 16, 2017 11:21
[2017-11-16 12:05] VITALS: BP 130/80
--- NOTE | 2017-11-16 13:30 | History and Physical Report ---
DATE OF ADMISSION: 11/15/2017 NOTE: POOR AUDIO INTERNAL MEDICINE HISTORY AND PHYSICAL Covering for Dr. Melo. HISTORY OF PRESENT ILLNESS: The patient is a pleasant 72-year-old male with past medical history significant for hypertension, at this time presents to ER nausea and vomiting. WBC is elevated alkaline phosphatase. CAT scan of the abdomen and pelvis showed potential evidence of choledocholithiasis, had consulted ID Service. The patient received Zosyn ERCP and prior GI Service. CAT scan is pending. GI Services has also been consulted and ERCP to be completed. Imaging reviewed present with a small common bile duct stent deployment being noted. procedure is still pending, which will be reviewed in the morning. The patient has also been seen by Surgical Service. . At this time, he recommends ERCP resolved. PAST MEDICAL HISTORY: As noted above. ALLERGIES: No known drug allergies. SOCIAL HISTORY: No tobacco, alcohol, or illicit drug use. FAMILY HISTORY: Noncontributory. REVIEW OF SYSTEMS: A 12-point review of systems is otherwise negative. PHYSICAL EXAMINATION: GENERAL: No acute distress. VITAL SIGNS: Reviewed. PULMONARY: Decreased breath sounds. CARDIOVASCULAR: Regular rate. No S3 or S4. ABDOMEN: Soft, nontender, and nondistended. EXTREMITIES: No cyanosis, clubbing, or edema. LABORATORY DATA: WBC 18,000, hemoglobin 9.4, hematocrit 34, and platelets 172,000. BUN 19 and creatinine 1.8. Total protein . Alkaline phosphatase 200. ASSESSMENT AND RECOMMENDATIONS: 1. Choledocholithiasis, potentially right upper quadrant pain, has been seen by GI Service and ID Service. 2. Status post endoscopic retrograde cholangiopancreatography, stent deployment. come down. Currently hemodynamically stable. Consider cholecystectomy as an outpatient. 3. Nausea and vomiting, likely due to blood issues. 4. Acute kidney injury, to be seen by Nephrology Service. 5. Hyponatremia and hypocalcemia has to be managed closely. 6. Leukocytosis sepsis. Again, has been seen by ID Service. Start antibiotics, broad-spectrum. 7. Choledocholithiasis, status post . I appreciate the product/industry consultant care. Luis Frausto M.D. DR: TAO JOB#: [id number] CC:
--- NOTE | 2017-11-16 13:40 | Diagnostic Imaging Report ---
Indication: Abdominal Pain Technique: 5.4 mCi of technetium 99 m-Choletec was injected intravenously. Planar imaging of the abdomen was then performed every 5 minutes up to 30 minutes and every 10 minutes up to one hour. Oblique views were also obtained. Findings: There is prompt uptake within the liver with little to no washout of radiotracer from the liver on subsequent imaging. There is little to no excretion into the biliary ducts within the first hour. At 2.5 hours, there is tracer activity within prominent hepatic biliary ducts and the upper CBD. Some tracer is noted now within bowel. There is no gallbladder activity indicative of cystic duct obstruction. At 2.5 hours, there is much more than expected tracer within the hepatic parenchyma indicative of cholestasis. The findings indicate partial biliary obstruction likely at the CBD level with some tracer entering small bowel. Impression: Partial biliary obstruction with evidence of significant impediment to biliary flow likely at the level of the CBD. Cystic duct obstruction with nonvisualization of the gallbladder. Cholecystitis suspected.
--- NOTE | 2017-11-16 13:44 | Pre-Procedure Note/Attestation ---
Pre-Procedure Note/Attestation Complete Prior to Procedure Procedure Narrative: laparoscopic cholecystectomy possible open Indications for Procedure Pre-Operative Diagnosis: acute cholecystitis with choledocholithiasis and non visualization of GB on HIDA with cystic duct obstruction Attestation I attest that I discussed the nature of the procedure; its benefits; risks and complications; and alternatives (and the risks and benefits of such alternatives ), prior to the procedure, with the patient (or the patient's legal manufacturer representative). I attest that, if there was a reasonable possibility of needing a blood transfusion, the patient (or the patient's legal manufacturer representative) was given the [facility] standardized written summary, pursuant to the Josue Wilian Blood Safety Act ([place] Health and Safety Code # 1645, as amended). I attest that I re-evaluated the patient just prior to the surgery and that there has been no change in the patient's H&P, except as documented below: Colt Galindo Nov 16, 2017 13:44
[2017-11-16] MEDS: cefTRIAXone 1 GM in D5W 55 ML IVPB SCH (13:49)
[2017-11-16] MEDS: HYDROcodone/Acetamin 10/325 tab ORAL PRN (15:56)
--- NOTE | 2017-11-16 16:45 | Consultation ---
DATE OF CONSULTATION: 11/16/2017 PAIN MANAGEMENT CONSULTATION CONSULTING PHYSICIAN: Jose Crenshaw M.D. REFERRING PHYSICIAN: Luis Frausto M.D. PHYSICIAN STAFF CLIMATE SCIENTIST: Jed Candelario CHIEF COMPLAINT: Abdominal pain. HISTORY OF PRESENT ILLNESS: This is a 72-year-old male, who is being seen on the telemetry floor of [facility] for initial comprehensive pain management consultation. The patient is reporting that he has been having abdominal pain for the past four days. The pain is acute, rating at 10/10, describing as a stabbing pain, which has been reduced with medication. The patient reports that he was admitted into the hospital under the care of Dr. Frausto, seen by Dr. Galindo and Dr. Nelson, underwent an ERCP, found to have cholelithiasis and cholangitis causing intractable abdominal pain. He was started on a Zumbrota 5/325 mg one tablet every eight hours as needed for severe pain and morphine 1 mg IV every four hours as needed for breakthrough pain and Dilaudid 2 mg IV every six hours as needed for severe breakthrough pain. At this time, the patient is comfortable in the bed. Rating his pain at 5/10, controlled well on current medication regimen. We were consulted so that the patient would have adequate pain control while here in the hospital. PAST MEDICAL HISTORY: Hypertension and bronchitis. PAST SURGICAL HISTORY: Laparoscopic abdominal surgery. SOCIAL HISTORY: He is a drinker of alcohol and a smoker of tobacco. Denies IV drug abuse. ALLERGIES: No known drug allergies. MEDICATIONS: Flomax, aspirin, Uzair, Norvasc, Motrin, and Zofran. REVIEW OF SYSTEMS: Denies rash, fever, chills, sweating, dizziness, drowsiness, or change in his weight. No shortness of breath, chest pain, palpitations, or cough. No nausea, vomiting, diarrhea, or blood in the stool or urine. No bowel or bladder incontinence. No dysuria. He is complaining of abdominal pain. PHYSICAL EXAMINATION: GENERAL: Alert, awake, and oriented x3. VITAL SIGNS: Blood pressure 128/80, heart rate is 86, oxygen saturation 97%, respiratory rate is 17, temperature is 96.3 degrees Fahrenheit. HEENT: PERRLA. NECK: Range of motion is full in all directions. No tenderness to paracervical muscles. No adenopathy. LUNGS: Decreased breath sounds bilaterally. HEART: Regular. ABDOMEN: Tenderness to palpation. BACK: Range of motion is full on flexion and extension with tenderness to paraspinal muscles, trapezius, and rhomboid muscles. EXTREMITIES: Upper extremity range of motion is full in all directions. Motor is intact. No cyanosis. No clubbing. No edema. Sensory is intact. Reflexes are unobtainable. No adenopathy. Lower extremity range of motion is full in all directions. Motor is intact. No cyanosis. No clubbing. No edema. Sensory is intact. Reflexes are unobtainable. No adenopathy. ASSESSMENT AND PLAN: This is a 72-year-old male with intractable abdominal pain, choledocholithiasis, and cholangitis. The patient will be continued on Dilaudid 1 mg IV every four hours as needed for severe pain. We will discontinue the morphine and increase the Zumbrota to 10/325 one tablet every six hours as needed for moderate pain. The patient was discussed with Dr. Crenshaw and Dr. Crenshaw concurred. We will follow the patient. Thank you very much for the courtesy of this consultation. Jose Crenshaw M.D. TORO Candelario DR: MARIELLE JOB#: [id number] CC: TRACY
[2017-11-16 20:00] VITALS: BP 138/75
[2017-11-16] MEDS: Tamsulosin 0.4mg cap ORAL SCH (20:41)
--- NOTE | 2017-11-16 22:36 | General Progress Note ---
Assessment/Plan Assessment/Plan ASSESSMENT AND RECOMMENDATIONS: 1. Choledocholithiasis with right upper quadrant pain, has been seen by GI Service and ID Service. 2. Status post ercp with stent placement. Currently hemodynamically stable. 3. Nausea and vomiting 4. Acute kidney injury, to be seen by Nephrology Service. 5. Hyponatremia and hypocalcemia . 6. Leukocytosis, resolved 7. Anemia, currently mild Subjective Allergies: Coded Allergies: No Known Allergies (Unverified , 12/09/12) All Systems: reviewed and negative except above Subjective nad Objective Last 24 Hour Vital Signs Date Time Temp Pulse Resp B/P (MAP) Pulse Ox O2 Delivery O2 Flow Rate FiO2 11/16/17 20:00 97.9 93 18 138/75 96 Room Air 11/16/17 16:55 98.1 11/16/17 12:05 98.1 92 18 130/80 97 Room Air 11/16/17 08:00 96.3 86 17 128/80 97 11/16/17 04:00 97.6 88 18 123/76 91 11/16/17 04:00 Nasal Cannula 2.0 11/16/17 00:00 97.6 82 18 101/59 98 11/16/17 00:00 Nasal Cannula 2.0 Intake and Output 11/15/17 11/16/17 19:00 07:00 Intake Total 1400 ml 240 ml Output Total 10 ml Balance 1390 ml 240 ml Intake Oral 240 ml IV Total 1400 ml Output Estimated Blood Loss 10 ml # Voids 1 Laboratory Tests 11/16/17 07:00: White Blood Count 8.5, Red Blood Count 3.40L, Hemoglobin 11.3L, Hematocrit 33.1L , Mean Corpuscular Volume 97, Mean Corpuscular Hemoglobin 33.2H, Mean Corpuscular Hemoglobin Concent 34.1, Red Cell Distribution Width 11.6, Platelet Count 159, Mean Platelet Volume 7.7, Neutrophils (%) (Auto) 77.8H, Lymphocytes ( %) (Auto) 10.3L, Monocytes (%) (Auto) 11.7H, Eosinophils (%) (Auto) 0.1, Basophils (%) (Auto) 0.1, Sodium Level 134L, Potassium Level 4.1, Chloride Level 101, Carbon Dioxide Level 23, Anion Gap 10, Blood Urea Nitrogen 18, Creatinine 1.5H, Estimat Glomerular Filtration Rate , Glucose Level 120H, Calcium Level 7.5L, Total Bilirubin 2.4H, Direct Bilirubin 1.9H, Aspartate Amino Transf (AST/SGOT) 64H, Alanine Aminotransferase (ALT/SGPT) 48, Alkaline Phosphatase 213H, Total Protein 7.6, Albumin 2.6L, Globulin 5.0, Albumin/ Globulin Ratio 0.5L Height (Feet): 6 Height (Inches): 1.00 Weight (Pounds): 174 General Appearance: no apparent distress EENT: normal ENT inspection Neck: normal alignment Cardiovascular: normal peripheral pulses Abdomen: normal bowel sounds Extremities: normal range of motion 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
[2017-11-17] VITALS (15 sets, daily range): BP systolic 109–154; BP diastolic 68–100
[2017-11-17] MEDS: HYDROcodone/Acetamin 10/325 tab ORAL PRN ×2 (00:23→21:48)
[2017-11-17 07:34] LABS: BASOPHILS % (AUTO) 0.3 % (0.0-2.0); EOSINOPHILS % (AUTO) 0.2 % (0.0-3.0); HEMATOCRIT 31.7 % (42.0-52.0); LYMPHOCYTES % (AUTO) 24.4 % (20.0-45.0); MEAN CORPUSCULAR VOLUME 98 FL (80-99); MONOCYTES % (AUTO) 15.4 % (1.0-10.0); NEUTROPHILS % (AUTO) 59.8 % (45.0-75.0); PLATELET COUNT 147 K/UL (150-450); RED BLOOD COUNT 3.23 M/UL (4.70-6.10); RED CELL DISTRIBUTION WIDTH 11.7 % (11.6-14.8); WHITE BLOOD COUNT 5.6 K/UL (4.8-10.8)
[2017-11-17 08:00] LABS: ALANINE AMINOTRANSFERASE 37 U/L (12-78); ALBUMIN 2.5 G/DL (3.4-5.0); ALBUMIN/GLOBULIN RATIO 0.5 (1.0-2.7); ALKALINE PHOSPHATASE 196 U/L (46-116); ANION GAP 11 mmol/L (5-15); ASPARTATE AMINO TRANSFERASE 39 U/L (15-37); BLOOD UREA NITROGEN 9 mg/dL (7-18); CALCIUM 7.3 MG/DL (8.5-10.1); CARBON DIOXIDE 22 MMOL/L (21-32); CHLORIDE 101 MMOL/L (98-107); CREATININE 1.2 MG/DL (0.55-1.30); POTASSIUM 3.6 MMOL/L (3.5-5.1); SODIUM 134 MMOL/L (136-145)
[2017-11-17] MEDS: Hyzaar 12.5mg/50mg tab ORAL SCH (09:00)
--- NOTE | 2017-11-17 09:21 | Infectious Diseases Prog Note ---
Assessment/Plan Assessment/Plan Abx: Zosyn x1 11/15 Ceftriaxone/Flagyl 11/15- Assessment: Leukocytosis, resolved- likely 2ry to cholangitis and cholecystitis -afebrile Pulmonary opacities-likely 2ry to scarring- patient with no cough- doubt PNA -CT chest: Bilateral apical parenchymal scarring, presumably accounting for the opacities demonstrated on recent chest radiograph. Findings do not appear suspicious for neoplasm, although underlying mass lesion cannot be completely ruled out. COPD changes. Other areas of postinflammatory change, as described. Indeterminate solid pulmonary nodule measuring 5 mm. In a high-risk patient with a solid nodule <6 mm, CT at 12 months is optional with stronger consideration if there is suspicious nodule morphology and/or upper lobe location. -CXR: Bilateral apical opacities, probably on the basis of scarring but mass or infiltrate not excludable. -influenza neg Choledocholithiasis/cholelithiasis and acute cholecystitis, possible cholangitis s/p ERCP w/ angioplasty ballon and stent placement 11/15 -findings: opacification of dilated common bile duct and common hepatic duct as well as mildly dilated central intrahepatic bile ducts. Small intraluminal filling defects are consistent with small common bile duct calculi. -HIDA scan: Partial biliary obstruction with evidence of significant impediment to biliary flow likely at the level of the CBD. Cystic duct obstruction with nonvisualization of the gallbladder. Cholecystitis suspected. -CT abd/p: Cholelithiasis and choledocholithiasis. Biliary ductal dilatation is concerning for common bile duct obstruction, most likely due to the choledocholithiasis, much less likely due to pancreatic mass. Consider MRCP for better characterization if clinically indicated. Evidence of chronic calcifying pancreatitis. COPD changes of the lung bases. Nonspecific interstitial septal thickening and reticular opacities. Unusual fat stranding surrounding the adrenals. Correlate with adrenal function. Unusual opacities over the right kidney, may indicate prior surgery. Pagetoid changes of the right pelvis -Abd US: Cholelithiasis, also described on recent CT. No secondary signs of acute cholecystitis. Biliary ductal dilatation. Probably related to choledocholithiasis better seen on recent CT scan Elevated LFTs, ALB. Bili- 2ry to above; improving PARAS- improving HTN Plan: -Continue Ceftriaxone and Flagyl #3/7 for cholangitis and cholecysitis ; upon discharge can be transitioned to PO Cipro and Flagyl. -12/28 SP Sapphire x1 -for cholecystectomy today -f/u cx -Monitor CBC/CMP, temperatures -aspiration precautions Thank you for this consultation. Will continue to follow along with you. Discussed with RN. Subjective Allergies: Coded Allergies: No Known Allergies (Unverified , 12/09/12) Subjective afebrile leukocytosis resolved for cholecystectomy today Objective Vital Signs Last 24 Hour Vital Signs Date Time Temp Pulse Resp B/P (MAP) Pulse Ox O2 Delivery O2 Flow Rate FiO2 11/17/17 08:32 97.5 75 20 124/69 98 Room Air 11/17/17 04:00 97.7 82 18 120/68 96 Room Air 11/17/17 00:00 98.2 78 18 121/69 99 Room Air 11/16/17 20:00 97.9 93 18 138/75 96 Room Air 11/16/17 16:55 98.1 11/16/17 12:05 98.1 92 18 130/80 97 Room Air Height (Feet): 6 Height (Inches): 1.00 Weight (Pounds): 174 Objective General Appearance: well appearing, no apparent distress, alert] HEENT: normocephalic, PERRL/EOMI, normal ENT inspection Neck: supple Respiratory: normal breath sounds, no respiratory distress Cardiovascular: normal rate Gastrointestinal: normal inspection, non tender, soft, normal bowel sounds, non -distended Musculoskeletal: normal inspection, back normal Neurologic: normal inspection, alert, oriented x3, responsive Psychiatric: normal inspection, judgement/insight normal, memory normal Skin: normal inspection, normal color, no rash, warm/dry, palpation normal, well hydrated Lymphatic: normal inspection, no adenopathy Microbiology Date/Time Source Procedure Growth Status 11/15/17 21:15 Blood Blood Culture - Preliminary NO GROWTH AFTER 24 HOURS Resulted 11/15/17 21:00 Blood Blood Culture - Preliminary NO GROWTH AFTER 24 HOURS Resulted 11/14/17 21:50 Nasal Nares Influenza Types A,B Antigen (MARIANA) - Final Complete Laboratory Tests Test 11/17/17 06:35 White Blood Count 5.6 K/UL (4.8-10.8) Red Blood Count 3.23 M/UL (4.70-6.10) L Hemoglobin 11.0 G/DL (14.2-18.0) L Hematocrit 31.7 % (42.0-52.0) L Mean Corpuscular Volume 98 FL (80-99) Mean Corpuscular Hemoglobin 34.2 PG (27.0-31.0) H Mean Corpuscular Hemoglobin Concent 34.9 G/DL (32.0-36.0) Red Cell Distribution Width 11.7 % (11.6-14.8) Platelet Count 147 K/UL (150-450) L Mean Platelet Volume 7.8 FL (6.5-10.1) Neutrophils (%) (Auto) 59.8 % (45.0-75.0) Lymphocytes (%) (Auto) 24.4 % (20.0-45.0) Monocytes (%) (Auto) 15.4 % (1.0-10.0) H Eosinophils (%) (Auto) 0.2 % (0.0-3.0) Basophils (%) (Auto) 0.3 % (0.0-2.0) Sodium Level 134 MMOL/L (136-145) L Potassium Level 3.6 MMOL/L (3.5-5.1) Chloride Level 101 MMOL/L (98-107) Carbon Dioxide Level 22 MMOL/L (21-32) Anion Gap 11 mmol/L (5-15) Blood Urea Nitrogen 9 mg/dL (7-18) Creatinine 1.2 MG/DL (0.55-1.30) Estimat Glomerular Filtration Rate mL/min (>60) Glucose Level 102 MG/DL (74-106) Calcium Level 7.3 MG/DL (8.5-10.1) L Total Bilirubin 1.0 MG/DL (0.2-1.0) Aspartate Amino Transf (AST/SGOT) 39 U/L (15-37) H Alanine Aminotransferase (ALT/SGPT) 37 U/L (12-78) Alkaline Phosphatase 196 U/L (46-116) H Total Protein 7.5 G/DL (6.4-8.2) Albumin 2.5 G/DL (3.4-5.0) L Globulin 5.0 g/dL Albumin/Globulin Ratio 0.5 (1.0-2.7) L Current Medications Medications (Trade) Dose Ordered Sig/Bree Route PRN Reason Start Time Stop Time Status Last Admin Dose Admin Acetaminophen/ Hydrocodone Bitart ([place] 10/325) 1 ea Q6H PRN ORAL moderate pain 4-6 11/16/17 09:30 11/23/17 09:29 11/17/17 00:23 Amlodipine Besylate (Norvasc) 10 mg DAILY ORAL 11/16/17 09:00 12/16/17 08:59 Ceftriaxone Sodium 1 gm/ Dextrose 55 ml @ 110 mls/hr Q24H IVPB 11/15/17 13:00 11/22/17 12:59 11/16/17 13:49 HCTZ/Losartan Potassium (Hyzaar 50-12.5) 1 tab DAILY ORAL 11/16/17 09:00 12/16/17 08:59 Hydromorphone HCl (Dilaudid) 1 mg Q4H PRN IVP severe pain 7-10 11/16/17 09:30 11/22/17 20:14 11/17/17 02:06 Ibuprofen (Motrin) 600 mg Q8H PRN ORAL mild pain 1-3 11/16/17 12:30 12/16/17 12:29 11/16/17 19:10 Metronidazole 100 ml @ 100 mls/hr Q8HR IVPB 11/15/17 18:00 11/22/17 17:59 11/17/17 06:06 Ondansetron HCl (Zofran) 4 mg Q6H PRN IVP Nausea & Vomiting 11/15/17 05:15 12/15/17 05:14 Sodium Chloride 1,000 ml @ 150 mls/hr Q6H40M IV 11/15/17 05:15 12/15/17 05:14 11/17/17 06:06 Tamsulosin HCl (Flomax) 0.4 mg BEDTIME ORAL 11/16/17 21:00 12/16/17 20:59 11/16/17 20:41 Lidia Grimaldo M.D. Nov 17, 2017 09:21
--- NOTE | 2017-11-17 11:45 | General Surgery Progress Note ---
General Surgery-Progress Note Subjective Additional Comments doing okay. still having RUQ pain/discomfort. no n/v/f/c. Objective Last 24 Hour Vital Signs Date Time Temp Pulse Resp B/P (MAP) Pulse Ox O2 Delivery O2 Flow Rate FiO2 11/17/17 08:32 97.5 75 20 124/69 98 Room Air 11/17/17 04:00 97.7 82 18 120/68 96 Room Air 11/17/17 00:00 98.2 78 18 121/69 99 Room Air 11/16/17 20:00 97.9 93 18 138/75 96 Room Air 11/16/17 16:55 98.1 11/16/17 12:05 98.1 92 18 130/80 97 Room Air I&O Intake and Output 11/16/17 11/17/17 19:00 07:00 Intake Total 2380 ml 1780 ml Balance 2380 ml 1780 ml Intake Oral 730 ml 480 ml IV Total 1650 ml 1300 ml # Voids 5 5 Cardiovascular: RSR Respiratory: clear Abdomen: soft, tenderness, present bowel sounds Extremities: no tenderness Laboratory Tests Test 11/17/17 06:35 White Blood Count 5.6 K/UL (4.8-10.8) Red Blood Count 3.23 M/UL (4.70-6.10) L Hemoglobin 11.0 G/DL (14.2-18.0) L Hematocrit 31.7 % (42.0-52.0) L Mean Corpuscular Volume 98 FL (80-99) Mean Corpuscular Hemoglobin 34.2 PG (27.0-31.0) H Mean Corpuscular Hemoglobin Concent 34.9 G/DL (32.0-36.0) Red Cell Distribution Width 11.7 % (11.6-14.8) Platelet Count 147 K/UL (150-450) L Mean Platelet Volume 7.8 FL (6.5-10.1) Neutrophils (%) (Auto) 59.8 % (45.0-75.0) Lymphocytes (%) (Auto) 24.4 % (20.0-45.0) Monocytes (%) (Auto) 15.4 % (1.0-10.0) H Eosinophils (%) (Auto) 0.2 % (0.0-3.0) Basophils (%) (Auto) 0.3 % (0.0-2.0) Sodium Level 134 MMOL/L (136-145) L Potassium Level 3.6 MMOL/L (3.5-5.1) Chloride Level 101 MMOL/L (98-107) Carbon Dioxide Level 22 MMOL/L (21-32) Anion Gap 11 mmol/L (5-15) Blood Urea Nitrogen 9 mg/dL (7-18) Creatinine 1.2 MG/DL (0.55-1.30) Estimat Glomerular Filtration Rate mL/min (>60) Glucose Level 102 MG/DL (74-106) Calcium Level 7.3 MG/DL (8.5-10.1) L Total Bilirubin 1.0 MG/DL (0.2-1.0) Aspartate Amino Transf (AST/SGOT) 39 U/L (15-37) H Alanine Aminotransferase (ALT/SGPT) 37 U/L (12-78) Alkaline Phosphatase 196 U/L (46-116) H Total Protein 7.5 G/DL (6.4-8.2) Albumin 2.5 G/DL (3.4-5.0) L Globulin 5.0 g/dL Albumin/Globulin Ratio 0.5 (1.0-2.7) L Plan Problems: (1) Choledocholithiasis with acute cholecystitis with obstruction Assessment & Plan: 72M with acute cholecystitis and choledocholithiasis. admitted with leukocytosis 29k, elevated t bili/lft's, CT with obstructing stone , ultrasound with distended gallbladder/stones. Had ERCP yesterday with successful clearance of duct. leukocytosis resolved. pending other labs. on ERCP films noted that gallbladder did not fill at all. this can happen at times but given CT and ultrasound findings of a very distended gallbladder there is suspicion for possible cystic duct obstruction. HIDA with cystic duct obstruction and likely cholecystitis. for cholecystectomy today. given CT findings, US findings, and HIDA results indicated and recommended -appreciate GI input -Abx as per ID -trend labs thank you for this consultation. will follow with you. Colt Galindo Nov 17, 2017 11:45
[2017-11-17] MEDS: cefTRIAXone 1 GM in D5W 55 ML IVPB SCH (13:00)
[2017-11-17] MEDS ORDERED: NS Irrig 1000ml ONE ×2 (14:00→17:08)
[2017-11-17] MEDS ORDERED: Propofol 200mg/20ml IV ONE (14:00)
[2017-11-17] MEDS ORDERED: Midazolam 2mg/2ml Inj ONE (14:00)
[2017-11-17] MEDS ORDERED: Sterile Water Irrig 1000ml IRRIG ONE (14:00)
[2017-11-17] MEDS ORDERED: fentaNYL 100 mcg/2 mL IV ONE (14:00)
[2017-11-17] MEDS ORDERED: Dexamethasone 4mg/ml vial ONE (14:00)
[2017-11-17] MEDS ORDERED: Succinylcholine 20mg/ml 10ml vial ONE (14:00)
[2017-11-17] MEDS ORDERED: LR 1000ml ONE (14:00)
[2017-11-17] MEDS ORDERED: Zemuron 50mg/5ml Inj IV ONE (14:00)
[2017-11-17] MEDS ORDERED: Ketorolac 30mg Inj ONE (14:00)
[2017-11-17] MEDS ORDERED: Metoclopramide 10mg/2ml Inj ONE (14:00)
[2017-11-17] MEDS ORDERED: Bupivacaine 0.25% Inj 30ml INJ ONE (14:22)
[2017-11-17] MEDS ORDERED: LR 1000ml 1,000 ML IVLG SCH (14:27)
[2017-11-17] MEDS ORDERED: Morphine Sulfate 2mg/ml Inj IVP PRN (14:30)
[2017-11-17] MEDS ORDERED: Hydromorphone 0.5mg/0.5ml inj IVP PRN (14:30)
[2017-11-17] MEDS ORDERED: Midazolam 2mg/2ml Inj IVP PRN (14:30)
[2017-11-17] MEDS ORDERED: Metoclopramide 10mg/2ml Inj IVP PRN ×3 (14:30→19:30)
[2017-11-17] MEDS ORDERED: fentaNYL 100 mcg/2 mL IV PRN (14:30)
[2017-11-17] MEDS ORDERED: NS Irrig 1000ml IRRIG ONE (15:05)
[2017-11-17] MEDS ORDERED: Surgicel 4in x 8in TOPIC ONE (15:22)
--- NOTE | 2017-11-17 16:06 | Brief Operative Note ---
Immediate Post Operative Note Operative Note Pre-op Diagnosis: acute cholecystitis with choledocholithiasis and non visualization of GB on HIDA with cystic duct obstruction Procedure: laparoscopic cholecystectomy Post-op Diagnosis: same as pre-op plus - distended thickened gallbladder with significant inflammatory changes Surgeon: andre Anesthesiologist: augie Anesthesia: general Specimen: yes - gallbladder Complications: none Condition: stable Fluids: see records Estimated Blood Loss: minimal Drains: none Implant(s) used?: No Colt Galindo Nov 17, 2017 16:06
[2017-11-17] MEDS ORDERED: Milk of Magnesia 30ml Ud ORAL PRN (16:15)
[2017-11-17] MEDS: Albuterol ud Inhalation HHN SCH ×2 (16:20→20:00)
--- NOTE | 2017-11-17 16:56 | Anethesia Preoperative Eval ---
Anesthesia Pre-op PMH/ROS General Date of Evaluation: Nov 17, 2017 Time of Evaluation: 14:00 Anesthesiologist: Garret ASA Score: ASA 2 Mallampati Score Class I : Soft palate, uvula, fauces, pillars visible Class II: Soft palate, uvula, fauces visible Class III: Soft palate, base of uvula visible Class IV: Only hard plate visible Mallampati Classification: Class II Surgeon: Ken Diagnosis: Acute Cholecystitis Surgical Procedure: Lap Shaye Anesthesia History: none Family History: no anesthesia problems Allergies: Coded Allergies: No Known Allergies (Unverified , 12/09/12) Past Medical History Cardiovascular: Reports: HTN Anesthesia Pre-op Phys. Exam Physician Exam Last Vital Signs Date Time Temp Pulse Resp B/P (MAP) Pulse Ox O2 Delivery O2 Flow Rate FiO2 11/17/17 16:45 84 27 133/74 95 Simple Mask 15.0 11/17/17 16:10 98.0 Constitutional: NAD Neurologic: CN 2-12 intact Cardiovascular: RRR Respiratory: CTA Gastrointestinal: S/NT/ND Airway Exam Mallampati Score: Class II MO: full ROM: full Teeth: intact Anesthesia Pre-op A/P Labs Hematology Test 11/17/17 06:35 White Blood Count 5.6 K/UL (4.8-10.8) Red Blood Count 3.23 M/UL (4.70-6.10) L Hemoglobin 11.0 G/DL (14.2-18.0) L Hematocrit 31.7 % (42.0-52.0) L Mean Corpuscular Volume 98 FL (80-99) Mean Corpuscular Hemoglobin 34.2 PG (27.0-31.0) H Mean Corpuscular Hemoglobin Concent 34.9 G/DL (32.0-36.0) Red Cell Distribution Width 11.7 % (11.6-14.8) Platelet Count 147 K/UL (150-450) L Mean Platelet Volume 7.8 FL (6.5-10.1) Neutrophils (%) (Auto) 59.8 % (45.0-75.0) Lymphocytes (%) (Auto) 24.4 % (20.0-45.0) Monocytes (%) (Auto) 15.4 % (1.0-10.0) H Eosinophils (%) (Auto) 0.2 % (0.0-3.0) Basophils (%) (Auto) 0.3 % (0.0-2.0) Chemistry Test 11/17/17 06:35 Sodium Level 134 MMOL/L (136-145) L Potassium Level 3.6 MMOL/L (3.5-5.1) Chloride Level 101 MMOL/L (98-107) Carbon Dioxide Level 22 MMOL/L (21-32) Anion Gap 11 mmol/L (5-15) Blood Urea Nitrogen 9 mg/dL (7-18) Creatinine 1.2 MG/DL (0.55-1.30) Estimat Glomerular Filtration Rate mL/min (>60) Glucose Level 102 MG/DL (74-106) Calcium Level 7.3 MG/DL (8.5-10.1) L Total Bilirubin 1.0 MG/DL (0.2-1.0) Aspartate Amino Transf (AST/SGOT) 39 U/L (15-37) H Alanine Aminotransferase (ALT/SGPT) 37 U/L (12-78) Alkaline Phosphatase 196 U/L (46-116) H Total Protein 7.5 G/DL (6.4-8.2) Albumin 2.5 G/DL (3.4-5.0) L Globulin 5.0 g/dL Albumin/Globulin Ratio 0.5 (1.0-2.7) L Risk Assessment & Plan Plan: GA Status Change Before Surgery: No Pre-Antibiotics Given Within 1 Hr of Incision: Parveen Moctezuma M.D. Nov 17, 2017 16:56
--- NOTE | 2017-11-17 16:58 | Immediate Post-Op Evaluation ---
Immediate Post-Op Evalulation Immediate Post-Op Evalulation Procedure: Lap Shaye Date of Evaluation: Nov 17, 2017 Time of Evaluation: 16:57 IV Fluids: 700 Blood Products: 0 Estimated Blood Loss: 0 Urinary Output: 0 Blood Pressure Systolic: 132 Blood Pressure Diastolic: 76 Pulse Rate: 81 Respiratory Rate: 16 O2 Sat by Pulse Oximetry: 99 Temperature (Fahrenheit): 98 Pain Score (1-10): 0 Nausea: No Vomiting: No Patient Status: awake, reacts, patent, extubated Hydration Status: adequate Given Within 1 Hr of Incision: Parveen Moctezuma M.D. Nov 17, 2017 16:58
--- NOTE | 2017-11-17 16:59 | 48 Hour Post Anesthesia Eval ---
Post Anesthesia Evaluation Procedure: Lap Shaye Date of Evaluation: Nov 19, 2017 Time of Evaluation: 10:00 Blood Pressure Systolic: 125 0: 78 Pulse Rate: 78 Respiratory Rate: 18 Temperature (Fahrenheit): 98 O2 Sat by Pulse Oximetry: 99 Airway: patent Nausea: No Vomiting: No Hydration Status: adequate Mental Status/LOC: patient returned to baseline Follow-up care needed: patient intructions given Parveen Combs M.D. Nov 17, 2017 16:59
[2017-11-17] MEDS ORDERED: NS 500ML ONE (17:08)
[2017-11-17] MEDS ORDERED: Tubing IV Secondary IV ONE (17:08)
[2017-11-17] MEDS: Docusate 100mg cap ORAL SCH (18:34)
[2017-11-17] MEDS: D5 1/2NS w/KCl 20mEq 1,000 ML IV SCH (18:34)
[2017-11-17] MEDS: Ketorolac 30mg Inj IV PRN (19:29)
--- NOTE | 2017-11-17 20:08 | General Progress Note ---
Assessment/Plan Assessment/Plan ASSESSMENT AND RECOMMENDATIONS: 1. Choledocholithiasis with right upper quadrant pain, has been seen by GI Service and ID Service. --> s/p choly today in OR with Dr. Galindo 2. Status post ercp with stent placement. Currently hemodynamically stable. s/o choly 3. Nausea and vomiting now improvd 4. Acute kidney injury, to be seen by Nephrology Service. 5. Hyponatremia and hypocalcemia . 6. Leukocytosis, resolved 7. Anemia, currently mild Subjective Allergies: Coded Allergies: No Known Allergies (Unverified , 12/09/12) All Systems: reviewed and negative except above Subjective nad. sp choly Objective Last 24 Hour Vital Signs Date Time Temp Pulse Resp B/P (MAP) Pulse Ox O2 Delivery O2 Flow Rate FiO2 11/17/17 19:58 81 18 Nasal Cannula 3.0 11/17/17 17:56 97.0 81 18 124/71 97 11/17/17 17:34 97.8 86 19 123/76 98 Nasal Cannula 3.0 11/17/17 17:20 83 13 124/68 97 Nasal Cannula 3.0 11/17/17 17:10 82 18 119/68 99 Nasal Cannula 3.0 11/17/17 16:59 78 18 99 11/17/17 16:58 81 16 99 11/17/17 16:55 87 25 122/77 96 Simple Mask 15.0 11/17/17 16:45 84 27 133/74 95 Simple Mask 15.0 11/17/17 16:35 96 26 128/79 88 Non-Rebreather 15.0 11/17/17 16:20 129 35 149/94 85 Simple Mask 15.0 11/17/17 16:15 109 32 109/83 83 Simple Mask 15.0 11/17/17 16:10 98.0 103 35 154/100 85 Simple Mask 15.0 11/17/17 11:57 97.0 78 18 129/76 100 Room Air 11/17/17 08:32 97.5 75 20 124/69 98 Room Air 11/17/17 04:00 97.7 82 18 120/68 96 Room Air 11/17/17 00:00 98.2 78 18 121/69 99 Room Air Intake and Output 11/16/17 11/17/17 19:00 07:00 Intake Total 2380 ml 1780 ml Balance 2380 ml 1780 ml Intake Oral 730 ml 480 ml IV Total 1650 ml 1300 ml # Voids 5 5 Laboratory Tests 11/17/17 06:35: White Blood Count 5.6, Red Blood Count 3.23L, Hemoglobin 11.0L, Hematocrit 31.7L , Mean Corpuscular Volume 98, Mean Corpuscular Hemoglobin 34.2H, Mean Corpuscular Hemoglobin Concent 34.9, Red Cell Distribution Width 11.7, Platelet Count 147L, Mean Platelet Volume 7.8, Neutrophils (%) (Auto) 59.8, Lymphocytes ( %) (Auto) 24.4, Monocytes (%) (Auto) 15.4H, Eosinophils (%) (Auto) 0.2, Basophils (%) (Auto) 0.3, Sodium Level 134L, Potassium Level 3.6, Chloride Level 101, Carbon Dioxide Level 22, Anion Gap 11, Blood Urea Nitrogen 9, Creatinine 1.2, Estimat Glomerular Filtration Rate , Glucose Level 102, Calcium Level 7.3L, Total Bilirubin 1.0, Aspartate Amino Transf (AST/SGOT) 39H, Alanine Aminotransferase (ALT/SGPT) 37, Alkaline Phosphatase 196H, Total Protein 7.5, Albumin 2.5L, Globulin 5.0, Albumin/Globulin Ratio 0.5L Height (Feet): 6 Height (Inches): 1.00 Weight (Pounds): 174 General Appearance: alert EENT: normal ENT inspection Neck: supple Respiratory/Chest: lungs clear, no respiratory distress Abdomen: non tender Extremities: non-tender Luis Frausto Nov 17, 2017 20:08
[2017-11-17] MEDS: Tamsulosin 0.4mg cap ORAL SCH (20:38)
--- NOTE | 2017-11-17 20:44 | General Progress Note ---
Assessment/Plan Assessment/Plan Assessment (1) Cholecystitis ICD Codes: K81.9 - Cholecystitis SNOMED: 18236072 (2) Choledocholithiasis with acute cholecystitis with obstruction ICD Codes: K80.41 - Calculus of bile duct with cholecystitis, unspecified, with obstruction SNOMED: 08764716 Status: progressing . Assessment/Plan s/p ERCP SUMMARY OF FINDINGS: 1. Choledocholithiasis. 2. Short distal biliary stricture. 3. Status post endoscopic retrograde cholangiopancreatography with sphincterotomy, dilation, biopsy, and stenting. RECOMMENDATIONS: Cholecystectomy diet per surgery The patient is to come back in three months for removal of the stent and may need repeat biopsies. abx fu labs Subjective Allergies: Coded Allergies: No Known Allergies (Unverified , 12/09/12) Subjective See in am pre op family at beside no abdominal complaints Objective Last 24 Hour Vital Signs Date Time Temp Pulse Resp B/P (MAP) Pulse Ox O2 Delivery O2 Flow Rate FiO2 11/17/17 19:58 81 18 Nasal Cannula 3.0 11/17/17 17:56 97.0 81 18 124/71 97 11/17/17 17:34 97.8 86 19 123/76 98 Nasal Cannula 3.0 11/17/17 17:20 83 13 124/68 97 Nasal Cannula 3.0 11/17/17 17:10 82 18 119/68 99 Nasal Cannula 3.0 11/17/17 16:59 78 18 99 11/17/17 16:58 81 16 99 11/17/17 16:55 87 25 122/77 96 Simple Mask 15.0 11/17/17 16:45 84 27 133/74 95 Simple Mask 15.0 11/17/17 16:35 96 26 128/79 88 Non-Rebreather 15.0 11/17/17 16:20 129 35 149/94 85 Simple Mask 15.0 11/17/17 16:15 109 32 109/83 83 Simple Mask 15.0 11/17/17 16:10 98.0 103 35 154/100 85 Simple Mask 15.0 11/17/17 11:57 97.0 78 18 129/76 100 Room Air 11/17/17 08:32 97.5 75 20 124/69 98 Room Air 11/17/17 04:00 97.7 82 18 120/68 96 Room Air 11/17/17 00:00 98.2 78 18 121/69 99 Room Air Intake and Output 11/16/17 11/17/17 19:00 07:00 Intake Total 2380 ml 1780 ml Balance 2380 ml 1780 ml Intake Oral 730 ml 480 ml IV Total 1650 ml 1300 ml # Voids 5 5 Laboratory Tests 11/17/17 06:35: White Blood Count 5.6, Red Blood Count 3.23L, Hemoglobin 11.0L, Hematocrit 31.7L , Mean Corpuscular Volume 98, Mean Corpuscular Hemoglobin 34.2H, Mean Corpuscular Hemoglobin Concent 34.9, Red Cell Distribution Width 11.7, Platelet Count 147L, Mean Platelet Volume 7.8, Neutrophils (%) (Auto) 59.8, Lymphocytes ( %) (Auto) 24.4, Monocytes (%) (Auto) 15.4H, Eosinophils (%) (Auto) 0.2, Basophils (%) (Auto) 0.3, Sodium Level 134L, Potassium Level 3.6, Chloride Level 101, Carbon Dioxide Level 22, Anion Gap 11, Blood Urea Nitrogen 9, Creatinine 1.2, Estimat Glomerular Filtration Rate , Glucose Level 102, Calcium Level 7.3L, Total Bilirubin 1.0, Aspartate Amino Transf (AST/SGOT) 39H, Alanine Aminotransferase (ALT/SGPT) 37, Alkaline Phosphatase 196H, Total Protein 7.5, Albumin 2.5L, Globulin 5.0, Albumin/Globulin Ratio 0.5L Height (Feet): 6 Height (Inches): 1.00 Weight (Pounds): 174 Objective WDWN AA man NCAT supple CTA RRR Soft ND NT no edema non focal [facility] ER[facility]ST Nov 17, 2017 20:44
--- NOTE | 2017-11-17 21:17 | Operative Note - Dictated ---
DATE OF OPERATION: 11/17/2017 PREOPERATIVE DIAGNOSES: 1. Acute cholecystitis with choledocholithiasis. 2. Cystic duct obstruction. 3. Cholangitis. POSTOPERATIVE DIAGNOSES: 1. Acute cholecystitis with choledocholithiasis. 2. Cystic duct obstruction. 3. Cholangitis. OPERATION PERFORMED: Laparoscopic cholecystectomy. ATTENDING SURGEON: Colt Galindo M.D. GEAR SHAVER SET UP OPERATOR: None. ANESTHESIOLOGIST: Parveen Combs M.D. ANESTHESIA: General DREDGE RUNNER. ESTIMATED BLOOD LOSS: Minimal. IV FLUIDS: Please see anesthesia records. COMPLICATIONS: None. SPECIMENS: Gallbladder sent to pathology for review. DRAINS: None. IMPLANTS: None. WOUND CLASSIFICATION: Class III. COUNTS: Sponge and needle count correct x2. SIGNIFICANT OPERATIVE DETAILS: 1. No intraabdominal adhesions noted from prior surgery. 2. Significant inflammatory changes around the gallbladder. 3. Distended gallbladder with significantly thickened peritoneal lining indicative of acute cholecystitis. INDICATIONS FOR PROCEDURE: This is a 72-year-old male, who presented to the emergency room with complaints of worsening abdominal pain. Upon workup, the patient was found to have cholangitis with obstruction of distal common bile duct. The patient had low-grade fevers, leukocytosis of 29,000, and elevated total bilirubin, AST, ALT, and alkaline phosphatase. Ultrasound was done and demonstrated a significantly distended gallbladder with cholelithiasis and biliary ductal dilatation. CT scan was performed as well which demonstrated cholelithiasis and choledocholithiasis with biliary ductal dilatation. Gastrointestinal was consulted and ERCP was performed, which evacuated the common bile duct and stricture was noted in the distal common bile duct requiring stent placement as well. ERCP images were reviewed and the gallbladder did not fill during cholangiogram. Given this ultrasound and CT findings and the patient's persistent right upper quadrant pain, there were concerns for acute cholecystitis with cystic duct obstruction. During ERCP, it was noted that the patient did have pus evacuated from the common bile duct and there were concerns for pus for an infected and worsening gallbladder. A HIDA scan was performed and demonstrated impeded biliary flow as well as cystic duct obstruction and nonvisualization of the gallbladder with suspected cholecystitis. Given these findings, a cholecystectomy was indicated and recommended. The risks, benefits, and alternatives were discussed with the patient in detail preoperatively. The patient expressed understanding and consented to surgery. OPERATIVE NOTE: The patient was taken to the operating and placed on the operating table in supine position with bilateral arm out. All bony prominences were well padded with gel pads. Preoperative time-out was taken identifying the patient, procedure, operative staff, and surgical staff. The patient was already on scheduled antibiotics, Rocephin and Flagyl for treatment of infectious process. No Cobos catheter was placed given the patient voided just prior to entering the operating room. SCDs were placed. General anesthesia was induced and the patient was then intubated. The abdomen was prepped and draped in the standard surgical fashion. An umbilical incision was made using a fresh #11 blade. Incision was carried down through the fascia. There was a fascial defect noted at the umbilicus. The fascia was elevated and using the patient's umbilical hernia, entry into the abdomen was obtained using the open Ladarius technique with direct visualization. No complications from initial entry to the abdomen noted. A 12 mm Ladarius trocar was inserted and the abdomen was insufflated to 12 to 15 mmHg. The patient tolerated the insufflation well. The laparoscope was then inserted and the abdomen was inspected. The patient had a prior abdominal surgery and fortunately did not have any the adhesions resulting from that. The gallbladder was identified in the right upper quadrant. It was covered by the omentum. The liver was inspected and noted to be very dense with blunted edges and signs of chronic liver insufficiency/disease. The stomach looked otherwise normal. Inspection of the pelvis and lower abdomen were otherwise normal as well. The small bowel fortunately could be visualized as well as colon were normal. At this time, secondary trocars were placed under direct visualization beginning with a 12 mm trocar in the epigastric region followed by two 5 mm trocars in the right subcostal region. Using the most lateral trocar, traction was gently placed on the omental adhesions. Electrocautery and blunt dissection were used to gently sweep these adhesions away from the gallbladder. The dome of the gallbladder was identified and grasped with the most lateral port. The gallbladder was then retracted over the dome of the liver. The remaining omental adhesions were dissected off the gallbladder without complication. Using the midclavicular port, the infundibular gallbladder was grasped and incised and the peritoneal lining incised. The peritoneum was significantly thickened with edema as well. Given the significant dilatation/distention of the gallbladder, it was difficult to place instruments and gallbladder required decompression. A small incision was made in the gallbladder and the contents of the gallbladder were evacuated. The contents were noted to be mainly bile. Once the gallbladder was decompressed, it was easier to grasp the dome of the infundibulum. At this time, the dense thickened peritoneal lining was taken down with electrocautery and blunt dissection. The medial and lateral aspect of the gallbladder were then slowly dissected off the liver bed. Following this, the cystic duct and artery were identified and circumferentially dissected out. The critical view was obtained identifying the cystic duct and artery. There were only two items entering within the gallbladder. The cystic duct, plate, and lymph node, nothing else entering into the gallbladder and no other abnormalities. At this time, cystic duct and artery were doubly clipped and divided. Following this, the gallbladder was removed off the liver bed using electrocautery. There was significantly thickened and inflammatory tissue in this area as well. Once gallbladder was mobilized off the liver bed, it was placed in endoscopic retrieval bag and removed through the umbilical port. The liver bed was inspected and hemostasis was obtained with electrocautery. The right upper quadrant was irrigated and suctioned. No further abnormalities were noted. The cystic duct and artery stumps were evaluated and clips were noted to be in place. No leakage of bile or bleeding were noted. Given the significant inflammatory tissue in the liver bed from the inflammatory process of the cholecystitis, a Surgicel was placed to help for hemostasis. At this time, we began the conclusion of our procedure. Secondary trocars were removed under direct visualization without complication. The abdomen was allowed to desufflate. The fascial incisions were closed using #0 Vicryl sutures. The skin incisions were then closed using 4-0 Monocryl sutures. Local anesthetic was infiltrated through the incisions and fascial sites throughout the procedure as necessary. The patient tolerated the procedure well was extubated and taken to the postanesthetic care unit in stable condition. Colt Galindo M.D. DR: Sisi JOB#: [id number] CC:
[2017-11-18] VITALS: BP 136/70
[2017-11-18] MEDS: Albuterol ud Inhalation HHN SCH ×3 (01:15→12:41)
[2017-11-18] MEDS: D5 1/2NS w/KCl 20mEq 1,000 ML IV SCH (03:28)
[2017-11-18 04:00] VITALS: BP 130/69
[2017-11-18 07:23] LABS: BASOPHILS % (AUTO) 0.1 % (0.0-2.0); EOSINOPHILS % (AUTO) 0.1 % (0.0-3.0); HEMATOCRIT 32.6 % (42.0-52.0); HEMOGLOBIN 11.6 G/DL (14.2-18.0); MEAN CORPUSCULAR VOLUME 95 FL (80-99); MONOCYTES % (AUTO) 11.7 % (1.0-10.0); PLATELET COUNT 166 K/UL (150-450); RED BLOOD COUNT 3.45 M/UL (4.70-6.10); RED CELL DISTRIBUTION WIDTH 11.4 % (11.6-14.8); WHITE BLOOD COUNT 8.3 K/UL (4.8-10.8)
[2017-11-18 07:58] LABS: ALANINE AMINOTRANSFERASE 38 U/L (12-78); ALBUMIN 2.5 G/DL (3.4-5.0); ALBUMIN/GLOBULIN RATIO 0.5 (1.0-2.7); ALKALINE PHOSPHATASE 185 U/L (46-116); ANION GAP 11 mmol/L (5-15); ASPARTATE AMINO TRANSFERASE 58 U/L (15-37); BILIRUBIN,TOTAL 0.9 MG/DL (0.2-1.0); BLOOD UREA NITROGEN 9 mg/dL (7-18); CARBON DIOXIDE 22 MMOL/L (21-32); CHLORIDE 98 MMOL/L (98-107); CREATININE 1.2 MG/DL (0.55-1.30); POTASSIUM 3.7 MMOL/L (3.5-5.1); SODIUM 131 MMOL/L (136-145)
[2017-11-18 08:00] VITALS: BP 138/83
[2017-11-18] MEDS: HYDROcodone/Acetamin 10/325 tab ORAL PRN (08:03)
[2017-11-18] MEDS: Hyzaar 12.5mg/50mg tab ORAL SCH (08:03)
[2017-11-18] MEDS: Docusate 100mg cap ORAL SCH (08:03)
[2017-11-18] MEDS: Ketorolac 30mg Inj IV PRN (09:09)
--- NOTE | 2017-11-18 09:09 | General Progress Note ---
Assessment/Plan Assessment/Plan (1) Intractable abdominal Pain (2) Choledocholithiasis (3) Cholangitis (4) S/p Laparoscopic cholecystectomy Pt will be continued on Toradol and [place] as needed D/w Dr. Crenshaw and he concurred. Subjective Date patient seen: Nov 18, 2017 Time patient seen: 07:15 - am Allergies: Coded Allergies: No Known Allergies (Unverified , 12/09/12) Subjective REVIEW OF SYSTEMS: Denies rash, fever, chills, sweating, dizziness, drowsiness, or change in his weight. No shortness of breath, chest pain, palpitations, or cough. No nausea, vomiting, diarrhea, or blood in the stool or urine. No bowel or bladder incontinence. No dysuria. He is complaining of abdominal pain. SUBJECTIVE: Patient is in bed s/p cholecystectomy and reports that the his pain has greatly reduced and is c/o some sore ness around surgical site. The Dilaudid was discontinued and started on Toradol. Objective Last 24 Hour Vital Signs Date Time Temp Pulse Resp B/P (MAP) Pulse Ox O2 Delivery O2 Flow Rate FiO2 11/18/17 08:03 82 130/69 11/18/17 08:03 130/69 11/18/17 07:15 82 20 98 Nasal Cannula 3.0 32 11/18/17 07:15 98 Nasal Cannula 3.0 32 11/18/17 07:15 Nasal Cannula 11/18/17 07:15 Nasal Cannula 3.0 32 11/18/17 04:00 98.8 93 20 130/69 99 Room Air 11/18/17 02:46 90 20 98 Nasal Cannula 3.0 32 11/18/17 00:00 99.5 93 20 136/70 99 Room Air 11/17/17 20:00 98.1 94 20 149/87 97 Nasal Cannula 3.0 11/17/17 19:58 81 18 Nasal Cannula 3.0 11/17/17 17:56 97.0 81 18 124/71 97 11/17/17 17:34 97.8 86 19 123/76 98 Nasal Cannula 3.0 11/17/17 17:20 83 13 124/68 97 Nasal Cannula 3.0 11/17/17 17:10 82 18 119/68 99 Nasal Cannula 3.0 11/17/17 16:59 78 18 99 11/17/17 16:58 81 16 99 11/17/17 16:55 87 25 122/77 96 Simple Mask 15.0 11/17/17 16:45 84 27 133/74 95 Simple Mask 15.0 11/17/17 16:35 96 26 128/79 88 Non-Rebreather 15.0 11/17/17 16:20 129 35 149/94 85 Simple Mask 15.0 11/17/17 16:15 109 32 109/83 83 Simple Mask 15.0 11/17/17 16:10 98.0 103 35 154/100 85 Simple Mask 15.0 11/17/17 11:57 97.0 78 18 129/76 100 Room Air Intake and Output 11/17/17 11/18/17 19:00 07:00 Intake Total 1700 ml 1260 ml Output Total 10 ml Balance 1690 ml 1260 ml Intake Oral 260 ml IV Total 1700 ml 1000 ml Output Estimated Blood Loss 10 ml # Voids 3 Laboratory Tests 11/18/17 06:35: White Blood Count 8.3, Red Blood Count 3.45L, Hemoglobin 11.6L, Hematocrit 32.6L , Mean Corpuscular Volume 95, Mean Corpuscular Hemoglobin 33.6H, Mean Corpuscular Hemoglobin Concent 35.5, Red Cell Distribution Width 11.4L, Platelet Count 166, Mean Platelet Volume 8.1, Neutrophils (%) (Auto) 77.0H, Lymphocytes (%) (Auto) 11.0L, Monocytes (%) (Auto) 11.7H, Eosinophils (%) (Auto ) 0.1, Basophils (%) (Auto) 0.1, Sodium Level 131L, Potassium Level 3.7, Chloride Level 98, Carbon Dioxide Level 22, Anion Gap 11, Blood Urea Nitrogen 9 , Creatinine 1.2, Estimat Glomerular Filtration Rate , Glucose Level 180H, Calcium Level 7.0L, Total Bilirubin 0.9, Aspartate Amino Transf (AST/SGOT) 58H, Alanine Aminotransferase (ALT/SGPT) 38, Alkaline Phosphatase 185H, Total Protein 7.3, Albumin 2.5L, Globulin 4.8, Albumin/Globulin Ratio 0.5L Height (Feet): 6 Height (Inches): 1.00 Weight (Pounds): 174 Objective GENERAL: Alert, awake, and oriented x3. HEENT: PERRLA. NECK: Range of motion is full in all directions. No tenderness to paracervical muscles. No adenopathy. LUNGS: Decreased breath sounds bilaterally. HEART: Regular. ABDOMEN: Tenderness to palpation. EXTREMITIES: No cyanosis. No clubbing. No edema. NEURO: No changes. TAMARA ACEVEDO Nov 18, 2017 09:09
[2017-11-18 12:00] VITALS: BP 124/66
[2017-11-18] MEDS: cefTRIAXone 1 GM in D5W 55 ML IVPB SCH (14:07)
--- NOTE | 2017-11-18 14:15 | General Progress Note ---
Progress Note Progress Note Surgery: doing very well. no complaints. states he feels MUCH better. RUQ pain resolved. no longer has any discomfort. no n/v/f/c. has been tolerating diet. ambulator. afebrile, HD stable, VSS. labs improved abdomen soft, nt/nd, bs+, incisions c/d/i. -diet as tolerated -activity as tolerated; no lifting >15lbs for 4 weeks -follow up with me in 1-2 weeks -follow up with GI as directed for stent removal -okay to d/c today. Rx given Colt Galindo Nov 18, 2017 14:15
[2017-11-18] MEDS ORDERED: NORCO 5-325 TA1 EAC1 ORAL (14:56)
[2017-11-18] MEDS ORDERED: COLACE100 MG ORAL (14:56)
[2017-11-18] MEDS ORDERED: CIPRO500 MG/51 PO (14:59)
[2017-11-18] MEDS ORDERED: FLAGYL375 MG ORAL (15:00)
--- NOTE | 2017-11-18 15:28 | General Progress Note ---
Assessment/Plan Assessment/Plan Assessment (1) Cholecystitis ICD Codes: K81.9 - Cholecystitis SNOMED: 48675164 (2) Choledocholithiasis with acute cholecystitis with obstruction ICD Codes: K80.41 - Calculus of bile duct with cholecystitis, unspecified, with obstruction SNOMED: 61292101 Status: progressing . Assessment/Plan s/p ERCP SUMMARY OF FINDINGS: 1. Choledocholithiasis. 2. Short distal biliary stricture. 3. Status post endoscopic retrograde cholangiopancreatography with sphincterotomy, dilation, biopsy, and stenting. RECOMMENDATIONS: post op care diet per surgery The patient is to come back in three months for removal of the stent and may need repeat biopsies. abx fu labs Subjective Allergies: Coded Allergies: No Known Allergies (Unverified , 12/09/12) Subjective POD #1 s/p benjie feels OK for possible d/c Objective Last 24 Hour Vital Signs Date Time Temp Pulse Resp B/P (MAP) Pulse Ox O2 Delivery O2 Flow Rate FiO2 11/18/17 12:39 Nasal Cannula 11/18/17 12:39 Nasal Cannula 11/18/17 12:00 98.4 86 18 124/66 96 Room Air 11/18/17 08:03 82 130/69 11/18/17 08:03 130/69 11/18/17 08:00 99.5 93 18 138/83 94 Room Air 11/18/17 07:15 82 20 98 Nasal Cannula 3.0 32 11/18/17 07:15 98 Nasal Cannula 3.0 32 11/18/17 07:15 Nasal Cannula 11/18/17 07:15 Nasal Cannula 3.0 32 11/18/17 04:00 98.8 93 20 130/69 99 Room Air 11/18/17 02:46 90 20 98 Nasal Cannula 3.0 32 11/18/17 00:00 99.5 93 20 136/70 99 Room Air 11/17/17 20:00 98.1 94 20 149/87 97 Nasal Cannula 3.0 11/17/17 19:58 81 18 Nasal Cannula 3.0 11/17/17 17:56 97.0 81 18 124/71 97 11/17/17 17:34 97.8 86 19 123/76 98 Nasal Cannula 3.0 11/17/17 17:20 83 13 124/68 97 Nasal Cannula 3.0 11/17/17 17:10 82 18 119/68 99 Nasal Cannula 3.0 11/17/17 16:59 78 18 99 11/17/17 16:58 81 16 99 11/17/17 16:55 87 25 122/77 96 Simple Mask 15.0 11/17/17 16:45 84 27 133/74 95 Simple Mask 15.0 11/17/17 16:35 96 26 128/79 88 Non-Rebreather 15.0 11/17/17 16:20 129 35 149/94 85 Simple Mask 15.0 11/17/17 16:15 109 32 109/83 83 Simple Mask 15.0 11/17/17 16:10 98.0 103 35 154/100 85 Simple Mask 15.0 Intake and Output 11/17/17 11/18/17 19:00 07:00 Intake Total 1700 ml 1260 ml Output Total 10 ml Balance 1690 ml 1260 ml Intake Oral 260 ml IV Total 1700 ml 1000 ml Output Estimated Blood Loss 10 ml # Voids 3 Laboratory Tests 11/18/17 06:35: White Blood Count 8.3, Red Blood Count 3.45L, Hemoglobin 11.6L, Hematocrit 32.6L , Mean Corpuscular Volume 95, Mean Corpuscular Hemoglobin 33.6H, Mean Corpuscular Hemoglobin Concent 35.5, Red Cell Distribution Width 11.4L, Platelet Count 166, Mean Platelet Volume 8.1, Neutrophils (%) (Auto) 77.0H, Lymphocytes (%) (Auto) 11.0L, Monocytes (%) (Auto) 11.7H, Eosinophils (%) (Auto ) 0.1, Basophils (%) (Auto) 0.1, Sodium Level 131L, Potassium Level 3.7, Chloride Level 98, Carbon Dioxide Level 22, Anion Gap 11, Blood Urea Nitrogen 9 , Creatinine 1.2, Estimat Glomerular Filtration Rate , Glucose Level 180H, Calcium Level 7.0L, Total Bilirubin 0.9, Aspartate Amino Transf (AST/SGOT) 58H, Alanine Aminotransferase (ALT/SGPT) 38, Alkaline Phosphatase 185H, Total Protein 7.3, Albumin 2.5L, Globulin 4.8, Albumin/Globulin Ratio 0.5L Height (Feet): 6 Height (Inches): 1.00 Weight (Pounds): 174 Objective WDWN AA man NCAT supple CTA RRR Soft ND NT, wounds OK no edema non focal [facility] ER[facility] Nov 18, 2017 15:28
--- NOTE | 2017-11-18 19:39 | General Progress Note ---
Assessment/Plan Assessment/Plan ASSESSMENT AND RECOMMENDATIONS: 1. Choledocholithiasis with right upper quadrant pain, has been seen by GI Service and ID Service. --> s/p choly yesterday in OR with Dr. Galindo, doing better, stable for d/c 2. Status post ercp with stent placement. Currently hemodynamically stable. s/o choly 3. Nausea and vomiting now improvd 4. Acute kidney injury, to be seen by Nephrology Service. 5. Hyponatremia and hypocalcemia . 6. Leukocytosis, resolved 7. Anemia, currently mild Subjective Constitutional: Reports: no symptoms HEENT: Reports: no symptoms Cardiovascular: Reports: no symptoms Respiratory: Reports: no symptoms Gastrointestinal/Abdominal: Reports: poor appetite Genitourinary: Reports: no symptoms Neurologic/Psychiatric: Reports: no symptoms Endocrine: Reports: no symptoms Hematologic/Lymphatic: Reports: anemia Allergies: Coded Allergies: No Known Allergies (Unverified , 12/09/12) Subjective nad. sp choly Objective Last 24 Hour Vital Signs Date Time Temp Pulse Resp B/P (MAP) Pulse Ox O2 Delivery O2 Flow Rate FiO2 11/18/17 12:39 Nasal Cannula 11/18/17 12:39 Nasal Cannula 11/18/17 12:00 98.4 86 18 124/66 96 Room Air 11/18/17 08:03 82 130/69 11/18/17 08:03 130/69 11/18/17 08:00 99.5 93 18 138/83 94 Room Air 11/18/17 07:15 82 20 98 Nasal Cannula 3.0 32 11/18/17 07:15 98 Nasal Cannula 3.0 32 11/18/17 07:15 Nasal Cannula 11/18/17 07:15 Nasal Cannula 3.0 32 11/18/17 04:00 98.8 93 20 130/69 99 Room Air 11/18/17 02:46 90 20 98 Nasal Cannula 3.0 32 11/18/17 00:00 99.5 93 20 136/70 99 Room Air 11/17/17 20:00 98.1 94 20 149/87 97 Nasal Cannula 3.0 11/17/17 19:58 81 18 Nasal Cannula 3.0 Intake and Output 11/17/17 11/18/17 19:00 07:00 Intake Total 1700 ml 1260 ml Output Total 10 ml Balance 1690 ml 1260 ml Intake Oral 260 ml IV Total 1700 ml 1000 ml Output Estimated Blood Loss 10 ml # Voids 3 Laboratory Tests 11/18/17 06:35: White Blood Count 8.3, Red Blood Count 3.45L, Hemoglobin 11.6L, Hematocrit 32.6L , Mean Corpuscular Volume 95, Mean Corpuscular Hemoglobin 33.6H, Mean Corpuscular Hemoglobin Concent 35.5, Red Cell Distribution Width 11.4L, Platelet Count 166, Mean Platelet Volume 8.1, Neutrophils (%) (Auto) 77.0H, Lymphocytes (%) (Auto) 11.0L, Monocytes (%) (Auto) 11.7H, Eosinophils (%) (Auto ) 0.1, Basophils (%) (Auto) 0.1, Sodium Level 131L, Potassium Level 3.7, Chloride Level 98, Carbon Dioxide Level 22, Anion Gap 11, Blood Urea Nitrogen 9 , Creatinine 1.2, Estimat Glomerular Filtration Rate , Glucose Level 180H, Calcium Level 7.0L, Total Bilirubin 0.9, Aspartate Amino Transf (AST/SGOT) 58H, Alanine Aminotransferase (ALT/SGPT) 38, Alkaline Phosphatase 185H, Total Protein 7.3, Albumin 2.5L, Globulin 4.8, Albumin/Globulin Ratio 0.5L Height (Feet): 6 Height (Inches): 1.00 Weight (Pounds): 174 General Appearance: WD/WN EENT: normal ENT inspection Cardiovascular: normal peripheral pulses Respiratory/Chest: normal breath sounds Abdomen: no organomegaly Extremities: non-tender Edema: 1+ Leg (L), 1+ Leg (R) Neurologic: alert Skin: warm/dry Luis Frausto Nov 18, 2017 19:39
--- NOTE | 2017-11-21 08:08 | Discharge Summary ---
Discharge Summary Hospital Course Date of Admission Nov 15, 2017 at 03:35 Date of Discharge Nov 18, 2017 at 15:00 Admitting Diagnosis CHOLECYSTITIS HPI Arsalan Malia Stuart Sr is a 72 year old male who was admitted on Nov 15, 2017 at 03: 35 for Cholecystitis Hospital Course dc summary #[id number] Discharge Condition Upon Discharge: stable Discharge Disposition Patient was discharged to Home (01) Discharge Diagnoses: Discharge Instructions Discharge Instructions Special Instructions I have been assigned to complete a D/C Summary on this account. I was not involved in the patient management Migdalia Hilario NP (Vanchtein) Nov 21, 2017 08:08
--- NOTE | 2017-11-22 02:15 | Discharge Summary 2 SIG ---
DATE OF ADMISSION: 11/15/2017 DATE OF DISCHARGE: 11/18/2017 REASON FOR ADMISSION: 72-year-old male with a history of high blood pressure presented to emergency department with body pain and generalized weakness for two days. No nausea. No vomiting. No diarrhea. Workup revealed low-grade fever - 99.7 degrees, pulse rate -107, blood pressure - 99/61, and pulse oximetry- 98% on the room air. The patient complained of intractable abdominal pain. The patient undergone chest x-ray, which revealed bilateral apical opacities, probably on the basis of scarring, but mass or infiltrate was not excludable. Recommended CT for further evaluation. No acute process otherwise. CT of the abdomen and pelvis revealed cholelithiasis and choledocholithiasis. Biliary ductal dilatation with concern for common bowel duct obstruction, most likely due to the choledocholithiasis, much less likely due to pancreatic mass. Evidence of chronic calcified pancreatitis. COPD changes of the lung base. Abdominal ultrasound revealed cholelithiasis as described on recent CT. No secondary signs of acute cholecystitis. Biliary ductal dilatation, probably related to choledocholithiasis, better seen on the CT scan, nonvisualization of the pancreas. Laboratory workup at the time of admission revealed sodium -130, BUN -14, and creatinine -2.0. Total bilirubin -3.4. Direct bilirubin- 2.6. AST- 102 and ALT- 41. Lipase-91 , within normal limits. WBC- 29.7 with a hemoglobin -13.1 and hematocrit- 41. Urinalysis revealed no evidence of urinary tract infection. The patient was subsequently admitted with diagnosis of choledocholithiasis with acute cholecystitis with obstruction and acute kidney injury. HOSPITAL COURSE: The patient was admitted to the floor. The patient was kept NPO. The patient was on the IV fluids. GI and surgery consults were requested along with ID specialist. The patient also undergone chest CT. Chest CT revealed COPD changes, bilateral apical parenchymal scarring, presumably accounting for the opacities demonstrated on recent chest radiograph, findings did not appear suspicious for neoplasm. The patient subsequently undergone ERCP with sphincterectomy, dilatation, stone removal, and stent placement. During the ERCP was found choledocholithiasis and distal biliary stricture. Stent was placed with recommendation to remove stent in three months. Biopsy revealed no evidence of malignant cells. The patient was on the IV antibiotics under ID specialist management. Blood cultures were negative. HIDA scan was done on 11/16/2017, which revealed partial biliary obstruction with evidence of significant impediment to biliary flow likely at the level of the common bile duct. Cystic duct obstruction with nonvisualization of the gallbladder. The patient subsequently undergone on 11/17/2017 laparoscopic cholecystectomy due to the acute cholecystitis with choledocholithiasis and cystic duct obstruction and cholangitis. During surgery was found significant inflammatory changes around the gallbladder and distended gallbladder with a significantly thickened peritoneal lining indicative of acute cholecystitis. After surgery, diet was slowly advanced as tolerated. Patient was able to tolerate diet. Antiemetic were on board as needed. Pain management was provided throughout the stay in the hospital. Pain specialist closely followed. Prior to discharge, bilirubin down to normal. AST down to 58 and ALT within normal limits. Leukocytosis resolved. Antibiotic regimen changed to oral upon discharge to complete the course as recommended by ID specialist. Acute kidney injury resolved. Prior to discharge, BUN -9 and creatinine- 1.2. Hemoglobin and hematocrit were closely monitored. Prior to discharge, hemoglobin- 11.6 and hematocrit -32.6. The patient was stable for discharge home. Follow up with the surgeon as recommended by surgeon and primary medical doctor next week. FINAL DIAGNOSES: 1. Choledocholithiasis with acute cholecystitis with obstruction. 2. Acute cholecystitis. 3. Cholangitis. 4. Status post endoscopic retrograde cholangiopancreatography with sphincterectomy, dilatation, stone removal and stent placement. 5. Status post laparoscopic cholecystectomy. 6. Acute kidney injury, resolved. 7. Anemia, mild. DISCHARGE MEDICATIONS: See medication reconciliation list. DISCHARGE INSTRUCTIONS: The patient was discharged home. Follow up with surgeon as advised by surgeon and primary medical doctor next week. Luis Frausto M.D. I have been assigned to dictate discharge summary on this account and I was not involved in the patient's management. Migdalia Hilario (Vanchtein) N.P. DR: CELINE JOB#: [id number] CC: TRACY
== END 2017-11-18 15:00 | disposition home or self-care (01) | DRG 418 ==
LOC: EMR 21:40 → MERGE 11-15 03:35 → 3E 11-15 03:35 → EDBEDREQ 11-15 03:41
DX: K80.43 Calculus of bile duct with acute cholecystitis with obstruction (principal); N17.9 Acute kidney failure, unspecified; E87.1 Hypo-osmolality and hyponatremia; E83.51 Hypocalcemia; I10 Essential (primary) hypertension; D72.829 Elevated white blood cell count, unspecified; D64.9 Anemia, unspecified; Z72.0 Tobacco use
CPT/HCPCS: 36415; 43261; 71010; 71250; 74176; 74328; 76000; 76700; 78266; 80048; 80053; 80076; 81001; 82248; 83690; 85007; 85025; 86710; 87040; 94003; 94150; 94664; 94760; 99285; J2250; J2405; J2765

== ENCOUNTER 2018-04-07 20:38 | Emergency (ER) | payer MEDICARE, MEDICAID ==
[~2018-04-07] VITALS: Ht 30.5 cm; Wt 0.5 kg
[~2018-04-07 20:38] MED LIST changes: +CIPRO500 MG/51 PO; +COLACE100 MG ORAL; +FLAGYL375 MG ORAL; +NORCO 5-325 TA1 EAC1 ORAL
[2018-04-07] MEDS ORDERED: Mylanta II UD 30ml ORAL ONE (21:15)
[2018-04-07] MEDS ORDERED: Isovue-300 100ml vial INJ PRN (21:15)
[2018-04-07] MEDS ORDERED: Morphine Sulfate 4mg/ml Inj IVP ONE (21:15)
[2018-04-07] MEDS ORDERED: Lidocaine 2% Visc 15ml soln ORAL ONE (21:15)
[2018-04-07] MEDS ORDERED: Dicyclomine HCl 10mg/5ml oral soln ORAL ONE (21:15)
[2018-04-07 21:19] LABS: HEMATOCRIT 35.3 % (42.0-52.0); HEMOGLOBIN 12.9 G/DL (14.2-18.0); MEAN CORPUSCULAR VOLUME 93 FL (80-99); PLATELET COUNT 93 K/UL (150-450); RED BLOOD COUNT 3.79 M/UL (4.70-6.10); RED CELL DISTRIBUTION WIDTH 12.5 % (11.6-14.8); WHITE BLOOD COUNT 3.5 K/UL (4.8-10.8)
[2018-04-07 21:27] LABS: ANION GAP 12 mmol/L (5-15); BLOOD UREA NITROGEN 22 mg/dL (7-18); CALCIUM 9.1 MG/DL (8.5-10.1); CARBON DIOXIDE 22 MMOL/L (21-32); CHLORIDE 99 MMOL/L (98-107); POTASSIUM 4.6 MMOL/L (3.5-5.1); SODIUM 133 MMOL/L (136-145)
[2018-04-07 21:30] LABS: INR 0.9 (0.9-1.1)
[2018-04-07 21:31] LABS: ALANINE AMINOTRANSFERASE 20 U/L (12-78); ALBUMIN 3.7 G/DL (3.4-5.0); ALBUMIN/GLOBULIN RATIO 0.7 (1.0-2.7); ALKALINE PHOSPHATASE 140 U/L (46-116); ASPARTATE AMINO TRANSFERASE 22 U/L (15-37); BILIRUBIN,TOTAL 0.3 MG/DL (0.2-1.0)
[2018-04-07] MEDS ORDERED: Sodium Chloride 500ML 500 ML IV ONE (21:45)
[2018-04-07] MEDS ORDERED: XELODA150 MG ORAL (21:49)
--- NOTE | 2018-04-07 22:07 | Emergency Room Report ---
History of Present Illness General Chief Complaint: Abdominal Pain Source: Patient (Otis Ramirez MD) Present Illness HPI Patient is a 72-year-old male who presented after increased epigastric pain radiating to his back. The patient had ERCP previously as well as stent placement.Patient reports having increased pain radiating to his back which is intermittent in nature. Patient was having worsening pain after eating. He denies any changes with exertion. Patient states that he had prior history of cancerous lesion in his abdomen. The patient denies any fever or changes in urination. He denies any black or bloody stools. The patient had been undergoing chemotherapy with Capecitabine. The patient denies any vomiting or bloody stools (Otis Ramirez MD) Allergies: Coded Allergies: No Known Allergies (Unverified , 12/09/12) Patient History Past Medical History: see triage record Reviewed Nursing Documentation: PMH: Agreed; PSxH: Agreed (Otis Ramirez MD) Nursing Documentation-PMH Past Medical History: No History, Except For Hx Cardiac Problems: Yes Hx Hypertension: Yes Hx Cancer: No Hx Gastrointestinal Problems: No - BPH Hx Neurological Problems: No (Otis Ramirez MD) Review of Systems All Other Systems: negative except mentioned in HPI (Otis Ramirez MD) Physical Exam Vital Signs Date Time Temp Pulse Resp B/P (MAP) Pulse Ox O2 Delivery O2 Flow Rate FiO2 04/07/18 20:38 98.0 83 16 98/64 96 Room Air 98.1 Sp02 EP Interpretation: reviewed, normal General Appearance: normal inspection, well appearing, no apparent distress, alert, GCS 15, non-toxic, Chronically Ill Head: atraumatic ENT: normal ENT inspection, hearing grossly normal, normal voice Neck: normal inspection, full range of motion, supple, no bony tend Respiratory: normal inspection, lungs clear, normal breath sounds, no respiratory distress, no retraction, no wheezing Cardiovascular #1: regular rate, rhythm, no edema Gastrointestinal: normal inspection, normal bowel sounds, no guarding, no hernia, tenderness - epigastric Genitourinary: no CVA tenderness Musculoskeletal: normal inspection, back normal, normal range of motion Neurologic: normal inspection, alert, oriented x3, responsive, 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 Differential diagnoses included ischemic bowel, appendicitis, perforated viscus, abdominal aortic aneurysm, inferior myocardial infarction, viral gastroenteritisBecause of complexity of patient's case laboratory testing and imaging studies were ordered. EKG interpreted by me showed normal sinus rhythm with a rate of [address] or T wave changes.The laboratory studies were notable for low white blood count as well as thrombocytopenia. This may be due to patient's recent chemotherapy.The renal function was noted to be have the patient's creatinine was noted be markedly elevated compared patient's baseline from last visit hospitalization Labs Test 04/07/18 20:47 White Blood Count 3.5 K/UL (4.8-10.8) Red Blood Count 3.79 M/UL (4.70-6.10) Hemoglobin 12.9 G/DL (14.2-18.0) Hematocrit 35.3 % (42.0-52.0) Mean Corpuscular Volume 93 FL (80-99) Mean Corpuscular Hemoglobin 34.1 PG (27.0-31.0) Mean Corpuscular Hemoglobin Concent 36.6 G/DL (32.0-36.0) Red Cell Distribution Width 12.5 % (11.6-14.8) Platelet Count 93 K/UL (150-450) Mean Platelet Volume 8.6 FL (6.5-10.1) Neutrophils (%) (Auto) % (45.0-75.0) Lymphocytes (%) (Auto) % (20.0-45.0) Monocytes (%) (Auto) % (1.0-10.0) Eosinophils (%) (Auto) % (0.0-3.0) Basophils (%) (Auto) % (0.0-2.0) Differential Total Cells Counted 100 Neutrophils % (Manual) 59 % (45-75) Lymphocytes % (Manual) 26 % (20-45) Monocytes % (Manual) 14 % (1-10) Eosinophils % (Manual) 1 % (0-3) Basophils % (Manual) 0 % (0-2) Band Neutrophils 0 % (0-8) Platelet Estimate Decreased Platelet Morphology Normal Red Blood Cell Morphology Normal Prothrombin Time 9.7 SEC (9.30-11.50) Prothromb Time International Ratio 0.9 (0.9-1.1) Activated Partial Thromboplast Time 27 SEC (23-33) Sodium Level 133 MMOL/L (136-145) Potassium Level 4.6 MMOL/L (3.5-5.1) Chloride Level 99 MMOL/L (98-107) Carbon Dioxide Level 22 MMOL/L (21-32) Anion Gap 12 mmol/L (5-15) Blood Urea Nitrogen 22 mg/dL (7-18) Creatinine 2.0 MG/DL (0.55-1.30) Estimat Glomerular Filtration Rate mL/min (>60) Glucose Level 108 MG/DL (74-106) Calcium Level 9.1 MG/DL (8.5-10.1) Total Bilirubin 0.3 MG/DL (0.2-1.0) Aspartate Amino Transf (AST/SGOT) 22 U/L (15-37) Alanine Aminotransferase (ALT/SGPT) 20 U/L (12-78) Alkaline Phosphatase 140 U/L (46-116) Troponin I 0.000 ng/mL (0.000-0.056) Total Protein 9.0 G/DL (6.4-8.2) Albumin 3.7 G/DL (3.4-5.0) Globulin 5.3 g/dL Albumin/Globulin Ratio 0.7 (1.0-2.7) Lipase 106 U/L (73-393) (Otis Ramirez MD) ER Course This patient was signed out to me. He presents with epigastric and left upper quadrant pain. CT scan showed chronic changes with chronic pancreatitis. He has no right lower quadrant pain. His said that he get pain every few months. Usually after heavy drinking. He get frequent blood draw since his cancer diagnoses. He just had one done last week and has follow-up on Sunday. Since he is feeling better, he wants to go home. I will discharge him home with his labs. (LUIS A RODRIGEZ M.D.) CT/MRI/US Diagnostic Results CT/MRI/US Diagnostic Results : Imaging Test Ordered: CT abdomen and pelvis Impression read by radiologist. Chronic pancreatitis. common Bile duct stent. (LUIS A RODRIGEZ M.D.) Last Vital Signs Date Time Temp Pulse Resp B/P (MAP) Pulse Ox O2 Delivery O2 Flow Rate FiO2 04/07/18 20:38 98.0 83 16 98/64 96 Room Air 98.1 Status: improved (Otis Ramirez MD) Status: improved (LUIS A RODRIGEZ M.D.) Disposition: HOME, SELF-CARE Condition: Stable Scripts Hydrocodone/Acetaminophen 5-325* (HYDROCODONE/ACETAMINOPHEN 5-325*) 1 Each Tablet 1 TAB ORAL Q6H PRN for For Pain, #20 TAB 0 Refills Prov: LUIS A RODRIGEZ M.D. 04/08/18 [place] [facility] [place] Additional Instructions: Keep your appointment on Sunday with your doctor. Bring the lab tests with you. Return if worse. Stop drinking alcohol. Otis Ramirez MD April 07, 2018 22:07 LUIS A RODRIGEZ M.D. April 08, 2018 00:01
[2018-04-07 23:38] LABS: APPEARANCE,URINE CLEAR; BILIRUBIN, URINE NEGATIVE (NEGATIVE); COLOR,URINE PALE YELLOW; GLUCOSE, URINE (UA) NEGATIVE (NEGATIVE); KETONES,URINE NEGATIVE (NEGATIVE); LEUKOCYTE ESTERASE ,URINE NEGATIVE (NEGATIVE); NITRITE,URINE NEGATIVE (NEGATIVE); PH,URINE 6 (4.5-8.0); PROTEIN,URINE NEGATIVE (NEGATIVE); UROBILINOGEN,URINE NORMAL MG/DL (0.0-1.0)
[2018-04-08] MEDS ORDERED: HYDROCODON-ACE1 EA15 ORAL (00:01)
[2018-04-08 00:03] VITALS: BP 108/74
[2018-04-08 00:04] VITALS: BP 98/64
--- NOTE | 2018-04-08 09:15 | Diagnostic Imaging Report ---
Indication: Abdominal pain Technique: Continuous helical transaxial imaging of the abdomen and pelvis was obtained from the lung bases to the pubic symphysis. No intravenous contrast was administered. Coronal 2-D reformats were also obtained. Automatic Exposure Control was utilized. Total Dose length Product (DLP): 533.[address] Dose Index Volume (CTDIvol): 10.45 mGy Comparison: 12/26/2012 Findings: The upper pole of the right kidney has been resected on a prior occasion for tumor. Some dystrophic calcium noted at the resection site along the anterior upper margin of the kidney. There is no adrenal mass or adenopathy appreciated on this noncontrast study which is suboptimal for evaluation in the setting of prior malignancy. There is a CBD stent present. Pneumobilia indicates stent patency most likely. There are calcifications within atrophic pancreas consistent with chronic pancreatitis. Aorta is moderately calcified. There is no free fluid or free air. The appendix is prominent in size but there is no inflammation. An appendicolith noted within the tip of the appendix. No evidence of bowel obstruction. The lung bases are clear. IMPRESSION: Slightly prominent appendix with no periappendiceal inflammation. Findings may be normal. Early acute appendicitis is not excluded. Correlate clinically and repeat imaging as needed. Chronic calcific pancreatitis CBD stent. Pneumobilia is generally a reassuring sign of stent patency. 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 Limited evaluation due to lack of IV contrast. There is a abnormal trabecular thickening right hemipelvis, nonspecific finding. [facility] has communicated the preliminary results to the Emergency Department. Their findings are largely concordant with this report. The CT scanner at [facility] is accredited by the [employer] and the scans are performed using dose optimization techniques as appropriate to a performed exam including Automatic Exposure control.
--- NOTE | 2018-04-08 10:43 | Diagnostic Imaging Report ---
Indication: Dyspnea Comparison: 08/14/2017 A single view chest radiograph was obtained. Findings: Cardiomediastinal appearance is within normal limits for age. Pulmonary vascularity is appropriate. The diaphragmatic contour is smooth and costophrenic angles are sharp. No pleural effusions are identified. The bones are unremarkable. Impression: No acute findings
--- NOTE | 2018-04-08 13:50 | Cardiology Report ---
APPROVED REPORT EKG Measurement Heart [id number] Normal sinus rhythm Anteroseptal infarct, age undetermined Abnormal ECG
== END 2018-04-08 00:17 | disposition home or self-care (01) ==
LOC: EMR 20:45
DX: J44.9 Chronic obstructive pulmonary disease, unspecified (principal); N17.9 Acute kidney failure, unspecified; K85.20 Alcohol induced acute pancreatitis without necrosis or infection; I10 Essential (primary) hypertension
CPT/HCPCS: 36415; 71045; 74176; 80053; 81003; 83690; 84484; 85007; 85025; 85610; 85730; 86850; 86900; 86901; 93005; 96374; 96375; 99284; J2270; J2405

== ENCOUNTER 2018-04-21 19:16 | Emergency (ER) | payer MEDICARE, MEDICAID ==
[~2018-04-21] VITALS: Ht 185.4 cm; Wt 78.9 kg
[~2018-04-21 19:16] MED LIST changes: +HYDROCODON-ACE1 EA15 ORAL; +XELODA150 MG ORAL
[2018-04-21 19:50] VITALS: BP 101/64
[2018-04-21] MEDS ORDERED: Sodium Chloride 500ML 500 ML IV ONE (20:09)
[2018-04-21 20:29] LABS: BASOPHILS % (AUTO) 0.8 % (0.0-2.0); EOSINOPHILS % (AUTO) 0.9 % (0.0-3.0); HEMATOCRIT 34.4 % (42.0-52.0); HEMOGLOBIN 12.2 G/DL (14.2-18.0); LYMPHOCYTES % (AUTO) 20.2 % (20.0-45.0); MEAN CORPUSCULAR VOLUME 93 FL (80-99); NEUTROPHILS % (AUTO) 65.1 % (45.0-75.0); PLATELET COUNT 130 K/UL (150-450); RED BLOOD COUNT 3.68 M/UL (4.70-6.10); RED CELL DISTRIBUTION WIDTH 11.6 % (11.6-14.8); WHITE BLOOD COUNT 5.6 K/UL (4.8-10.8)
[2018-04-21 20:40] LABS: ANION GAP 7 mmol/L (5-15); BLOOD UREA NITROGEN 23 mg/dL (7-18); CALCIUM 9.3 MG/DL (8.5-10.1); CARBON DIOXIDE 26 MMOL/L (21-32); CHLORIDE 97 MMOL/L (98-107); CREATININE 1.9 MG/DL (0.55-1.30); POTASSIUM 4.3 MMOL/L (3.5-5.1); SODIUM 130 MMOL/L (136-145)
[2018-04-21 20:45] LABS: ALANINE AMINOTRANSFERASE 72 U/L (12-78); ALBUMIN 3.3 G/DL (3.4-5.0); ALBUMIN/GLOBULIN RATIO 0.6 (1.0-2.7); ALKALINE PHOSPHATASE 278 U/L (46-116); ASPARTATE AMINO TRANSFERASE 59 U/L (15-37); BILIRUBIN,TOTAL 0.5 MG/DL (0.2-1.0)
[2018-04-21] MEDS ORDERED: AMOXICILLIN500 MG ORAL (21:13)
[2018-04-21 21:21] VITALS: BP 101/64
--- NOTE | 2018-04-21 21:40 | Emergency Room Report ---
History of Present Illness General Chief Complaint: Upper Respiratory Illness Source: Patient, Medical Record Present Illness HPI 72-year-old male presents ED for evaluation. Patient states he's been feeling weak with congestion and cough for the last 2 weeks. Admits to smoking history. Cough is productive with yellowish phlegm. Denies fevers or chills. States he feels dehydrated. Denies chest pain or shortness of breath. No other aggravating relieving factors. Denies any other associated symptoms Allergies: Coded Allergies: No Known Allergies (Unverified , 12/09/12) Patient History Past Medical History: HTN Past Surgical History: none Pertinent Family History: none Social History: Denies: smoking, alcohol use, drug use Immunizations: UTD Reviewed Nursing Documentation: PMH: Agreed; PSxH: Agreed Nursing Documentation-PMH Past Medical History: No History, Except For Hx Cardiac Problems: Yes Hx Hypertension: Yes Hx Cancer: No Hx Gastrointestinal Problems: No - BPH Hx Neurological Problems: No Review of Systems All Other Systems: negative except mentioned in HPI Physical Exam Vital Signs Date Time Temp Pulse Resp B/P (MAP) Pulse Ox O2 Delivery O2 Flow Rate FiO2 04/21/18 19:38 98.1 97 16 101/64 97 Room Air 98.1 Sp02 EP Interpretation: reviewed, normal General Appearance: no apparent distress, alert, GCS 15, non-toxic Head: normocephalic, atraumatic Eyes: bilateral eye normal inspection, bilateral eye PERRL ENT: hearing grossly normal, normal pharynx, no angioedema, normal voice Neck: full range of motion, supple/symm/no masses Respiratory: chest non-tender, lungs clear, normal breath sounds, speaking full sentences Cardiovascular #1: regular rate, rhythm, no edema Cardiovascular #2: 2+ carotid (R), 2+ carotid (L), 2+ radial (R), 2+ radial (L) , 2+ dorsalis pedis (R), 2+ dorsalis pedis (L) Gastrointestinal: normal bowel sounds, non tender, soft, non-distended, no guarding, no rebound Rectal: deferred Genitourinary: normal inspection, no CVA tenderness Musculoskeletal: back normal, gait/station normal, normal range of motion, non- tender Neurologic: alert, oriented x3, responsive, motor strength/tone normal, sensory intact, speech normal Psychiatric: judgement/insight normal, memory normal, mood/affect normal, no suicidal/homicidal ideation Reflexes: 3+ bicep (R), 3+ bicep (L), 3+ tricep (R), 3+ tricep (L), 3+ knee (R) , 3+ knee (L) Skin: normal color, no rash, warm/dry, well hydrated Lymphatic: no adenopathy Medical Decision Making Diagnostic Impression: Primary Impression: PARAS (acute kidney injury) Additional Impression: COPD (chronic obstructive pulmonary disease) Qualified Codes: J42 - Unspecified chronic bronchitis ER Course Hospital Course 72-year-old male presents ED with cough, congestion, feeling weak Differential diagnoses include: URI, bronchitis, asthma/COPD, pneumonia Clinical course Patient placed on stretcher. After initial history, physical exam reveals an elderly male in no acute distress. Bilateral TM unremarkable. No pharyngeal erythema. No tonsillar exudates. No lymphadenopathy. lungs clear. I ordered labs, IV fluids, chest x-ray. Labs reviewed-no leukocytosis, hemoglobin/hematocrit stable, Na 130, Cr 1.9 Chest x-ray shows increased atelectasis in lower lung [place] compared to recent visit I discussed findings with the patient. In October creatinine was 1.2. Patient was seen here in late March and at that time creatinine was 2.0. Patient has not had lab work done been between. Patient states he is scheduled to see his PMD in May. I asked patient if he is feeling better and he says he is feeling better. He wishes to be discharged Given atelectasis changes and history of smoking we'll prescribe antibiotics. Patient given copy of his lab work Diagnosis - PARAS, COPD Stable and discharged home with prescriptions for amoxicillin. Instructed to followup with PMD. Return to ED if symptoms recur or worsen Labs Test 04/21/18 20:15 White Blood Count 5.6 K/UL (4.8-10.8) Red Blood Count 3.68 M/UL (4.70-6.10) Hemoglobin 12.2 G/DL (14.2-18.0) Hematocrit 34.4 % (42.0-52.0) Mean Corpuscular Volume 93 FL (80-99) Mean Corpuscular Hemoglobin 33.2 PG (27.0-31.0) Mean Corpuscular Hemoglobin Concent 35.5 G/DL (32.0-36.0) Red Cell Distribution Width 11.6 % (11.6-14.8) Platelet Count 130 K/UL (150-450) Mean Platelet Volume 7.7 FL (6.5-10.1) Neutrophils (%) (Auto) 65.1 % (45.0-75.0) Lymphocytes (%) (Auto) 20.2 % (20.0-45.0) Monocytes (%) (Auto) 13.0 % (1.0-10.0) Eosinophils (%) (Auto) 0.9 % (0.0-3.0) Basophils (%) (Auto) 0.8 % (0.0-2.0) Sodium Level 130 MMOL/L (136-145) Potassium Level 4.3 MMOL/L (3.5-5.1) Chloride Level 97 MMOL/L (98-107) Carbon Dioxide Level 26 MMOL/L (21-32) Anion Gap 7 mmol/L (5-15) Blood Urea Nitrogen 23 mg/dL (7-18) Creatinine 1.9 MG/DL (0.55-1.30) Estimat Glomerular Filtration Rate mL/min (>60) Glucose Level 163 MG/DL (74-106) Calcium Level 9.3 MG/DL (8.5-10.1) Total Bilirubin 0.5 MG/DL (0.2-1.0) Aspartate Amino Transf (AST/SGOT) 59 U/L (15-37) Alanine Aminotransferase (ALT/SGPT) 72 U/L (12-78) Alkaline Phosphatase 278 U/L (46-116) Total Protein 8.6 G/DL (6.4-8.2) Albumin 3.3 G/DL (3.4-5.0) Globulin 5.3 g/dL Albumin/Globulin Ratio 0.6 (1.0-2.7) Chest X-Ray Diagnostic Results Chest X-Ray Diagnostic Results : Chest X-Ray Ordered: Yes # of Views/Limited/Complete: 1 View Indication: Other - cough EP Interpretation: Yes Interpretation: no pneumothorax, other - increased atelecatsis Impression: Other - atelecatasis/ifniltrate Electronically Signed by: Electronically signed by Slim Mcfadden MD Last Vital Signs Date Time Temp Pulse Resp B/P (MAP) Pulse Ox O2 Delivery O2 Flow Rate FiO2 6/3/18 21:21 98.1 16 101/64 97 Room Air 98.1 04/21/18 19:50 97 Status: improved Disposition: HOME, SELF-CARE Condition: Stable Scripts Amoxicillin* (AMOXIL*) 500 Mg Capsule 500 MG ORAL THREE TIMES A DAY, #21 CAP Prov: Slim Mcfadden MD 04/21/18 Patient Instructions: Acute Bronchitis, [id number] Slim Mcfadden MD Apr 21, 2018 21:40
--- NOTE | 2018-04-22 12:04 | Diagnostic Imaging Report ---
Indication: Cough Technique: One view of the chest Comparison: 04/07/2018 Findings: 2.5 cm opacity in the right hilar region, equivocally present on earlier studies but more striking currently, is noted. Fibronodular scarring left lung apex is again demonstrated. The lungs and pleural spaces are otherwise clear. There is mild central bronchial wall thickening. The heart size is normal. Impression: Possible right hilar opacity, not definitely evident previously. Recommend further evaluation with chest CT. This was discussed by phone with Dr. Pardo in the emergency room at the time of interpretation No acute process otherwise
== END 2018-04-21 21:21 | disposition home or self-care (01) ==
LOC: EMR 20:00
DX: J42 Unspecified chronic bronchitis (principal); N17.9 Acute kidney failure, unspecified; I10 Essential (primary) hypertension; N40.0 Benign prostatic hyperplasia without lower urinary tract symptoms
CPT/HCPCS: 36415; 71045; 80053; 85025; 96374; 96375; 99283

== ENCOUNTER 2018-04-26 17:28 | Emergency (ER) | payer MEDICARE, MEDICAID ==
[~2018-04-26] VITALS: Ht 185.4 cm; Wt 69.9 kg
[~2018-04-26 17:28] MED LIST changes: +AMOXICILLIN500 MG ORAL
[2018-04-26 18:00] VITALS: BP 116/75
[2018-04-26] MEDS ORDERED: Isovue-300 100ml vial INJ PRN (18:30)
[2018-04-26] MEDS ORDERED: Albuterol ud Inhalation HHN ONE ×2 (18:30→21:00)
[2018-04-26] MEDS ORDERED: Ipratropium 0.02% Inh Soln 2.5ml UD HHN ONE (18:30)
[2018-04-26] MEDS ORDERED: Promethazine/Codeine 5ml UD ORAL ONE (18:30)
[2018-04-26] MEDS ORDERED: Solu-MEDROL 125mg Inj IVP ONE (18:30)
[2018-04-26 18:51] LABS: BASOPHILS % (AUTO) 1.2 % (0.0-2.0); HEMATOCRIT 32.1 % (42.0-52.0); HEMOGLOBIN 11.6 G/DL (14.2-18.0); LYMPHOCYTES % (AUTO) 25.8 % (20.0-45.0); MEAN CORPUSCULAR VOLUME 95 FL (80-99); MONOCYTES % (AUTO) 19.1 % (1.0-10.0); NEUTROPHILS % (AUTO) 52.9 % (45.0-75.0); PLATELET COUNT 147 K/UL (150-450); RED BLOOD COUNT 3.39 M/UL (4.70-6.10); RED CELL DISTRIBUTION WIDTH 11.9 % (11.6-14.8); WHITE BLOOD COUNT 4.9 K/UL (4.8-10.8)
[2018-04-26 19:03] LABS: ANION GAP 9 mmol/L (5-15); BLOOD UREA NITROGEN 18 mg/dL (7-18); CALCIUM 9.5 MG/DL (8.5-10.1); CARBON DIOXIDE 24 MMOL/L (21-32); CHLORIDE 101 MMOL/L (98-107); CREATININE 1.4 MG/DL (0.55-1.30); POTASSIUM 4.7 MMOL/L (3.5-5.1); SODIUM 134 MMOL/L (136-145)
[2018-04-26 19:06] LABS: INR 0.9 (0.9-1.1)
--- NOTE | 2018-04-26 19:08 | Emergency Room Report ---
History of Present Illness General Chief Complaint: Upper Respiratory Illness Source: Patient, Family Member Present Illness HPI The patient's had several episodes of a severe cough over the last 48 hours. He coughs to the point where he is almost passing out and has severe pain in his chest during that time. He was recently seen and diagnosed with bronchitis. The chest x-ray was reported that he had some hilar mass and therefore CT was indicated. I called the patient and told him this. The CT is scheduled for next Sunday however he still has severe cough with chest pain. No color to sputum. No hemoptysis. No night sweats unintentional weight loss. No prior h/o TB. The patient was initially seen April 07. He has COPD. He has an inhaler. He was seen April 21 and diagnosed with acute kidney injury with a creatinine of 1.9. 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 Reviewed Nursing Documentation: PMH: Agreed; PSxH: Agreed Nursing Documentation-PMH Past Medical History: No History, Except For Hx Cardiac Problems: Yes Hx Hypertension: Yes Hx Cancer: No Hx Gastrointestinal Problems: No - BPH Hx Neurological Problems: No Review of Systems All Other Systems: negative except mentioned in HPI Physical Exam Vital Signs Date Time Temp Pulse Resp B/P (MAP) Pulse Ox O2 Delivery O2 Flow Rate FiO2 04/26/18 17:34 98.2 82 19 126/77 95 Room Air 98.2 04/26/18 18:50 21 Sp02 EP Interpretation: reviewed, normal General Appearance: well appearing, no apparent distress, GCS 15 Head: normocephalic Eyes: bilateral eye normal inspection, bilateral eye PERRL ENT: moist mucus membranes Neck: supple Respiratory: wheezing, expiration Cardiovascular #1: regular rate, rhythm Cardiovascular #2: 2+ radial (R) Gastrointestinal: normal inspection, normal bowel sounds, non tender, no mass, non-distended Musculoskeletal: back normal, gait/station normal, normal range of motion Neurologic: alert, oriented x3, grossly normal Psychiatric: mood/affect normal Skin: normal inspection, warm/dry Medical Decision Making Diagnostic Impression: Primary Impression: COPD exacerbation Additional Impressions: Apical lung scarring Chest pain Qualified Codes: R07.9 - Chest pain, unspecified Pulmonary nodule Chronic renal insufficiency Qualified Codes: N28.9 - Disorder of kidney and ureter, unspecified ER Course Patient presents with cough. There is a history of an abnormal chest x-ray. He has severe pain when the cough occurs. Differential includes bronchitis, chest mass, acute coronary syndrome, pneumothorax amongst others. Evaluation will be with EKG, CT of the chest and labs. The patient will be given breathing treatments and Phenergan with codeine. Even with h/o renal disease, contrast is indicated for CT. EKG without injury. Labs with elevated lactic acid and creatinine that is improved. CT chest with emphysematous changes biapical scarring and a nodule with cavitation at the left apex. Patient is improved with treatment. However he still has chest pain and episodic paroxysms of coughing. The codeine has helped. Levaquin given here. The patient was discussed with Dr. Lala at [facility]. He's transferred for observation there and further evaluation. Laboratory Tests Test 04/26/18 18:30 04/26/18 19:35 White Blood Count 4.9 K/UL (4.8-10.8) Red Blood Count 3.39 M/UL (4.70-6.10) L Hemoglobin 11.6 G/DL (14.2-18.0) L Hematocrit 32.1 % (42.0-52.0) L Mean Corpuscular Volume 95 FL (80-99) Mean Corpuscular Hemoglobin 34.2 PG (27.0-31.0) H Mean Corpuscular Hemoglobin Concent 36.2 G/DL (32.0-36.0) H Red Cell Distribution Width 11.9 % (11.6-14.8) Platelet Count 147 K/UL (150-450) L Mean Platelet Volume 7.0 FL (6.5-10.1) Neutrophils (%) (Auto) 52.9 % (45.0-75.0) Lymphocytes (%) (Auto) 25.8 % (20.0-45.0) Monocytes (%) (Auto) 19.1 % (1.0-10.0) H Eosinophils (%) (Auto) 1.0 % (0.0-3.0) Basophils (%) (Auto) 1.2 % (0.0-2.0) Prothrombin Time 9.7 SEC (9.30-11.50) Prothrombin Time INR 0.9 (0.9-1.1) PTT 27 SEC (23-33) Sodium Level 134 MMOL/L (136-145) L Potassium Level 4.7 MMOL/L (3.5-5.1) Chloride Level 101 MMOL/L (98-107) Carbon Dioxide Level 24 MMOL/L (21-32) Anion Gap 9 mmol/L (5-15) Blood Urea Nitrogen 18 mg/dL (7-18) Creatinine 1.4 MG/DL (0.55-1.30) H Estimate Glomerular Filtration Rate mL/min (>60) Glucose Level 123 MG/DL (74-106) H Lactic Acid Level 2.30 mmol/L (0.4-2.0) H Calcium Level 9.5 MG/DL (8.5-10.1) Total Bilirubin 0.3 MG/DL (0.2-1.0) Aspartate Amino Transferase (AST) 50 U/L (15-37) H Alanine Aminotransferase (ALT) 62 U/L (12-78) Alkaline Phosphatase 302 U/L (46-116) H Total Creatine Kinase 63 U/L (26-308) Troponin I 0.000 ng/mL (0.000-0.056) Pro-B-Type Natriuretic Peptide 167 pg/mL (0-125) H Total Protein 8.7 G/DL (6.4-8.2) H Albumin 3.3 G/DL (3.4-5.0) L Globulin 5.4 g/dL Albumin/Globulin Ratio 0.6 (1.0-2.7) L Urine Color Pale yellow Urine Appearance Clear Urine pH 6.5 (4.5-8.0) Urine Specific [place] 1.010 (1.005-1.035) Urine Protein Negative (NEGATIVE) Urine Glucose (UA) Negative (NEGATIVE) Urine Ketones Negative (NEGATIVE) Urine Occult Blood Negative (NEGATIVE) Urine Nitrite Negative (NEGATIVE) Urine Bilirubin Negative (NEGATIVE) Urine Urobilinogen Normal MG/DL (0.0-1.0) Urine Leukocyte Esterase Negative (NEGATIVE) EKG Diagnostic Results Rate: normal Rhythm: NSR ST Segments: no acute changes Rhythm Strip Diag. Results EP Interpretation: yes Rhythm: NSR, no PVC's, no ectopy CT/MRI/US Diagnostic Results CT/MRI/US Diagnostic Results : Imaging Test Ordered: Chest Impression No hilar mass identified. Emphysematous lung disease with bibasilar bronchiectasis and bronchiolitis. Biapical scarring with 2.3 cm nodule demonstrating some cavitation at the left lung apex Last Vital Signs Date Time Temp Pulse Resp B/P (MAP) Pulse Ox O2 Delivery O2 Flow Rate FiO2 04/26/18 22:48 98.2 69 17 115/61 96 Room Air 98.2 04/26/18 21:31 21 Status: improved [facility] Condition: Serious Referrals: [email or web address],REFERRING (PCP) Parveen Pardo M.D. Apr 26, 2018 19:08
[2018-04-26 19:15] LABS: ALANINE AMINOTRANSFERASE 62 U/L (12-78); ALBUMIN 3.3 G/DL (3.4-5.0); ALBUMIN/GLOBULIN RATIO 0.6 (1.0-2.7); ALKALINE PHOSPHATASE 302 U/L (46-116); ASPARTATE AMINO TRANSFERASE 50 U/L (15-37); BILIRUBIN,TOTAL 0.3 MG/DL (0.2-1.0); CREATINE KINASE 63 U/L (26-308)
[2018-04-26 19:30] VITALS: BP 120/74
[2018-04-26 20:22] LABS: APPEARANCE,URINE CLEAR; BILIRUBIN, URINE NEGATIVE (NEGATIVE); COLOR,URINE PALE YELLOW; GLUCOSE, URINE (UA) NEGATIVE (NEGATIVE); KETONES,URINE NEGATIVE (NEGATIVE); LEUKOCYTE ESTERASE ,URINE NEGATIVE (NEGATIVE); NITRITE,URINE NEGATIVE (NEGATIVE); PH,URINE 6.5 (4.5-8.0); PROTEIN,URINE NEGATIVE (NEGATIVE); UROBILINOGEN,URINE NORMAL MG/DL (0.0-1.0)
--- NOTE | 2018-04-26 20:32 | Diagnostic Imaging Report ---
EXAM: CT Chest With Intravenous Contrast CLINICAL HISTORY: MASS TECHNIQUE: Axial computed tomography images of the chest with intravenous contrast. CTDI is 13 mGy and DLP is 501 mGy-cm. One or more of the following dose reduction techniques were used: automated exposure control, adjustment of the mA and/or kV according to patient size, use of iterative reconstruction technique. COMPARISON: Chest radiograph dated 04/21/18. FINDINGS: Lungs: Centrilobular emphysematous disease is seen in the upper lungs bilaterally. There are multiple bilateral subpleural emphysematous blebs seen. A 2.3 x 1.3 cm left apical nodule with cavitation is seen image 8 series 5. This demonstrates some peripheral calcification indicating it may be chronic and inflammatory. There is linear bandlike fibrosis at the right lung apex. Bibasilar bronchiectasis is seen with multifocal reticular groundglass opacities. No right hilar mass is identified. Pleural space: Unremarkable. No pneumothorax. No significant effusion. Heart: Unremarkable. No cardiomegaly. No significant pericardial effusion. Bones/joints: There is an old fracture of the posterior right fifth rib. There are degenerative changes of the thoracic spine. No dislocation. Soft tissues: Unremarkable. Vasculature: Coronary artery atherosclerosis. There is atherosclerosis of the abdominal aorta. No thoracic aortic aneurysm. Lymph nodes: Unremarkable. No enlarged lymph nodes. Gallbladder and bile ducts: A stent is present in the common bile duct. There is intrahepatic and extra hepatic biliary duct dilation. The gallbladder is surgically absent. Pancreas: Calcifications are seen within the distal pancreatic duct measuring up to 2 mm. Kidneys and ureters: A tiny focus of decreased attenuation is seen in the upper pole of the left kidney too small to characterize by CT criteria. Postsurgical changes seen at the upper pole of the right kidney. IMPRESSION: 1. No right hilar mass lesion is identified. 2. Emphysematous lung disease with bibasilar bronchiectasis and bronchiolitis. 3. Biapical scarring with 2.3 cm nodule demonstrating some cavitation at the left lung apex. Suggest short-term follow-up chest CT within 3 months to confirm stability. 4. Biliary duct dilation with multiple calcifications in the distal pancreatic duct. Common bile duct stent in position.
[2018-04-26] MEDS ORDERED: guaiFENesin w/Codeine 5ml Liq ud ORAL STA (20:54)
[2018-04-26 21:25] VITALS: BP 136/72
[2018-04-26 22:30] VITALS: BP 115/61
[2018-04-26 22:48] VITALS: BP 115/61
--- NOTE | 2018-04-30 14:20 | Cardiology Report ---
APPROVED REPORT EKG Measurement Heart [id number] Sinus rhythm with premature atrial complexes Otherwise normal ECG
== END 2018-04-26 22:48 | disposition short-term general hospital (02) ==
LOC: EMR 19:01
DX: J44.1 Chronic obstructive pulmonary disease with (acute) exacerbation (principal); J98.4 Other disorders of lung; I12.9 Hypertensive chronic kidney disease with stage 1 through stage 4 chronic kidney disease, or unspecified chronic kidney disease; N18.9 Chronic kidney disease, unspecified; R91.8 Other nonspecific abnormal finding of lung field
CPT/HCPCS: 36415; 71260; 80053; 81003; 82550; 83605; 83880; 84484; 85025; 85610; 85730; 93005; 94640; 94664; 96361; 96365; 96375; 99285; J1956; J2930; Q9967

== ENCOUNTER 2018-06-10 20:30 | Emergency (ER) | payer MEDICARE, MEDICAID ==
[~2018-06-10] VITALS: Ht 185.4 cm; Wt 71.7 kg
[2018-06-10 20:53] VITALS: BP 130/60
[2018-06-10 21:08] LABS: APPEARANCE,URINE CLEAR; BILIRUBIN, URINE NEGATIVE (NEGATIVE); COLOR,URINE PALE YELLOW; GLUCOSE, URINE (UA) NEGATIVE (NEGATIVE); KETONES,URINE NEGATIVE (NEGATIVE); LEUKOCYTE ESTERASE ,URINE NEGATIVE (NEGATIVE); NITRITE,URINE NEGATIVE (NEGATIVE); PH,URINE 7 (4.5-8.0); PROTEIN,URINE NEGATIVE (NEGATIVE); UROBILINOGEN,URINE NORMAL MG/DL (0.0-1.0)
[2018-06-10 21:47] LABS: HEMATOCRIT 34.4 % (42.0-52.0); MEAN CORPUSCULAR VOLUME 99 FL (80-99); PLATELET COUNT 77 K/UL (150-450); RED BLOOD COUNT 3.49 M/UL (4.70-6.10); RED CELL DISTRIBUTION WIDTH 13.5 % (11.6-14.8); WHITE BLOOD COUNT 6.2 K/UL (4.8-10.8)
[2018-06-10 21:51] LABS: ANION GAP 11 mmol/L (5-15); BLOOD UREA NITROGEN 24 mg/dL (7-18); CALCIUM 9.2 MG/DL (8.5-10.1); CARBON DIOXIDE 24 MMOL/L (21-32); CHLORIDE 101 MMOL/L (98-107); CREATININE 1.7 MG/DL (0.55-1.30); POTASSIUM 4.3 MMOL/L (3.5-5.1); SODIUM 136 MMOL/L (136-145)
[2018-06-10 22:07] LABS: ALANINE AMINOTRANSFERASE 75 U/L (12-78); ALBUMIN 3.6 G/DL (3.4-5.0); ALBUMIN/GLOBULIN RATIO 0.8 (1.0-2.7); ALKALINE PHOSPHATASE 267 U/L (46-116); ASPARTATE AMINO TRANSFERASE 48 U/L (15-37); BILIRUBIN,TOTAL 0.8 MG/DL (0.2-1.0); CKMB 0.5 NG/ML (0.0-3.6); CREATINE KINASE 30 U/L (26-308)
[2018-06-10] MEDS ORDERED: HYDROmorphone 1mg/ml Carpuject IVP ONE (22:15)
[2018-06-10 22:17] VITALS: BP 141/71
[2018-06-11] MEDS ORDERED: Hydromorphone 0.5mg/0.5ml inj IVP ONE (00:15)
--- NOTE | 2018-06-11 00:19 | Emergency Room Report ---
History of Present Illness General Chief Complaint: Abdominal Pain Source: Family Member Present Illness HPI Patient present with complaints of bilateral upper abdominal pain Radiation towards the back Patient has several episodes of nausea vomiting Denies any chest pain or shortness of breath Denies any lower abdominal pain denies any dysuria frequency Pain is 10 out of 10 sharp Denies any fall or trauma Allergies: Coded Allergies: No Known Allergies (Unverified , 12/09/12) Patient History Past Medical History: see triage record Pertinent Family History: none Reviewed Nursing Documentation: PMH: Agreed; PSxH: Agreed Nursing Documentation-PMH Hx Cardiac Problems: Yes Hx Hypertension: Yes Hx Cancer: Yes - Takes Chemo gallbladder Hx Gastrointestinal Problems: No - BPH, Gallbladder removed Hx Neurological Problems: No Review of Systems All Other Systems: negative except mentioned in HPI Physical Exam Vital Signs Date Time Temp Pulse Resp B/P (MAP) Pulse Ox O2 Delivery O2 Flow Rate FiO2 06/10/18 20:38 98.3 93 14 115/68 97 Room Air 98.2 Sp02 EP Interpretation: reviewed, normal General Appearance: mild distress - In pain Head: normocephalic, atraumatic Eyes: bilateral eye PERRL, bilateral eye EOMI ENT: hearing grossly normal, normal pharynx, TMs + canals normal, uvula midline Neck: full range of motion, supple, no meningismus, no bony tend Respiratory: lungs clear, normal breath sounds, no rhonchi, no respiratory distress, no retraction, no accessory muscle use Cardiovascular #1: normal peripheral pulses, regular rate, rhythm, no edema, no gallop, no JVD, no murmur Gastrointestinal: normal bowel sounds, soft, no mass, no organomegaly, non- distended, no guarding, no hernia, no pulsatile mass, no rebound, tenderness - Mainly in the epigastric area Genitourinary: no CVA tenderness Musculoskeletal: normal inspection Neurologic: oriented x3, responsive, restorative coordinator III-XII nml as tested, motor strength/ tone normal, sensory intact Psychiatric: mood/affect normal Skin: normal color, no rash, warm/dry, palpation normal Lymphatic: normal inspection, no adenopathy Medical Decision Making Diagnostic Impression: Primary Impression: Pancreatitis Additional Impression: Abdominal pain ER Course With the history exam and presentation, multiple differentials considered, including but not limited to appendicitis, gastritis, cholecystitis, diverticulitis Patient has CAT scan imaging obtained CT reports evidence of acute pancreatitis Patient's lipase count is also elevated at over 800 Patient received IV hydration further pain medicine At this time there are no signs of any obvious infectious pathology Secondary to insurance purposes a short transferred for continued inpatient care Labs Test 06/10/18 20:42 06/10/18 21:26 Urine Color Pale yellow Urine Appearance Clear Urine pH 7 (4.5-8.0) Urine Specific [place] 1.005 (1.005-1.035) Urine Protein Negative (NEGATIVE) Urine Glucose (UA) Negative (NEGATIVE) Urine Ketones Negative (NEGATIVE) Urine Occult Blood 1+ (NEGATIVE) Urine Nitrite Negative (NEGATIVE) Urine Bilirubin Negative (NEGATIVE) Urine Urobilinogen Normal MG/DL (0.0-1.0) Urine Leukocyte Esterase Negative (NEGATIVE) Urine RBC 2-4 /HPF (0 - 0) Urine WBC 0-2 /HPF (0 - 0) Urine Squamous Epithelial Cells None /LPF (NONE/OCC) Urine Bacteria Few /HPF (NONE) White Blood Count 6.2 K/UL (4.8-10.8) Red Blood Count 3.49 M/UL (4.70-6.10) Hemoglobin 12.0 G/DL (14.2-18.0) Hematocrit 34.4 % (42.0-52.0) Mean Corpuscular Volume 99 FL (80-99) Mean Corpuscular Hemoglobin 34.4 PG (27.0-31.0) Mean Corpuscular Hemoglobin Concent 34.9 G/DL (32.0-36.0) Red Cell Distribution Width 13.5 % (11.6-14.8) Platelet Count 77 K/UL (150-450) Mean Platelet Volume 8.1 FL (6.5-10.1) Neutrophils (%) (Auto) % (45.0-75.0) Lymphocytes (%) (Auto) % (20.0-45.0) Monocytes (%) (Auto) % (1.0-10.0) Eosinophils (%) (Auto) % (0.0-3.0) Basophils (%) (Auto) % (0.0-2.0) Differential Total Cells Counted 100 Neutrophils % (Manual) 90 % (45-75) Lymphocytes % (Manual) 7 % (20-45) Monocytes % (Manual) 2 % (1-10) Eosinophils % (Manual) 0 % (0-3) Basophils % (Manual) 0 % (0-2) Band Neutrophils 1 % (0-8) Platelet Estimate Decreased Platelet Morphology Normal Red Blood Cell Morphology Normal Sodium Level 136 MMOL/L (136-145) Potassium Level 4.3 MMOL/L (3.5-5.1) Chloride Level 101 MMOL/L (98-107) Carbon Dioxide Level 24 MMOL/L (21-32) Anion Gap 11 mmol/L (5-15) Blood Urea Nitrogen 24 mg/dL (7-18) Creatinine 1.7 MG/DL (0.55-1.30) Estimat Glomerular Filtration Rate mL/min (>60) Glucose Level 188 MG/DL (74-106) Lactic Acid Level 1.30 mmol/L (0.4-2.0) Calcium Level 9.2 MG/DL (8.5-10.1) Total Bilirubin 0.8 MG/DL (0.2-1.0) Aspartate Amino Transf (AST/SGOT) 48 U/L (15-37) Alanine Aminotransferase (ALT/SGPT) 75 U/L (12-78) Alkaline Phosphatase 267 U/L (46-116) Total Creatine Kinase 30 U/L (26-308) Creatine Kinase MB 0.5 NG/ML (0.0-3.6) Creatine Kinase MB Relative Index 1.6 Troponin I 0.000 ng/mL (0.000-0.056) Total Protein 8.1 G/DL (6.4-8.2) Albumin 3.6 G/DL (3.4-5.0) Globulin 4.5 g/dL Albumin/Globulin Ratio 0.8 (1.0-2.7) Lipase 885 U/L (73-393) Rhythm Strip Diag. Results EP Interpretation: yes Rate: 66 Rhythm: NSR, no PVC's, no ectopy Chest X-Ray Diagnostic Results Chest X-Ray Diagnostic Results : Chest X-Ray Ordered: Yes # of Views/Limited/Complete: 1 View Indication: Chest Pain EP Interpretation: Yes Interpretation: no consolidation, no effusion, no pneumothorax Impression: No acute disease Electronically Signed by: Kassandra Holt, CT/MRI/US Diagnostic Results CT/MRI/US Diagnostic Results : Impression CT abdomen pelvis: acute pancreatitis Last Vital Signs Date Time Temp Pulse Resp B/P (MAP) Pulse Ox O2 Delivery O2 Flow Rate FiO2 06/10/18 22:38 97.2 06/10/18 22:17 86 12 141/71 100 Room Air Status: improved Disposition: XFER SHT-TRM HOSP Condition: Serious Referrals: [facility],REFERRING (PCP) Kassandra Holt DO Jun 11, 2018 00:19
[2018-06-11 00:25] VITALS: BP 126/58
[2018-06-11 00:36] VITALS: BP 126/58
--- NOTE | 2018-06-11 10:06 | Diagnostic Imaging Report ---
Indication: Abdominal pain, nausea, vomiting, constipation Technique: Spiral acquisitions obtained through the abdomen and pelvis. No oral contrast utilized, per emergency room physician request No IV contrast utilized, per referring physician request.. Multiplanar reconstructions were generated. Total dose length product 545.68 mGycm. CTDIvol(s) 11.15 mGy. Dose reduction achieved using automated exposure control Comparison: 04/07/2018 Findings: The pancreatic head and body are edematous and hypoattenuating, and there is infiltration of the peripancreatic fat. This is a new finding since prior exam. Extensive pancreatic parenchymal calcification is again demonstrated. No discrete peripancreatic fluid collections are demonstrated. Again demonstrated is a plastic endobiliary stent. There is no evidence of biliary ductal dilatation. Previously demonstrated pneumobilia is not evident currently. Again demonstrated is evidence of prior cholecystectomy. Lack of IV contrast limits assessment of the solid organs. The liver,, spleen, adrenals are unremarkable. No unusual calcifications are again demonstrated in or adjacent to the upper pole of the right kidney. The left kidney is unremarkable. No retroperitoneal or mesenteric mass or adenopathy. No pelvic mass or adenopathy. The right iliac bone appears asymmetrically osteoporotic with exaggerated trabecular markings. The appearance is similar to the prior exam. The included lung bases are clear. The appendix is normal. There is colonic diverticulosis. No evidence of diverticulitis. No small bowel distention. No free or loculated intraperitoneal air or fluid is evident. The distal esophagus, stomach, duodenum are unremarkable. Impression: Findings suspicious for acute pancreatitis. There is also evidence of chronic pancreatitis Evidence of prior cholecystectomy and endobiliary stent. No evidence of biliary ductal dilatation Colonic diverticulosis. 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 Reportedly, this is related to prior upper pole lumpectomy This agrees with the preliminary interpretation provided overnight by [facility] teleradiology service. The CT scanner at [facility] is accredited by the [employer] and the scans are performed using protocols designed to limit radiation exposure to as low as reasonably achievable to attain images of sufficient resolution adequate for diagnostic evaluation.
--- NOTE | 2018-06-11 12:00 | Diagnostic Imaging Report ---
Indication: Shortness of breath Technique: One view of the chest Comparison: 04/21/2018 Findings: Lungs and pleural spaces remain clear. Heart size is normal. No significant interim change Impression: No acute process
--- NOTE | 2018-06-12 15:43 | Cardiology Report ---
APPROVED REPORT EKG Measurement Heart [id number] Normal sinus rhythm Anteroseptal infarct, age undetermined Abnormal ECG
== END 2018-06-11 00:36 | disposition short-term general hospital (02) ==
LOC: EMR 21:41
DX: K85.90 Acute pancreatitis without necrosis or infection, unspecified (principal); I10 Essential (primary) hypertension; Z85.89 Personal history of malignant neoplasm of other organs and systems; Z90.49 Acquired absence of other specified parts of digestive tract; Z85.00 Personal history of malignant neoplasm of unspecified digestive organ
CPT/HCPCS: 36415; 71045; 74176; 80053; 81003; 82550; 82553; 83605; 83690; 84484; 85007; 85025; 87040; 93005; 96361; 96374; 96375; 96376; 99284; J1170; J2405

== ENCOUNTER 2018-12-24 17:15 | Emergency (ER) | payer MEDICARE, MEDICAID ==
[~2018-12-24] VITALS: Ht 185.4 cm; Wt 70.3 kg
[2018-12-24 17:29] VITALS: BP 132/82
[2018-12-24] MEDS ORDERED: Dexamethasone 4mg/ml vial IM ONE (18:00)
--- NOTE | 2018-12-24 18:02 | Emergency Room Report ---
History of Present Illness General Chief Complaint: Sore Throat Source: Patient Present Illness HPI 73-year-old male presents to the emergency department complaining of 7 out of 10 in severity burning sore throat times almost one month. Patient reports he has an appointment with GI specialist on the of this month. Patient denies fevers or chills she denies nausea, vomiting or inability to swallow. Patient reports pain with swallowing. Denies history of thyroid disorder. Patient denies swollen tender lymph nodes. He states that he also has a history of GERD. Allergies: Coded Allergies: No Known Allergies (Unverified , 12/24/18) Patient History Past Medical History: see triage record Past Surgical History: none Pertinent Family History: none Reviewed Nursing Documentation: PMH: Agreed; PSxH: Agreed Nursing Documentation-PMH Past Medical History: No History, Except For Hx Cardiac Problems: Yes Hx Hypertension: Yes Hx Cancer: Yes - Takes Chemo gallbladder Hx Gastrointestinal Problems: No - BPH, Gallbladder removed Hx Neurological Problems: No Review of Systems All Other Systems: negative except mentioned in HPI Physical Exam Vital Signs Date Time Temp Pulse Resp B/P (MAP) Pulse Ox O2 Delivery O2 Flow Rate FiO2 12/24/18 17:24 98.4 77 16 132/82 97 Room Air Sp02 EP Interpretation: reviewed, normal General Appearance: no apparent distress, alert, GCS 15, non-toxic Head: normocephalic, atraumatic Eyes: bilateral eye normal inspection, bilateral eye PERRL ENT: hearing grossly normal, normal pharynx, normal voice, uvula midline, moist mucus membranes, nasal congestion, other - no stridor Neck: full range of motion Respiratory: lungs clear, normal breath sounds, speaking full sentences Cardiovascular #1: regular rate, rhythm Musculoskeletal: back normal, gait/station normal, normal range of motion, non- tender Neurologic: alert, oriented x3, responsive, motor strength/tone normal, sensory intact, speech normal, grossly normal Psychiatric: judgement/insight normal Skin: normal color, no rash, warm/dry, well hydrated Lymphatic: no adenopathy Medical Decision Making PA Attestation Dr. Ramirez is my supervising Physician whom patient management has been discussed with. Diagnostic Impression: Primary Impression: Sore throat ER Course 73-year-old male presents to the emergency department complaining of 7 out of 10 in severity burning sore throat times almost one month. Patient reports he has an appointment with GI specialist on the of this month. Patient denies fevers or chills she denies nausea, vomiting or inability to swallow. Patient reports pain with swallowing. Denies history of thyroid disorder. Patient denies swollen tender lymph nodes. He states that he also has a history of GERD. Pt. reports feeling as though his throat is swollen. Ddx considered but are not limited to: pharyngitis, strep, ELECTRICIAN SUBSTATION SUPERVISOR, ludwigs angina, URI, erosive esophagitis. Vital signs: are WNL, pt. is afebrile H&PE are most consistent with: pharyngitis most likely secondary to GERD. Pt. to follow up with GI, no evidence of bacterial infection at this time. no evidence of impending airway compromise. ORDERS: None required at this time as the diagnosis is clinical ED INTERVENTIONS: -Decadron IM -I do not identify an emergent condition at this time. With current presentation , pt. is stable for close outpatient follow up and conservative treatment. D/ w pt. to return promptly to ED with worsening or new symptoms.- Pt. verbalizes' understanding and agreement with proposed treatment plan.proposed treatment plan. DISCHARGE: At this time pt. is stable for d/c to home. Will provide printed patient care instructions, and any necessary prescriptions. Care plan and follow up instructions have been discussed with the patient prior to discharge. Last Vital Signs Date Time Temp Pulse Resp B/P (MAP) Pulse Ox O2 Delivery O2 Flow Rate FiO2 12/24/18 17:29 98.4 77 16 132/82 97 Room Air Disposition: HOME, SELF-CARE Condition: Stable Scripts Famotidine/Ca Carb/Mag Hydrox (PEPCID COMPLETE TABLET CHEW) 1 Each Tab.chew 1 EACH PO BEFORE DINNER for 20 Days, #20 TAB Prov: Jesenia Lakhani 12/24/18 Lidocaine HCl 2% Viscous (Lidocaine HCl 2% Viscous) 100 Ml Solution 10 ML ORAL QID, #240 ML 1 Refill Prov: Jesenia Lakhani 12/24/18 Referrals: NON PHYSICIAN (PCP) Patient Instructions: Sore Throat Additional Instructions: Take medications as directed. Follow up with your GI specialist for endoscopy on the , even if your symptoms have resolved. Make sure your specialist is aware of your on-going sore throat Return sooner to ED if new symptoms occur, or current symptoms become worse. - Please note that this Emergency Department Report was dictated using Thoundssurgeon's assistant technology software, occasionally this can lead to erroneous entry secondary to interpretation by the dictation equipment. Jesenia Lakhani Dec 24, 2018 18:02
[2018-12-24] MEDS ORDERED: LIDOCAINE VISC100 ML ORAL ×2 (18:04→18:25)
[2018-12-24] MEDS ORDERED: PEPCID COMPLET1 EACH PO ×2 (18:10→18:25)
[2018-12-24 18:29] VITALS: BP 132/82
== END 2018-12-24 18:20 | disposition home or self-care (01) ==
LOC: EMR 17:56
DX: J02.9 Acute pharyngitis, unspecified (principal); I10 Essential (primary) hypertension; Z85.89 Personal history of malignant neoplasm of other organs and systems; Z92.21 Personal history of antineoplastic chemotherapy
CPT/HCPCS: 96372; 99282; J1100

== ENCOUNTER 2018-12-28 19:13 | Emergency (ER) | payer MEDICARE, MEDICAID ==
[~2018-12-28] VITALS: Ht 185.4 cm; Wt 72.6 kg
[~2018-12-28 19:13] MED LIST changes: +LIDOCAINE VISC100 ML ORAL; +PEPCID COMPLET1 EACH PO
--- NOTE | 2018-12-28 19:16 | NUR ---
ED Nurse Note: Pt ambulated to ED c/o sore throat, difficulty swallowing and generalized weakness x1 week.
[2018-12-28 19:26] VITALS: BP 121/71
[2018-12-28 21:30] VITALS: BP 123/69
[2018-12-28] MEDS ORDERED: Azithromycin 500 MG in D5W 275 ML IVPB ONE (21:30)
[2018-12-28] MEDS ORDERED: cefTRIAXone 1 GM in NS 55 ML IVPB ONE (21:30)
[2018-12-28 21:33] LABS: ANION GAP 9 mmol/L (5-15); BLOOD UREA NITROGEN 11 mg/dL (7-18); CALCIUM 8.2 MG/DL (8.5-10.1); CARBON DIOXIDE 24 MMOL/L (21-32); CHLORIDE 105 MMOL/L (98-107); CREATININE 1.1 MG/DL (0.55-1.30); POTASSIUM 3.4 MMOL/L (3.5-5.1); SODIUM 138 MMOL/L (136-145)
[2018-12-28 21:33] LABS: APPEARANCE,URINE CLEAR; BILIRUBIN, URINE 1+ (NEGATIVE); COLOR,URINE BROWN; GLUCOSE, URINE (UA) NEGATIVE (NEGATIVE); KETONES,URINE 1+ (NEGATIVE); LEUKOCYTE ESTERASE ,URINE 1+ (NEGATIVE); NITRITE,URINE NEGATIVE (NEGATIVE); PH,URINE 6 (4.5-8.0); PROTEIN,URINE 1+ (NEGATIVE); UROBILINOGEN,URINE 8 MG/DL (0.0-1.0)
[2018-12-28 21:37] LABS: HEMATOCRIT 32.8 % (42.0-52.0); MEAN CORPUSCULAR VOLUME 95 FL (80-99); PLATELET COUNT 88 K/UL (150-450); RED BLOOD COUNT 3.45 M/UL (4.70-6.10); RED CELL DISTRIBUTION WIDTH 12.5 % (11.6-14.8)
[2018-12-28 21:47] LABS: ALANINE AMINOTRANSFERASE 32 U/L (12-78); ALBUMIN 2.6 G/DL (3.4-5.0); ALBUMIN/GLOBULIN RATIO 0.5 (1.0-2.7); ALKALINE PHOSPHATASE 542 U/L (46-116); ASPARTATE AMINO TRANSFERASE 33 U/L (15-37); BILIRUBIN,TOTAL 1.4 MG/DL (0.2-1.0); CKMB < 0.5 NG/ML (0.0-3.6); CREATINE KINASE 43 U/L (26-308)
[2018-12-28 21:50] LABS: BILIRUBIN,DIRECT 0.5 MG/DL (0.0-0.3)
--- NOTE | 2018-12-28 22:04 | Diagnostic Imaging Report ---
EXAM: XR Chest, 1 View CLINICAL HISTORY: SOB TECHNIQUE: Frontal view of the chest. COMPARISON: CXR dated 06/10/18 FINDINGS: Lungs: Unremarkable. No consolidation. Pleural space: Unremarkable. No pneumothorax. Heart: Unremarkable. No cardiomegaly. Mediastinum: Unremarkable. Bones/joints: Unremarkable. IMPRESSION: Normal chest x-ray.
--- NOTE | 2018-12-28 22:49 | NUR ---
ED Nurse Note: ERMD AWARE OF RBC AND H&H LAB VALUES, WILL AWAIT FUTHER ORDERS
[2018-12-28 23:30] VITALS: BP 101/56
--- NOTE | 2018-12-28 23:30 | Emergency Room Report ---
History of Present Illness General Chief Complaint: Sore Throat Source: Patient (Otis Ramirez MD) Present Illness HPI Patient is a 73-year-old male presented after increased sore throat and fever. Patient reports of increased difficulty with swallowing. Patient a prior history of cancer. Patient was noted to have some increased difficulty breathing and somewhat productive cough. He reported having increased difficulty passing fluids he denies any vomiting. Patient had fever up to 101 degrees. Patient is currently a smoker. Patient had recent visit to this emergency department for similar symptoms. (Otis Ramirez MD) Allergies: Coded Allergies: No Known Allergies (Unverified , 12/24/18) Patient History Past Medical History: see triage record Reviewed Nursing Documentation: PMH: Agreed; PSxH: Agreed (Otis Ramirez MD) Nursing Documentation-PMH Past Medical History: No History, Except For Hx Cardiac Problems: Yes Hx Hypertension: Yes Hx Cancer: Yes - Takes Chemo gallbladder Hx Gastrointestinal Problems: No - BPH, Gallbladder removed Hx Neurological Problems: No (Otis Ramirez MD) Review of Systems All Other Systems: negative except mentioned in HPI (Otis Ramirez MD) Physical Exam Vital Signs Date Time Temp Pulse Resp B/P (MAP) Pulse Ox O2 Delivery O2 Flow Rate FiO2 12/28/18 19:16 99.1 94 12 121/71 90 12/28/18 21:30 Room Air Sp02 EP Interpretation: reviewed, normal General Appearance: normal inspection, well appearing, no apparent distress, alert, GCS 15, thin, Chronically Ill Head: atraumatic ENT: normal ENT inspection, hearing grossly normal, normal voice, dry mucus membranes Neck: normal inspection, supple, no bony tend, limited range of motion Respiratory: normal inspection, no retraction, wheezing Cardiovascular #1: regular rate, rhythm, no edema Gastrointestinal: normal inspection, normal bowel sounds, non tender, soft, no guarding, no hernia Genitourinary: no CVA tenderness Musculoskeletal: normal inspection, back normal, normal range of motion Neurologic: normal inspection, alert, oriented x3, responsive, director reactor projects III-XII nml as tested, speech normal Psychiatric: normal inspection, judgement/insight normal, mood/affect normal Skin: normal inspection, normal color, no rash (Otis Ramirez MD) Medical Decision Making Diagnostic Impression: Primary Impression: COPD (chronic obstructive pulmonary disease) Additional Impressions: Dehydration Leukocytosis ER Course Patient presented for shortness of breath. Differential included but was not limited to anemia, pneumonia, pneumothorax, myocardial infarction, pericardial effusion, congestive heart failure, acidosis. because of complexity of patient' s case laboratory testing and imaging studies were ordered. Patient was noted to be febrile and had prior history of gallbladder cancer. Patient was noted to have some increased cough. Patient was given IV Rocephin and Azithromycin. Patient was discussed with [facility] physician [facility] who agreed to accept the patient in transfer for management of acute febrile illness. Patient is currently stable for transfer. Labs Test 12/28/18 19:50 12/28/18 20:52 Urine Color Brown Urine Appearance Clear Urine pH 6 (4.5-8.0) Urine Specific [place] 1.010 (1.005-1.035) Urine Protein 1+ (NEGATIVE) Urine Glucose (UA) Negative (NEGATIVE) Urine Ketones 1+ (NEGATIVE) Urine Blood 1+ (NEGATIVE) Urine Nitrite Negative (NEGATIVE) Urine Bilirubin 1+ (NEGATIVE) Urine Ictotest Negative (NEGATIVE) Urine Urobilinogen 8 MG/DL (0.0-1.0) Urine Leukocyte Esterase 1+ (NEGATIVE) Urine RBC 2-4 /HPF (0 - 0) Urine WBC 0-2 /HPF (0 - 0) Urine Squamous Epithelial Cells None /LPF (NONE/OCC) Urine Bacteria Few /HPF (NONE) White Blood Count 13.0 K/UL (4.8-10.8) Red Blood Count 3.45 M/UL (4.70-6.10) Hemoglobin 11.0 G/DL (14.2-18.0) Hematocrit 32.8 % (42.0-52.0) Mean Corpuscular Volume 95 FL (80-99) Mean Corpuscular Hemoglobin 31.9 PG (27.0-31.0) Mean Corpuscular Hemoglobin Concent 33.6 G/DL (32.0-36.0) Red Cell Distribution Width 12.5 % (11.6-14.8) Platelet Count 88 K/UL (150-450) Mean Platelet Volume 8.9 FL (6.5-10.1) Neutrophils (%) (Auto) % (45.0-75.0) Lymphocytes (%) (Auto) % (20.0-45.0) Monocytes (%) (Auto) % (1.0-10.0) Eosinophils (%) (Auto) % (0.0-3.0) Basophils (%) (Auto) % (0.0-2.0) Differential Total Cells Counted 100 Neutrophils % (Manual) 76 % (45-75) Lymphocytes % (Manual) 12 % (20-45) Monocytes % (Manual) 10 % (1-10) Eosinophils % (Manual) 0 % (0-3) Basophils % (Manual) 0 % (0-2) Band Neutrophils 2 % (0-8) Platelet Estimate Decreased Platelet Morphology Normal Red Blood Cell Morphology Normal Sodium Level 138 MMOL/L (136-145) Potassium Level 3.4 MMOL/L (3.5-5.1) Chloride Level 105 MMOL/L (98-107) Carbon Dioxide Level 24 MMOL/L (21-32) Anion Gap 9 mmol/L (5-15) Blood Urea Nitrogen 11 mg/dL (7-18) Creatinine 1.1 MG/DL (0.55-1.30) Estimat Glomerular Filtration Rate mL/min (>60) Glucose Level 115 MG/DL (74-106) Lactic Acid Level 1.30 mmol/L (0.4-2.0) Calcium Level 8.2 MG/DL (8.5-10.1) Total Bilirubin 1.4 MG/DL (0.2-1.0) Direct Bilirubin 0.5 MG/DL (0.0-0.3) Aspartate Amino Transf (AST/SGOT) 33 U/L (15-37) Alanine Aminotransferase (ALT/SGPT) 32 U/L (12-78) Alkaline Phosphatase 542 U/L (46-116) Total Creatine Kinase 43 U/L (26-308) Creatine Kinase MB < 0.5 NG/ML (0.0-3.6) Creatine Kinase MB Relative Index 1.1 Troponin I 0.005 ng/mL (0.000-0.056) Pro-B-Type Natriuretic Peptide 1203 pg/mL (0-125) Total Protein 7.6 G/DL (6.4-8.2) Albumin 2.6 G/DL (3.4-5.0) Globulin 5.0 g/dL Albumin/Globulin Ratio 0.5 (1.0-2.7) Lipase 80 U/L (73-393) (Otis Ramirez MD) ER Course Please see above. Patient accepted at [facility]. Stable for transfer. (Parveen Pardo MD) Last Vital Signs Date Time Temp Pulse Resp B/P (MAP) Pulse Ox O2 Delivery O2 Flow Rate FiO2 12/28/18 21:30 98.6 12/28/18 21:30 94 33 123/69 97 Room Air Status: unchanged (Otis Ramirez MD) Status: improved (Parveen Pardo MD) Disposition: XFER SHT-TRM HOSP Condition: Serious Referrals: [facility],REFERRING (PCP) Otis Ramirez MD Dec 28, 2018 23:30 Parveen Pardo MD Dec 29, 2018 00:53
--- NOTE | 2018-12-28 23:44 | NUR ---
ED Nurse Note: KITTY KELSEY () [phone]
--- NOTE | 2018-12-29 01:16 | NUR ---
ED Nurse Note: TELEPHONE REPORT WAS GIVEN TO JESUS ROBERSON PT TRANSPORT IS AT BEDSIDE, PT VSS AT THE MOMENT, PT IS AOX4. ALL BELONGNIGS ARE WITH PT. PT IS ON 100% ROOM AIR. PT SHOWS NO SIGNS OF DISTRESS
[2018-12-29 01:19] VITALS: BP 107/62
[2018-12-29 01:21] VITALS: BP 107/62
--- NOTE | 2018-12-29 01:22 | NUR ---
ED Nurse Note: PT HAS LEFT ED WITH TRANPORT TEAM
--- NOTE | 2018-12-31 14:08 | Cardiology Report ---
APPROVED REPORT EKG Measurement Heart [id number] Normal sinus rhythm Anteroseptal infarct, age undetermined Abnormal ECG
== END 2018-12-29 01:22 | disposition short-term general hospital (02) ==
LOC: EMR 20:25
DX: J44.9 Chronic obstructive pulmonary disease, unspecified (principal); E86.0 Dehydration; D72.829 Elevated white blood cell count, unspecified; I10 Essential (primary) hypertension; Z85.89 Personal history of malignant neoplasm of other organs and systems; Z92.21 Personal history of antineoplastic chemotherapy; F17.200 Nicotine dependence, unspecified, uncomplicated
CPT/HCPCS: 36415; 71045; 80053; 81003; 82248; 82550; 82553; 83605; 83690; 83880; 84484; 85007; 85025; 86710; 87040; 87181; 93005; 96365; 96368; 99285; J0456; J0696

== ENCOUNTER 2019-07-07 09:31 | Emergency (ER) | payer MEDICARE, MEDICAID ==
[~2019-07-07] VITALS: Ht 185.4 cm; Wt 59.4 kg
[2019-07-07 09:42] VITALS: BP 114/66
[2019-07-07] MEDS ORDERED: NORCO 5-325 TA1 EACH ORAL ×2 (09:42→09:52)
[2019-07-07] MEDS ORDERED: FERROUS SULFAT325 MG ORAL (09:42)
--- NOTE | 2019-07-07 09:42 | NUR ---
ED Nurse Note: Patient walked in to ER from home due to Rt earache when he chews. Patient alert and oriented x4 and ambulatory. Calm and cooperative. Skin clean and intact. No acute distress noted at this moment.
[2019-07-07] MEDS ORDERED: AUGMENTIN 875-1 EAC1 ORAL (09:52)
--- NOTE | 2019-07-07 09:52 | Emergency Room Report ---
History of Present Illness General Chief Complaint: Earache Source: Patient Present Illness HPI 74-year-old male history of cancer non-remission presents with right earache x2 weeks, right molar pain, facial pain, no discharge no swelling, no aggravating or relieving factors no chest pain no shortness of breath, patient endorses an achy pain, mild severity. Patient is presenting for evaluation. Allergies: Coded Allergies: No Known Allergies (Unverified , 12/24/18) Patient History Past Medical History: see triage record Reviewed Nursing Documentation: PMH: Agreed; PSxH: Agreed Nursing Documentation-PMH Past Medical History: No History, Except For Hx Cardiac Problems: No Hx Hypertension: No Hx Pacemaker: No Hx Asthma: No Hx COPD: No Hx Diabetes: No Hx Cancer: Yes Hx Gastrointestinal Problems: No - BPH, gallstone removal Hx Dialysis: No Hx Neurological Problems: No Hx Cerebrovascular Accident: No Hx Seizures: No Review of Systems All Other Systems: negative except mentioned in HPI Physical Exam Vital Signs Date Time Temp Pulse Resp B/P (MAP) Pulse Ox O2 Delivery O2 Flow Rate FiO2 07/07/19 09:36 97.5 67 16 114/66 (82) 98 Room Air Sp02 EP Interpretation: reviewed, normal General Appearance: well appearing, no apparent distress, alert Head: normocephalic, atraumatic Eyes: bilateral eye PERRL, bilateral eye EOMI ENT: TMs + canals normal, uvula midline, moist mucus membranes, other - Poor dentition Neck: supple, thyroid normal, supple/symm/no masses Respiratory: lungs clear, no respiratory distress, no retraction, no accessory muscle use Cardiovascular #1: normal peripheral pulses, regular rate, rhythm, no edema, no gallop, no murmur Gastrointestinal: non tender, soft, no guarding, no rebound Musculoskeletal: normal inspection Neurologic: alert, oriented x3 Psychiatric: mood/affect normal Skin: no rash, warm/dry Medical Decision Making Diagnostic Impression: Primary Impression: Earache, right Additional Impression: Dental caries ER Course Patient with dental caries, earache, possible infection, patient will be prescribed antibiotics, counseled patient to follow-up with ENT and dentist return precautions discussed, cures report was ran, disposition home with return precautions Last Vital Signs Date Time Temp Pulse Resp B/P (MAP) Pulse Ox O2 Delivery O2 Flow Rate FiO2 07/07/19 09:42 97.5 68 16 114/66 98 Room Air Disposition: HOME, SELF-CARE Condition: Stable Scripts Amoxicillin/Potassium Clav 875-125* (AUGMENTIN 875-125 TABLET*) 1 Each Tablet 1 TAB ORAL TWICE A DAY, #14 TAB Prov: Gallito Sampson MD 07/07/19 Hydrocodone Bit/Acetaminophen 5-325* (NORCO 5-325*) 1 Each Tablet 1 TAB ORAL Q6H PRN for For Pain, #12 TAB 0 Refills Prov: Gallito Sampson MD 07/07/19 Referrals: [facility]. [facility] Patient Instructions: Dental Pain, [id number], Earache Additional Instructions: The patient was provided with discharge instructions, notified to follow-up with a primary care doctor and or specialist in the next 24-48 hours, and to return to the ED if they have worsening of their symptoms. Please note that this report is being documented using DRAGON technology. This can lead to erroneous entry secondary to incorrect interpretation by the dictating instrument. Follow up with, ENT doctor, dentist Gallito Sampson MD Jul 07, 2019 09:52
[2019-07-07 09:58] VITALS: BP 126/75
--- NOTE | 2019-07-07 09:59 | NUR ---
ER DISCHARGE NOTE: Patient is cleared to be discharged per ERMD, pt is aox4, on room air, with stable vital signs. pt was given dc and prescription instructions, pt was able to verbalize understanding, pt id band removed. pt is able to ambulate with steady gait. pt took all belongings.
== END 2019-07-07 09:59 | disposition home or self-care (01) ==
LOC: EMR 09:58
DX: H92.01 Otalgia, right ear (principal); N40.0 Benign prostatic hyperplasia without lower urinary tract symptoms; K02.9 Dental caries, unspecified; Z85.9 Personal history of malignant neoplasm, unspecified
CPT/HCPCS: 99282

== ENCOUNTER 2019-10-04 01:51 | Inpatient (IN) | payer MEDICARE, MEDICAID ==
[~2019-10-04] VITALS: Ht 185.4 cm; Wt 58.1 kg
[~2019-10-04 01:51] MED LIST changes: +AUGMENTIN 875-1 EAC1 ORAL; +FERROUS SULFAT325 MG ORAL
[2019-10-04] MEDS ORDERED: ACETAMINOPHEN-1 EAC1 ORAL (02:12)
--- NOTE | 2019-10-04 02:29 | Emergency Room Report ---
History of Present Illness General Chief Complaint: General Complaint Source: Patient Present Illness HPI Patient is a 74-year-old male presents after increased hemoptysis. Patient a prior history of cavitary lesions to his lung. He also had prior history of cancer. He reports of increased hemoptysis over the past few days. He had recently had a endoscopy procedure for stents to his abdomen. He had not been taking any blood thinners other than baby aspirin. He denies any fever. Reports having pain to the left side of his throat. Denies any other injuries of pain. Allergies: Coded Allergies: No Known Allergies (Unverified , 10/04/19) Patient History Past Medical History: see triage record Reviewed Nursing Documentation: PMH: Agreed; PSxH: Agreed Nursing Documentation-PMH Hx Cardiac Problems: No Hx Hypertension: No Hx Pacemaker: No Hx Asthma: No Hx COPD: No Hx Diabetes: No Hx Cancer: Yes - THROAT Hx Gastrointestinal Problems: No - BPH, gallstone removal Hx Dialysis: No Hx Neurological Problems: No Hx Cerebrovascular Accident: No Hx Seizures: No Review of Systems All Other Systems: negative except mentioned in HPI Physical Exam Vital Signs Date Time Temp Pulse Resp B/P (MAP) Pulse Ox O2 Delivery O2 Flow Rate FiO2 10/04/19 02:01 98.2 68 18 100/58 (72) 98 Room Air Sp02 EP Interpretation: reviewed, normal General Appearance: normal inspection, alert, GCS 15, cachetic, Chronically Ill Head: atraumatic Eyes: bilateral eye PERRL ENT: hearing grossly normal, normal voice Neck: normal inspection, supple, no bony tend, limited range of motion Respiratory: normal inspection, lungs clear, normal breath sounds, no respiratory distress, no retraction, no wheezing Cardiovascular #1: regular rate, rhythm, no edema Gastrointestinal: normal inspection, normal bowel sounds, non tender, soft, no guarding, no hernia Genitourinary: no CVA tenderness Musculoskeletal: normal inspection, back normal, decreased range of motion Neurologic: normal inspection, alert, oriented x3, responsive, wick tender III-XII nml as tested, speech normal Psychiatric: normal inspection, judgement/insight normal, mood/affect normal Skin: no rash Medical Decision Making Diagnostic Impression: Primary Impression: COPD (chronic obstructive pulmonary disease) Additional Impressions: Hemoptysis, unspecified Thrombocytopenia Renal insufficiency ER Course Patient presented for hemoptysis. Differential diagnosis include was not limited to COPD, tuberculosis, bronchiectasis, among others. Because of complexity of patient's case laboratory tests and imaging studies were ordered. Patient was noted to have prior history of some thrombocytopenia as well as prior history of COPD with some bronchiectasis. Patient was noted to have moderate amount of blood-tinged sputum. Patient was given breathing treatment. Laboratory testing was ordered. He was also given IV TPatient was noted to have some left lower lobe infiltrate on chest x-ray. Previous CT imaging from 2018 showed multiple bullous lesions as well as a 2 x 1.3 cm left apical nodule with cavitation as well as bandlike fibrosis of the lung apex. Patient hemoglobin appears to be diminished compared to patient's baseline from approximately 6 months ago.Patient will be admitted for further evaluation and treatment of hemoptysis.Dr. Kishor Aranda was contacted for inpatient management due to panel physician Labs Test 10/04/19 02:15 10/04/19 02:57 White Blood Count 5.6 K/UL (4.8-10.8) Red Blood Count 2.74 M/UL (4.70-6.10) Hemoglobin 9.1 G/DL (14.2-18.0) Hematocrit 26.2 % (42.0-52.0) Mean Corpuscular Volume 96 FL (80-99) Mean Corpuscular Hemoglobin 33.2 PG (27.0-31.0) Mean Corpuscular Hemoglobin Concent 34.7 G/DL (32.0-36.0) Red Cell Distribution Width 11.5 % (11.6-14.8) Platelet Count 93 K/UL (150-450) Mean Platelet Volume 7.6 FL (6.5-10.1) Neutrophils (%) (Auto) % (45.0-75.0) Lymphocytes (%) (Auto) % (20.0-45.0) Monocytes (%) (Auto) % (1.0-10.0) Eosinophils (%) (Auto) % (0.0-3.0) Basophils (%) (Auto) % (0.0-2.0) Differential Total Cells Counted 100 Neutrophils % (Manual) 70 % (45-75) Lymphocytes % (Manual) 12 % (20-45) Monocytes % (Manual) 17 % (1-10) Eosinophils % (Manual) 1 % (0-3) Basophils % (Manual) 0 % (0-2) Band Neutrophils 0 % (0-8) Platelet Estimate Decreased Platelet Morphology Normal Hypochromasia 2+ Anisocytosis 1+ Prothrombin Time 10.8 SEC (9.30-11.50) Prothromb Time International Ratio 1.0 (0.9-1.1) Activated Partial Thromboplast Time 30 SEC (23-33) Sodium Level 139 MMOL/L (136-145) Potassium Level 5.5 MMOL/L (3.5-5.1) Chloride Level 106 MMOL/L (98-107) Carbon Dioxide Level 27 MMOL/L (21-32) Anion Gap 6 mmol/L (5-15) Blood Urea Nitrogen 37 mg/dL (7-18) Creatinine 2.2 MG/DL (0.55-1.30) Estimat Glomerular Filtration Rate mL/min (>60) Glucose Level 112 MG/DL (74-106) Calcium Level 8.4 MG/DL (8.5-10.1) Total Bilirubin 0.5 MG/DL (0.2-1.0) Aspartate Amino Transf (AST/SGOT) 37 U/L (15-37) Alanine Aminotransferase (ALT/SGPT) 28 U/L (12-78) Alkaline Phosphatase 328 U/L (46-116) Troponin I 0.016 ng/mL (0.000-0.056) Pro-B-Type Natriuretic Peptide 1230 pg/mL (0-125) Total Protein 7.5 G/DL (6.4-8.2) Albumin 2.9 G/DL (3.4-5.0) Globulin 4.6 g/dL Albumin/Globulin Ratio 0.6 (1.0-2.7) Urine Color Pale yellow Urine Appearance Clear Urine pH 5 (4.5-8.0) Urine Specific Merkel 1.015 (1.005-1.035) Urine Protein Negative (NEGATIVE) Urine Glucose (UA) Negative (NEGATIVE) Urine Ketones Negative (NEGATIVE) Urine Blood Negative (NEGATIVE) Urine Nitrite Negative (NEGATIVE) Urine Bilirubin Negative (NEGATIVE) Urine Urobilinogen Normal MG/DL (0.0-1.0) Urine Leukocyte Esterase Negative (NEGATIVE) EKG Diagnostic Results Rate: normal Rhythm: NSR ST Segments: no acute changes Last Vital Signs Date Time Temp Pulse Resp B/P (MAP) Pulse Ox O2 Delivery O2 Flow Rate FiO2 10/04/19 02:01 98.2 68 18 100/58 (72) 98 Room Air Status: improved Disposition: ADMITTED INPATIENT Condition: Stable Otis Ramirez MD Oct 04, 2019 02:29
[2019-10-04] MEDS ORDERED: Tranexamic Acid 500 MG in NS 55 ML IVPB ONE (02:30)
[2019-10-04 02:59] VITALS: BP 100/58
--- NOTE | 2019-10-04 03:02 | NUR ---
ED Nurse Note: Patient walked in to ER from home due to coughing blood. States had throat cancer last year. AAO x4, VSS at this time, skin is dry warm to touch. Blood and urine collected , sent down.
[2019-10-04 03:12] LABS: HEMATOCRIT 26.2 % (42.0-52.0); HEMOGLOBIN 9.1 G/DL (14.2-18.0); MEAN CORPUSCULAR VOLUME 96 FL (80-99); PLATELET COUNT 93 K/UL (150-450); RED BLOOD COUNT 2.74 M/UL (4.70-6.10); RED CELL DISTRIBUTION WIDTH 11.5 % (11.6-14.8); WHITE BLOOD COUNT 5.6 K/UL (4.8-10.8)
[2019-10-04 03:16] LABS: APPEARANCE,URINE CLEAR; BILIRUBIN, URINE NEGATIVE (NEGATIVE); COLOR,URINE PALE YELLOW; GLUCOSE, URINE (UA) NEGATIVE (NEGATIVE); KETONES,URINE NEGATIVE (NEGATIVE); LEUKOCYTE ESTERASE ,URINE NEGATIVE (NEGATIVE); NITRITE,URINE NEGATIVE (NEGATIVE); PH,URINE 5 (4.5-8.0); PROTEIN,URINE NEGATIVE (NEGATIVE); UROBILINOGEN,URINE NORMAL MG/DL (0.0-1.0)
[2019-10-04 03:17] LABS: ANION GAP 6 mmol/L (5-15); BLOOD UREA NITROGEN 37 mg/dL (7-18); CALCIUM 8.4 MG/DL (8.5-10.1); CARBON DIOXIDE 27 MMOL/L (21-32); CHLORIDE 106 MMOL/L (98-107); CREATININE 2.2 MG/DL (0.55-1.30); POTASSIUM 5.5 MMOL/L (3.5-5.1); SODIUM 139 MMOL/L (136-145)
--- NOTE | 2019-10-04 03:22 | Diagnostic Imaging Report ---
EXAM: XR Chest, 1 View CLINICAL HISTORY: SOB TECHNIQUE: Frontal view of the chest. COMPARISON: 02 02 19 FINDINGS: Lungs: Left lower lobe opacity Pleural space: No acute findings Heart: No cardiomegaly. Bones joints: No acute findings. IMPRESSION: Left lower lobe aspiration versus atelectasis.
[2019-10-04 03:28] LABS: ALANINE AMINOTRANSFERASE 28 U/L (12-78); ALBUMIN 2.9 G/DL (3.4-5.0); ALBUMIN/GLOBULIN RATIO 0.6 (1.0-2.7); ALKALINE PHOSPHATASE 328 U/L (46-116); ASPARTATE AMINO TRANSFERASE 37 U/L (15-37); BILIRUBIN,TOTAL 0.5 MG/DL (0.2-1.0)
[2019-10-04] MEDS ORDERED: Morphine Sulfate 2mg/ml Inj(IV/IM USE ONLY) IVP ONE (03:30)
[2019-10-04 04:09] VITALS: BP 115/62
[2019-10-04] MEDS ORDERED: Piperacillin/Tazobactam 3.375 GM in NS 110 ML IVPB ONE (04:15)
[2019-10-04] MEDS ORDERED: Morphine Sulfate 2mg/ml Inj(IV/IM USE ONLY) ONE (05:45)
[2019-10-04 06:32] VITALS: BP 120/67
--- NOTE | 2019-10-04 06:33 | NUR ---
ED Nurse Note: Patient was admited to Tele unit due to hemoptysis, pt's hemoglobin level 9.1. Patient AAO x4, VSS at this time, ski is warm to touch., Patient was ransfered to the unit via gurney by ACLS protocol with all belongings. yl is running.
--- NOTE | 2019-10-04 06:45 | NUR ---
0645: Pt arrived on unit via gurney. Got report from vivek LEE. Denies any pain. Denies n/v or SOB. Observed pt spitting out blood. VS BP:100/55 HR:50 T:97.3 R:18 O2:99% on room air. Pt is fully alert and ambulatory. No skin issues noted. security monitor placed on pt. Continue to monitor.
--- NOTE | 2019-10-04 07:00 | NUR ---
HAND-OFF: Report given to Kera LEE.
--- NOTE | 2019-10-04 07:55 | NUR ---
NURSE NOTES: Received report from JESUS Ferguson. Pt in bed, awake, talkative, no complaints of pain, no respiratory distress noted, pt is coughing mild phlegm with slight low-tinged color, no admission orders in system at this time, plan of care discussed with pt, bed in lowest position, call light light within reach.
[2019-10-04] MEDS ORDERED: HYDROcodone/Acetamin 5/325 tab ORAL PRN ×2 (08:30)
[2019-10-04] MEDS: Tamsulosin 0.4mg cap ORAL SCH (09:00)
[2019-10-04] MEDS ORDERED: Milk of Magnesia 30ml Ud ORAL PRN (09:00)
[2019-10-04] MEDS: Augmentin 875mg Tab ORAL SCH ×2 (09:00→17:09)
[2019-10-04] MEDS: Tylenol #3 tab (300mg/30mg) ORAL SCH ×3 (09:00→17:09)
--- NOTE | 2019-10-04 09:41 | Consultation ---
Consult Note Assessment/Plan #[id number] hemoptysis hx of laryngeal ca hx of biliary stents copd monitor for now, apepars to have stopped hold asa and any anticoagulants monitor plts po as toelrated FUr with ENT 10/06 as scheduled María Stafford DO Oct 04, 2019 09:41
--- NOTE | 2019-10-04 11:36 | NUR ---
RD ASSESSMENT & RECOMMENDATIONS SEE CARE ACTIVITY FOR COMPLETE ASSESSMENT DAILY ESTIMATED NEEDS: Needs based on underweight, wt loss/ 58kg 30-35 kcals/kg 0092-8171 total kcals 1-1.5 g protein/kg 58-87 g total protein 25-30 mL/kg 0319-3569 total fluid mLs NUTRITION DIAGNOSIS: Increased kcal/prot needs R/T underweight status, recent significant wt loss as evidenced by pt is 70% IBW w/ BMI of 16.9, reports significant wt loss of 27#/17.4% in <1 year due to h/o throat CA, s/p chemo therapy. CURRENT DIET:REGULAR PO DIET RECOMMENDATIONS: Liberalized REGULAR/ texture as tolerated or per RECREATIONAL LEADER ADDITIONAL RECOMMENDATIONS: * Weekly standing wt monitoring: h/o wt loss, underweight * Consider RECREATIONAL LEADER eval for appropriate texture: h/o throat CA, h/o trach * Ensure Enlive BID w/ lunch and dinner (350kcal/20g prot per bottle) * Snacks BID in b/w melas * Monitor K closely, need for K restriction (K 5.5 on 10/04)
[2019-10-04 12:00] VITALS: BP 116/60
--- NOTE | 2019-10-04 15:30 | History and Physical Report ---
DATE OF ADMISSION: 10/04/2019 CHIEF COMPLAINT AND REASON FOR HOSPITALIZATION: The patient admitted with hemoptysis. 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 He had prior dysphagia requiring gastrostomy and now he is eating. He has mild throat pain when he swallows. He developed cough and hemoptysis last night and he came to the emergency room and thought important to admit the patient. PAST MEDICAL HISTORY: The patient has a history of hypertension and COPD. He also has a history of gallbladder cancer and prior stent. PAST SURGICAL HISTORY: Gallbladder, stent, and biopsy of throat cancer. ALLERGIES: None known. MEDICATIONS: Home medications are listed include Tylenol with codeine, amlodipine, Augmentin, aspirin, Xeloda, ferrous sulfate, [place], ibuprofen, losartan-HCT, and tamsulosin. HABITS: He smokes occasional, alcohol occasional. SYSTEM REVIEW: HEAD, EYES, EARS, NOSE, AND THROAT: Vision and hearing is good. ENDOCRINE: No diabetes or thyroid disease. PULMONARY: COPD as above. No prior hemoptysis. CARDIAC: No angina or [place]. There is a history of hypertension. GASTROINTESTINAL: Denies GI bleeding or abdominal pain. He has some constipation. GENITOURINARY: Mild prostate hypertrophy. No urinary retention. NEUROLOGIC: No CVA or seizures. CODE STATUS: DNR. PHYSICAL EXAMINATION: GENERAL: The patient is an alert man, thin, in no acute distress. VITAL SIGNS: Temperature 98.2, pulse 58, respirations 18, and blood pressure 115/62. HEAD, EYES, EARS, NOSE AND THROAT: Sclerae are nonicteric. Ocular motions intact in all directions. Oral mucosa is moist. NECK: No adenopathy. LUNGS: Clear. HEART: Regular rhythm. I hear no murmur. ABDOMEN: Soft without organomegaly. EXTREMITIES: No edema, cyanosis, or clubbing. LABORATORY AND DIAGNOSTIC DATA: Pertinent labs, chest x-ray shows left lower lobe aspiration versus atelectasis. His BUN 37 and creatinine 2.2, above baseline. Troponin 0.016. IMPRESSION: 1. Hemoptysis. 2. History of laryngeal cancer, status post treatment. 3. Chronic obstructive pulmonary disease. 4. Bronchitis. 5. Acute kidney injury, likely prerenal from diuretics. 6. History of gallbladder cancer. PLAN: We will hold diuretics, give hydration, and observe him for any further hemoptysis or dyspnea. Kishor Aranda M.D. DR: TOMAS JOB#: [id number] CC:
[2019-10-04 16:00] VITALS: BP 101/57
[2019-10-04] MEDS: HYDROcodone/Acetamin 5/325 tab ORAL PRN ×2 (16:23→20:42)
--- NOTE | 2019-10-04 16:42 | NUR ---
NURSE NOTES: Pt states he was prescribed Augmentin on 09/26/2019 for his EGD and told to take for 7 days. His last home dose was 10/03/2019. RN left message for Dr. Aranda asking to stop Augmentin Addendum: 10/04/19 at 1645 by SHAHNAZ SNOW RN NURSE NOTES: Dr. Aranda stated "I want to give it now because of the bronchitis"
--- NOTE | 2019-10-04 16:58 | NUR ---
CASE MANAGEMENT: REVIEW 74Y/MALE CC: DIFFICULTY SWALLOWING . COUGHING BLOOD . HX THROAT CA . GALLBLADDER CA SI: ANEMIA . BRONCHIECTASIS . HEMOPTYSIS T 98.2 HR 68 RR 18 BP 100/58 SAT 98% ROOM AIR H/H 9.1/26.1 IS: MORPHINE IV X1 TRANEXAMIC ACID IV X1 FLAGYL IV X1 ZOSYN IV IV X1 PATIENT ADMITTED TO TELEMETRY UNIT 10/04/2019 DCP: PATIENT IS FROM HOME
[2019-10-04] MEDS ORDERED: Tylenol #3 tab (300mg/30mg) ORAL PRN (17:13)
--- NOTE | 2019-10-04 19:07 | NUR ---
HAND-OFF: Report given to JESUS Gutierrez. Plan of care endorsed.
--- NOTE | 2019-10-04 19:08 | NUR ---
NURSE NOTES: Received pt from JESUS Cote. Pt is awake and resting in bed in no distress, no c/o pain. Iv site intact and patent. Bed locked in lowest position, call light within reach. Will continue with plan of care.
--- NOTE | 2019-10-04 19:16 | Consultation ---
DATE OF CONSULTATION: 10/04/2019 PULMONARY CONSULTATION REASON FOR CONSULTATION: Hemoptysis. HISTORY OF PRESENT ILLNESS: The patient is a 73-year-old gentleman, history of laryngeal cancer in the past, decannulated from his tracheostomy about 2 months ago, states that he had a GI procedure a week ago Sunday dinner with his and expectorated bright red blood, which is now stopped. He has an appointment with ENT on 10/06/2019. He otherwise had no chest pain, shortness of breath, nausea, vomiting, or diarrhea. The patient is not on any blood thinners except for aspirin. He has had no purulent sputum, but does have some regular phlegm production which he states is his baseline. PAST MEDICAL HISTORY: Includes laryngeal cancer, gallstones with stents, COPD, renal insufficiency, thrombocytopenia. SOCIAL HISTORY: Currently negative for tobacco or drugs. MEDICATIONS: Pre-hospital medications and present medications were reviewed, reconciled, and documented in the electronic medical record by dose, frequency, and route. PAST SURGICAL HISTORY: Includes tracheostomy for laryngeal cancer and stent in his gallbladder. PHYSICAL EXAMINATION: GENERAL: At the time my exam, he is alert he is oriented. He is tolerating regular diet. No acute distress. VITAL SIGNS: He is afebrile. Pulse 58, respirations 18, blood pressure 115/62. HEENT: Normocephalic, atraumatic. Oropharynx is moist. Nasal mucosa moist. NECK: Supple without lymphadenopathy. LUNGS: Decreased at the bases. No wheeze present. HEART: Regular rate and rhythm without a murmur. ABDOMEN: Soft and nontender. EXTREMITIES: No edema. NEUROLOGIC: No neurologic deficits. LABORATORY AND DIAGNOSTIC DATA: White count 5.6, hemoglobin 9.1, and platelets . Sodium 139, potassium 5.5, chloride 106, bicarb 27, BUN 37, creatinine 2.2, glucose is 112. Urinalysis is negative for leukocyte esterase. His INR is 1. His chest x-ray was obtained this morning, which shows possible atelectasis. ASSESSMENT AND PLAN: History of laryngeal cancer, hemoptysis, recent gastrointestinal procedure one week ago, thrombocytopenia. Plan for the patient, the patient is on p.o. antibiotics. Again recommendations to hold aspirin. The patient is currently not on any other anticoagulants. Monitor for hemoptysis. He should have follow up with his ENT appointment sooner if the bleeding does resume. DVT prophylaxis with SCDs. He is able to tolerate a regular diet. We will continue aspiration precautions. Repeat chest x-ray p.r.n. His labs do not indicate any infection and we will follow and trend accordingly. María Stafford D.O. DR: Leon JOB#: [id number] CC:
[2019-10-04 20:00] VITALS: BP 116/54
[2019-10-04] MEDS ORDERED: Tamsulosin 0.4mg cap ORAL SCH (21:00)
[2019-10-05] VITALS: BP 97/56
[2019-10-05 04:00] VITALS: BP 101/54
[2019-10-05] MEDS: HYDROcodone/Acetamin 5/325 tab ORAL PRN ×3 (04:23→12:43)
--- NOTE | 2019-10-05 07:09 | NUR ---
HAND-OFF: Report given to Kera. Pt sleeping in bed in no distress. Iv site intact and patent. Bed locked in lowest position, call light within reach. Endorsed plan of care.
--- NOTE | 2019-10-05 07:16 | NUR ---
NURSE NOTES: Received report from JESUS Gutierrez. Pt in bed, asleep, respirations regular and unlabored, IV fluid running according to order, bed in lowest position, call light within reach.
[2019-10-05 07:34] LABS: HEMATOCRIT 28.4 % (42.0-52.0); HEMOGLOBIN 9.5 G/DL (14.2-18.0); MEAN CORPUSCULAR VOLUME 98 FL (80-99); PLATELET COUNT 94 K/UL (150-450); RED CELL DISTRIBUTION WIDTH 11.9 % (11.6-14.8); WHITE BLOOD COUNT 4.3 K/UL (4.8-10.8)
[2019-10-05 07:48] LABS: ANION GAP 2 mmol/L (5-15); BLOOD UREA NITROGEN 29 mg/dL (7-18); CALCIUM 7.7 MG/DL (8.5-10.1); CARBON DIOXIDE 27 MMOL/L (21-32); CHLORIDE 103 MMOL/L (98-107); POTASSIUM 4.6 MMOL/L (3.5-5.1); SODIUM 132 MMOL/L (136-145)
[2019-10-05 08:00] VITALS: BP 103/56
[2019-10-05] MEDS: Augmentin 875mg Tab ORAL SCH (08:38)
[2019-10-05] MEDS: Tamsulosin 0.4mg cap ORAL SCH (08:39)
[2019-10-05 11:55] VITALS: BP 106/57
[2019-10-05] MEDS ORDERED: Sterile Water Irrig 1000ml IRRIG ONE (14:24)
--- NOTE | 2019-10-05 14:29 | NUR ---
NURSE NOTES: Pt discharged home with all belongings, accompanied by , Kym, IV removed intact, ID band removed, Tele box return to media monitor, pt signed and reviewed all DC paperwork and has hand-written Rx from Dr. Aranda, pt stable for discharge, ambulatory
--- NOTE | 2019-10-05 21:00 | Discharge Summary ---
DATE OF ADMISSION: 10/04/2019 DATE OF DISCHARGE: 10/05/2019 PERTINENT HISTORY: The patient is a 74-year-old man, who presented with hemoptysis, who has a history of laryngeal cancer, prior tracheostomy, radiation therapy, and prior gastrointestinal procedures. He apparently had some bright red blood from coughing and presented as above. PERTINENT PHYSICAL FINDINGS: See my dictated History and Physical. The throat showed no mucosal lesions. LUNGS: Clear. HEART: Regular rhythm. ABDOMEN: Soft without organomegaly. EXTREMITIES: No edema. COURSE IN THE HOSPITAL: The patient presented with hemoptysis that did not recur after initial presentation, hence the baby aspirin was stopped. He did have thrombocytopenia, platelets 93 and 94 with no further bleeding. He did have elevation of BUN 37, creatinine 2.2 after hydration 29 and 2.0 with a potassium of 5.5, fell to 4.6. The patient generally felt well. There is no fever or chills and no respiratory distress and he was subsequently discharged home in stable condition. He was instructed to stop aspirin until seen by his primary care physician and also stopped losartan in view of hyperkalemia and possibly acute kidney injury versus chronic. FINAL DIAGNOSES: 1. Hemoptysis. 2. History of laryngeal cancer. 3. Thrombocytopenia. 4. Chronic obstructive pulmonary disease. 5. Bronchitis. 6. Chronic kidney disease stage 3. 7. Possible acute kidney injury. 8. Hyperkalemia. 9. History of gallbladder cancer and prior stenting. 10. Anemia likely anemia of chronic disease. 11. History of hypertension. DISCHARGE DISPOSITION: He is discharged home on a regular diet and medications per the discharge medication list. Follow up by his primary care physician and oncologist in the outpatient setting. Kishor Aranda M.D. DR: BANG JOB#: [id number] CC:
--- NOTE | 2019-10-07 10:18 | NUR ---
*-* INSURANCE *-* ALL CLINICALS AND REVIEWS HAVE BEEN FAXED TO: [facility] No Ref# or yet #[phone] fax#[phone]
--- NOTE | 2019-10-08 21:18 | Coder Physician Query ---
Clarification is required for compliance, coding accuracy, and to reflect severity of illness for this patient Dear Dr. Aranda Date: 10/08/19 Ceo Na/CDS Name: VelasquezTOY The patient was admitted with hemoptysis. COURSE IN THE HOSPITAL: The patient presented with hemoptysis that did not recur after initial presentation, hence the baby aspirin was stopped. He did have thrombocytopenia, platelets 93 and 94 with no further bleeding. He did have elevation of BUN 37, creatinine 2.2 after hydration 29 and 2.0 with a potassium of 5.5, fell to 4.6. FINAL DIAGNOSES: 1. Hemoptysis. 2. History of laryngeal cancer. 3. Thrombocytopenia. 4. Chronic obstructive pulmonary disease. 5. Bronchitis. 6. Chronic kidney disease stage 3. 7. Possible acute kidney injury. 8. Hyperkalemia. 9. History of gallbladder cancer and prior stenting. 10. Anemia likely anemia of chronic disease. 11. History of hypertension. Please respond to the following question: Is there an underlying diagnosis specific to the symptoms of hemoptysis? If so please state below. PHYSICIAN RESPONSE: laryngeal cancer Kishor Aranda M.D. Date & Time Please also document in your Progress Notes and/or Discharge Summary and indicate if the condition was present on admission. MTDD
== END 2019-10-05 14:25 | disposition home or self-care (01) | DRG 147 ==
LOC: EMR 02:20 → 2E 04:40 → EDBEDREQ 04:51
DX: C32.1 Malignant neoplasm of supraglottis (principal); R04.2 Hemoptysis; N17.9 Acute kidney failure, unspecified; J44.9 Chronic obstructive pulmonary disease, unspecified; D69.6 Thrombocytopenia, unspecified; Z92.3 Personal history of irradiation; Z79.82 Long term (current) use of aspirin; Z85.21 Personal history of malignant neoplasm of larynx; N40.0 Benign prostatic hyperplasia without lower urinary tract symptoms; I12.9 Hypertensive chronic kidney disease with stage 1 through stage 4 chronic kidney disease, or unspecified chronic kidney disease; J40 Bronchitis, not specified as acute or chronic; N18.3 Chronic kidney disease, stage 3 (moderate); D63.8 Anemia in other chronic diseases classified elsewhere; Z87.891 Personal history of nicotine dependence; E87.5 Hyperkalemia
CPT/HCPCS: 36415; 71045; 80048; 80053; 81003; 83880; 84484; 85007; 85025; 85610; 85730; 86850; 86900; 86901; 87040; 96365; 96367; 96375; 99285; J7030

== ENCOUNTER 2019-11-30 21:26 | Emergency (ER) | payer OTHER, MEDICAID ==
[~2019-11-30] VITALS: Ht 185.4 cm; Wt 59.0 kg
[~2019-11-30 21:26] MED LIST changes: +ACETAMINOPHEN-1 EAC1 ORAL
--- NOTE | 2019-11-30 21:40 | NUR ---
ED Nurse Note: Pt walked into ED from home for c/o bilat knee pain onset yesterday. Pt states he was walking and tripped over the curb causing him to fall on his knees. No head trauma or LOC noted. Pt has abrasion to L knee, bilat leg swelling noted. Pt is aaox4, no cardiac or respiratory distress noted. Will continue to monitor.
--- NOTE | 2019-11-30 22:18 | Emergency Room Report ---
History of Present Illness General Chief Complaint: Lower Extremity Injury Source: Patient Present Illness HPI This a 74-year-old male with a history of throat cancer from smoking. He is status post chemotherapy and radiation. He presents with chief complaint of bilateral lower extreme edema. Is been ongoing for a week. He had this problem before. Usually when he elevates his leg it better. Is not getting better now. No shortness of breath. No fever chest pain no nausea no vomiting. No chest pain. Denies any other complaint. Swelling is worse with gravity. Better with elevation. Allergies: Coded Allergies: No Known Allergies (Unverified , 10/04/19) Patient History Past Medical History: see triage record, old chart reviewed Past Surgical History: other Pertinent Family History: none Social History: Denies: smoking - History Immunizations: other Reviewed Nursing Documentation: PMH: Agreed; PSxH: Agreed Nursing Documentation-PMH Past Medical History: No History, Except For Hx Cardiac Problems: No Hx Hypertension: No Hx Pacemaker: No Hx Asthma: No Hx COPD: No Hx Diabetes: No Hx Cancer: Yes - THROAT Hx Gastrointestinal Problems: Yes Hx Dialysis: No Hx Neurological Problems: No Hx Cerebrovascular Accident: No Hx Seizures: No Review of Systems Eye: Denies: eye pain, blurred vision ENT: Denies: ear pain, nose congestion, throat swelling Respiratory: Denies: cough, shortness of breath Cardiovascular: Denies: chest pain, palpitations Gastrointestinal: Denies: abdominal pain, diarrhea, nausea, vomiting Musculoskeletal: Denies: back pain, joint pain Skin: Denies: rash Neurological: Denies: headache, numbness Endocrine: Denies: increased thirst, increased urine Hematologic/Lymphatic: Denies: easy bruising All Other Systems: negative except mentioned in HPI Physical Exam Vital Signs Date Time Temp Pulse Resp B/P (MAP) Pulse Ox O2 Delivery O2 Flow Rate FiO2 11/30/19 21:33 97.5 65 18 86/49 (61) 97 Room Air Vitals with hypotension. Repeat blood pressure is normal. Sp02 EP Interpretation: reviewed, normal General Appearance: no apparent distress, alert, cachetic, thin Head: normocephalic, atraumatic Eyes: bilateral eye PERRL, bilateral eye EOMI ENT: hearing grossly normal, normal pharynx Neck: full range of motion, supple, no meningismus Respiratory: chest non-tender, normal breath sounds, rales - Left base Cardiovascular #1: regular rate, rhythm, no murmur Gastrointestinal: normal bowel sounds, non tender, no mass, no organomegaly, no bruit, non-distended Musculoskeletal: back normal, normal range of motion, gait/station normal, swelling - 2+ pitting edema Psychiatric: mood/affect normal Medical Decision Making Diagnostic Impression: Primary Impression: Pedal edema Additional Impressions: Pleural effusion, left Anemia Qualified Codes: D64.9 - Anemia, unspecified ER Course Patient presents with lower extremity edema. He had recent CAT scan/PET scan done. He was diagnosed with a left lung tumor. He had biopsy done few days ago at [place]. He has a follow-up appointment with her oncologist at [facility] this Sunday. He was told that he has lung cancer. No treatment has been done yet. Appointment on Sunday will set timeframe for chemotherapy. I suspect that his left pleural effusion is malignant in nature. He is cachectic and has low albumin. This probably explain his edema. Obvious of ACS or PE. No evidence of any dissection. BNP is elevated secondary to his effusion. He also had blood work done last week. He has not follow-up for the results yet. EKG Diagnostic Results Rate: normal Rhythm: NSR ST Segments: no acute changes Rhythm Strip Diag. Results EP Interpretation: yes Rate: 100 Rhythm: NSR, no PVC's, no ectopy Chest X-Ray Diagnostic Results Chest X-Ray Diagnostic Results : Chest X-Ray Ordered: Yes # of Views/Limited/Complete: 1 View Indication: Shortness of Breath EP Interpretation: Yes Interpretation: no consolidation, no pneumothorax, other - COPD. Left pleural effusion. Impression: Other - left pleural effusion Last Vital Signs Date Time Temp Pulse Resp B/P (MAP) Pulse Ox O2 Delivery O2 Flow Rate FiO2 11/30/19 21:33 97.5 65 18 86/49 (61) 97 Room Air Status: improved Disposition: HOME, SELF-CARE Condition: Stable Scripts Furosemide* (LASIX*) 20 Mg Tablet 20 MG ORAL DAILY, #14 TAB Prov: Aniceto Lala MD 11/30/19 Additional Instructions: Elevate leg. Wear compression stocking. Follow-up with your doctor on Sunday as scheduled. Bring the labs with you. Return if symptoms worsen. Aniceto Lala MD Nov 30, 2019 22:18
[2019-11-30 22:46] LABS: HEMATOCRIT 21.8 % (42.0-52.0); HEMOGLOBIN 7.7 G/DL (14.2-18.0); MEAN CORPUSCULAR VOLUME 95 FL (80-99); PLATELET COUNT 84 K/UL (150-450); RED BLOOD COUNT 2.29 M/UL (4.70-6.10)
[2019-11-30 22:57] LABS: ANION GAP 8 mmol/L (5-15); BLOOD UREA NITROGEN 29 mg/dL (7-18); CALCIUM 7.7 MG/DL (8.5-10.1); CARBON DIOXIDE 27 MMOL/L (21-32); CHLORIDE 106 MMOL/L (98-107); POTASSIUM 3.9 MMOL/L (3.5-5.1); SODIUM 140 MMOL/L (136-145)
[2019-11-30 23:08] LABS: ALANINE AMINOTRANSFERASE 27 U/L (12-78); ALBUMIN 2.5 G/DL (3.4-5.0); ALBUMIN/GLOBULIN RATIO 0.6 (1.0-2.7); ALKALINE PHOSPHATASE 280 U/L (46-116); ASPARTATE AMINO TRANSFERASE 33 U/L (15-37); BILIRUBIN,TOTAL 0.5 MG/DL (0.2-1.0)
[2019-11-30] MEDS ORDERED: FUROSEMIDE20 M1 ORAL (23:53)
[2019-12-01 00:05] VITALS: BP 100/62
--- NOTE | 2019-12-01 00:05 | NUR ---
ER DISCHARGE NOTE: Patient is cleared to be discharged per ERMD, pt is aox4, on room air, with stable vital signs. pt was given dc and prescription instructions, pt was able to verbalize understanding, pt id band and iv site removed without complications. pt is able to ambulate with steady gait. pt took all belongings.
--- NOTE | 2019-12-01 10:57 | Diagnostic Imaging Report ---
Indication: Shortness of breath Technique: One view of the chest Comparison: 10/04/2019 Findings: Interim development of a moderate to large left pleural effusion. There may be some compressive atelectasis at the left lung base. There is mild central bronchial wall thickening. The lungs are otherwise clear. The right pleural space is clear. The heart size is normal. Impression: Moderate to large left pleural effusion, developing since prior exam of September Possible left basilar compressive atelectatic changes
== END 2019-12-01 00:05 | disposition home or self-care (01) ==
LOC: EMR 23:34
DX: R60.0 Localized edema (principal); J90 Pleural effusion, not elsewhere classified; D64.9 Anemia, unspecified; Z85.850 Personal history of malignant neoplasm of thyroid; J44.9 Chronic obstructive pulmonary disease, unspecified
CPT/HCPCS: 36415; 71045; 80053; 83880; 84484; 85007; 85025; 93005; 96374; 96376; 99284; J1940